=== PATIENT | male | born 1960 | race African-American/Black ===

== ENCOUNTER 2018-11-13 12:06 | Emergency (ER) | payer MEDICAID, OTHER ==
[~2018-11-13] VITALS: Ht 170.2 cm; Wt 74.8 kg
[~2018-11-13 12:06] MED LIST: ASPI1TAB19 PO; ATOR20TA PO; CARI-277; FUR40T PO; MET5XLT PO; METO100T87 PO; NITR0.4D10; PERCOT PO; POTA20TA53 PO
[2018-11-13] MEDS ORDERED: cloNIDine HCL 0.1 MG TAB PO ONE (16:30)
[2018-11-13 16:32] VITALS: BP 197/125
[2018-11-13] MEDS ORDERED: METOPROLOL TARTRATE 50 MG TAB PO ONE (16:45)
== END 2018-11-13 18:11 | disposition home or self-care (01) ==
LOC: ER 12:06
DX: I10 Essential (primary) hypertension (principal); Z76.0 Encounter for issue of repeat prescription; Z95.1 Presence of aortocoronary bypass graft

== ENCOUNTER 2021-08-01 00:06 | Emergency (ER) | payer SELFPAY ==
[~2021-08-01] VITALS: Ht 172.7 cm; Wt 77.1 kg
[~2021-08-01 00:06] MED LIST changes: -MET5XLT PO; +METO-6 PO; -NITR0.4D10; +NITR0.4D5; +POTA-220 PO; -POTA20TA53 PO
[2021-08-01] MEDS ORDERED: SODIUM CHLORIDE 0.9% 1,000 ML IV ONE ×2 (00:45→10:15)
[2021-08-01 02:10] LABS: Basophils # (auto) 0 10 ^3/uL (0-0.2); Basophils % (auto) 0.2 % (0.0-2.0); Eosinophils # (auto) 0 10 ^3/uL (0-0.8); Eosinophils % (auto) 0.1 % (0.0-7.0); Hematocrit 47.5 % (41.0-53.0); Hemoglobin 15.7 g/dL (13.5-17.5); Lymphocytes # (auto) 1.3 10 ^3/uL (0.4-5.4); Lymphocytes % (auto) 16.6 % (10.0-50.0); Mean Corpuscular Hgb Conc. 33.1 g/dL (32.0-36.0); Mean Corpuscular Volume 87.8 fL (80.0-100.0); Monocytes # (auto) 1.1 10 ^3/uL (0-1.3); Monocytes % (auto) 13.5 % (0.0-12.0); Neutrophils # (auto) 5.6 10 ^3/uL (1.6-8.6); Neutrophils % (auto) 69.6 % (37.0-80.0); Nucleated Red Blood Cells % 0.1 %; Red Cell Distribution Width 14.4 % (11.8-14.3)
[2021-08-01 03:15] LABS: Calcium 8.3 mg/dL (8.5-10.1); Potassium 3.6 mmol/L (3.5-5.1)
[2021-08-01 03:18] LABS: BUN/Creatinine Ratio 12.9
[2021-08-01 12:15] VITALS: BP 162/93
== END 2021-08-01 12:23 | disposition home or self-care (01) ==
LOC: EDBD 00:06 → ER 00:06
DX: R42 Dizziness and giddiness (principal); I10 Essential (primary) hypertension; I25.2 Old myocardial infarction; Z86.73 Personal history of transient ischemic attack (TIA), and cerebral infarction without residual deficits; Z95.1 Presence of aortocoronary bypass graft; Z79.899 Other long term (current) drug therapy
CPT/HCPCS: 36415; 71045; 80048; 83605; 84484; 85025; 93005; 96360; 96361; 99285; J7030

== ENCOUNTER 2021-08-05 15:29 | Emergency (ER) | payer SELFPAY ==
[~2021-08-05] VITALS: Ht 170.2 cm; Wt 79.4 kg
[2021-08-05] MEDS ORDERED: AZITHROMYCIN 500MG/ 250ML 250 ML IV ONE (18:15)
[2021-08-05] MEDS ORDERED: DexAMETHasone SOD PHOS 10MG/1ML VIAL INJ IV ONE (18:15)
[2021-08-05] MEDS ORDERED: cefTRIAXone 1GM/50ML D5W 50 ML IV ONE (18:15)
[2021-08-05 19:13] LABS: Basophils # (auto) 0 10 ^3/uL (0-0.2); Basophils % (auto) 0.1 % (0.0-2.0); Eosinophils # (auto) 0 10 ^3/uL (0-0.8); Hematocrit 45.2 % (41.0-53.0); Hemoglobin 15.1 g/dL (13.5-17.5); Lymphocytes # (auto) 1.1 10 ^3/uL (0.4-5.4); Lymphocytes % (auto) 17.4 % (10.0-50.0); Mean Corpuscular Hemoglobin 28.3 pg (28.0-32.0); Mean Corpuscular Hgb Conc. 33.3 g/dL (32.0-36.0); Mean Corpuscular Volume 84.8 fL (80.0-100.0); Monocytes # (auto) 0.4 10 ^3/uL (0-1.3); Monocytes % (auto) 6.7 % (0.0-12.0); Neutrophils # (auto) 4.8 10 ^3/uL (1.6-8.6); Neutrophils % (auto) 75.8 % (37.0-80.0); Nucleated Red Blood Cells % 0.1 %; Red Blood Cells 5.32 10^6/uL (4.5-5.90); Red Cell Distribution Width 14.1 % (11.8-14.3); White Blood Cell 6.3 10^3/uL (4.4-10.8)
[2021-08-05 19:22] LABS: Albumin 3.5 g/dL (3.4-5.0); Calcium 8.2 mg/dL (8.5-10.1); Potassium 3.3 mmol/L (3.5-5.1)
[2021-08-05 19:28] LABS: BUN/Creatinine Ratio 10.5; Bilirubin, Total 0.7 mg/dL (0.2-1.0)
[2021-08-05 21:40] VITALS: BP 150/68
== END 2021-08-05 21:42 | disposition home or self-care (01) ==
LOC: ER 15:29
DX: U07.1 COVID-19 (principal); J12.82 Pneumonia due to coronavirus disease 2019; I10 Essential (primary) hypertension; I25.2 Old myocardial infarction; Z86.73 Personal history of transient ischemic attack (TIA), and cerebral infarction without residual deficits; Z95.1 Presence of aortocoronary bypass graft
CPT/HCPCS: 36415; 70450; 71046; 80053; 82728; 84484; 85025; 86141; 87426

== ENCOUNTER 2024-01-14 16:13 | Inpatient (IN) | payer OTHER ==
[~2024-01-14] VITALS: Ht 172.7 cm; Wt 83.0 kg
[2024-01-14 16:48] LABS: Basophils # (auto) 0.1 10 ^3/uL (0-0.2); Eosinophils # (auto) 0.3 10 ^3/uL (0-0.8); Eosinophils % (auto) 2.4 % (0.0-7.0); Hematocrit 43.7 % (41.0-53.0); Hemoglobin 14.8 g/dL (13.5-17.5); Lymphocytes # (auto) 2.2 10 ^3/uL (0.4-5.4); Lymphocytes % (auto) 17.8 % (10.0-50.0); Mean Corpuscular Hemoglobin 28.3 pg (28.0-32.0); Mean Corpuscular Hgb Conc. 33.9 g/dL (32.0-36.0); Mean Corpuscular Volume 83.6 fL (80.0-100.0); Monocytes % (auto) 7.8 % (0.0-12.0); Neutrophils # (auto) 8.9 10 ^3/uL (1.6-8.6); Nucleated Red Blood Cells % 0.2 %; Red Blood Cells 5.23 10^6/uL (4.5-5.90); Red Cell Distribution Width 16.1 % (11.8-14.3); White Blood Cell 12.6 10^3/uL (4.4-10.8)
[2024-01-14 17:23] LABS: Alanine Aminotransferase 21 U/L (7-40); Alkaline Phosphatase 101 U/L (46-116); Anion Gap 10 (5-15); Aspartate Aminotransferase 63 U/L (13-40); BUN/Creatinine Ratio 7.1 (10.0-20.0); Blood Urea Nitrogen 9 mg/dL (9-23); Carbon Dioxide 23 mmol/L (20-30); Chloride 105 mmol/L (98-107); Glucose 127 mg/dL (74-106); Potassium 3.8 mmol/L (3.5-5.1); Sodium 138 mmol/L (136-145)
[2024-01-14 17:24] LABS: Albumin 3.9 g/dL (3.2-4.8); Bilirubin, Total 0.4 mg/dL (0.2-1.0); Total Protein 7.5 g/dL (5.7-8.2)
[2024-01-14] MEDS: HEPARIN SODIUM (PORCINE) 5000 UNITS/ML 1ML VIAL IV ONE ×2 (18:15→18:50)
[2024-01-14] MEDS ORDERED: NITROGLYCERIN 0.4 MG SL TAB SL PRN (18:15)
[2024-01-14] MEDS ORDERED: ACETAMINOPHEN 325 MG TAB PO PRN (18:15)
[2024-01-14 18:25] VITALS: PULSE 93; RESP 19; O2SAT 98
[2024-01-14] MEDS ORDERED: HEPARIN DRIP/D5W 100UNITS/ML 250 ML IV SCH (18:30)
[2024-01-14] MEDS: HEPARIN DRIP/D5W 100UNITS/ML 250 ML IV SCH (18:50)
[2024-01-14] MEDS: ASPirin 81 mg TAB PO ONE (18:52)
[2024-01-14] MEDS: ATORVASTATIN 20 MG TAB PO ONE (18:53)
[2024-01-14 19:06] LABS: Basophils # (auto) 0.1 10 ^3/uL (0-0.2); Basophils % (auto) 0.7 % (0.0-2.0); Eosinophils # (auto) 0.3 10 ^3/uL (0-0.8); Eosinophils % (auto) 2.4 % (0.0-7.0); Hematocrit 42.7 % (41.0-53.0); Hemoglobin 14.2 g/dL (13.5-17.5); Lymphocytes # (auto) 2.5 10 ^3/uL (0.4-5.4); Lymphocytes % (auto) 19.4 % (10.0-50.0); Mean Corpuscular Hemoglobin 27.3 pg (28.0-32.0); Mean Corpuscular Hgb Conc. 33.3 g/dL (32.0-36.0); Mean Corpuscular Volume 82.1 fL (80.0-100.0); Monocytes # (auto) 1.1 10 ^3/uL (0-1.3); Monocytes % (auto) 8.6 % (0.0-12.0); Neutrophils # (auto) 8.8 10 ^3/uL (1.6-8.6); Neutrophils % (auto) 68.9 % (37.0-80.0); Nucleated Red Blood Cells % 0.6 %; Red Cell Distribution Width 15.9 % (11.8-14.3); White Blood Cell 12.8 10^3/uL (4.4-10.8)
[2024-01-14 19:21] LABS: INR 1.01 (0.9-1.15); Partial Thromboplastin Time 25.7 SEC (24.5-34.5); Prothrombin Time 10.7 sec (9.3-11.8)
[2024-01-14 19:23] LABS: Magnesium 1.8 mg/dL (1.6-2.6); Triglycerides 465 mg/dL (< 150)
[2024-01-14 19:25] LABS: Cholesterol 210 mg/dL (< 200); HDL Cholesterol 32 mg/dL (40-59)
[2024-01-14 19:48] VITALS: PULSE 93
[2024-01-14] MEDS ORDERED: MORPHINE SULFATE INJ 2 MG/ml SYRG IV PRN (20:00)
[2024-01-14] MEDS ORDERED: hydrALAZINE HCL 20 MG/ML VL IV PRN (20:00)
[2024-01-14] MEDS ORDERED: ONDANSETRON HCL 4 MG/2 ML VIAL IV PRN (20:00)
[2024-01-14 21:39] LABS: Urine Bacteria None Seen /hpf (None Seen)
[2024-01-14 21:51] LABS: Urine Blood Negative /uL (Negative); Urine Clarity Clear (Clear); Urine Color Light-Yellow (Yellow); Urine Protein, UAD Negative (Negative); Urine Urobilinogen Normal (Negative); Urine WBC <1 /hpf (0 - 3)
[2024-01-14] MEDS: METOPROLOL TARTRATE 25 MG TAB PO SCH (22:43)
[2024-01-15] VITALS (9 sets, daily range): BP systolic 109–146; BP diastolic 67–115; PULSE 80–100; RESP 12–20; TEMP 98.3; O2SAT 90–99
[2024-01-15 00:37] LABS: INR 1.05 (0.9-1.15); Prothrombin Time 11.1 sec (9.3-11.8)
[2024-01-15 00:40] LABS: Partial Thromboplastin Time 78.3 SEC (24.5-34.5)
[2024-01-15] MEDS: MORPHINE SULFATE INJ 2 MG/ml SYRG IV PRN (03:46)
[2024-01-15 07:08] LABS: INR 1.07 (0.9-1.15); Partial Thromboplastin Time 48.2 SEC (24.5-34.5); Prothrombin Time 11.3 sec (9.3-11.8)
[2024-01-15 08:44] LABS: Basophils # (auto) 0.1 10 ^3/uL (0-0.2); Basophils % (auto) 0.5 % (0.0-2.0); Eosinophils # (auto) 0.3 10 ^3/uL (0-0.8); Eosinophils % (auto) 2.9 % (0.0-7.0); Hematocrit 43.3 % (41.0-53.0); Hemoglobin 14.4 g/dL (13.5-17.5); Lymphocytes # (auto) 2.5 10 ^3/uL (0.4-5.4); Lymphocytes % (auto) 20.4 % (10.0-50.0); Mean Corpuscular Hemoglobin 27.2 pg (28.0-32.0); Mean Corpuscular Hgb Conc. 33.3 g/dL (32.0-36.0); Mean Corpuscular Volume 81.7 fL (80.0-100.0); Monocytes # (auto) 1.1 10 ^3/uL (0-1.3); Monocytes % (auto) 8.8 % (0.0-12.0); Neutrophils # (auto) 8.1 10 ^3/uL (1.6-8.6); Neutrophils % (auto) 67.4 % (37.0-80.0); Nucleated Red Blood Cells % 0.1 %; Red Blood Cells 5.29 10^6/uL (4.5-5.90); Red Cell Distribution Width 15.9 % (11.8-14.3); White Blood Cell 12.1 10^3/uL (4.4-10.8)
[2024-01-15] MEDS ORDERED: ATOR-507 PO (10:10)
[2024-01-15] MEDS ORDERED: NAP500T PO (10:14)
[2024-01-15] MEDS ORDERED: MET25T PO (10:14)
[2024-01-15] MEDS ORDERED: LOSA100T33 PO (10:14)
[2024-01-15] MEDS: ASPirin 81 mg TAB PO SCH (11:01)
[2024-01-15 14:44] LABS: INR 1.08 (0.9-1.15); Partial Thromboplastin Time 57.3 SEC (24.5-34.5); Prothrombin Time 11.4 sec (9.3-11.8)
[2024-01-15] MEDS: IODIXANOL 320MG/ML 100ML BTL IV ONE ×2 (14:54→16:40)
[2024-01-15] MEDS: LIDOCAINE 2%HCL (LOCAL ANESTH.) INJ 20ML MDV ONE (14:54)
[2024-01-15] MEDS: ANGIOMAX 250 MG VIAL IV ONE (15:05)
[2024-01-15] MEDS: fentaNYL CITRATE 100 MCG/2 ML VL ONE (15:05)
[2024-01-15] MEDS: MIDAZOLAM HCL 2MG/2ML 2ml VIAL (1mg/ml) ONE (15:05)
[2024-01-15] MEDS: SODIUM CHL 0.9% 0 ML ONE (15:06)
[2024-01-15] MEDS: hydrALAZINE HCL 20 MG/ML VL ONE (16:41)
[2024-01-15] MEDS: ATORVASTATIN 20 MG TAB PO SCH (21:20)
[2024-01-15] MEDS: CLOPIDOGREL BISULFATE 75 MG TAB PO ONE (22:53)
[2024-01-16] MEDS ORDERED: ASPI-325 PO (00:25)
[2024-01-16] MEDS ORDERED: ATOR-47 PO (00:25)
[2024-01-16] MEDS ORDERED: CLOP75TA28 PO (00:26)
[2024-01-16] MEDS ORDERED: LOSA100T33 PO (00:27)
[2024-01-16] MEDS ORDERED: MET25T PO (00:27)
[2024-01-16 04:44] VITALS: BP 109/51; PULSE 91; RESP 18; TEMP 98.2; O2SAT 95
[2024-01-16 05:38] LABS: Basophils # (auto) 0 10 ^3/uL (0-0.2); Basophils % (auto) 0.4 % (0.0-2.0); Eosinophils # (auto) 0.2 10 ^3/uL (0-0.8); Eosinophils % (auto) 2.2 % (0.0-7.0); Hematocrit 41.2 % (41.0-53.0); Lymphocytes % (auto) 17.7 % (10.0-50.0); Mean Corpuscular Hemoglobin 27.9 pg (28.0-32.0); Mean Corpuscular Hgb Conc. 33.9 g/dL (32.0-36.0); Mean Corpuscular Volume 82.3 fL (80.0-100.0); Monocytes % (auto) 8.7 % (0.0-12.0); Neutrophils # (auto) 7.9 10 ^3/uL (1.6-8.6); Nucleated Red Blood Cells % 0.1 %; Red Cell Distribution Width 15.8 % (11.8-14.3); White Blood Cell 11.1 10^3/uL (4.4-10.8)
[2024-01-16 05:53] LABS: Alanine Aminotransferase 19 U/L (7-40); Albumin 3.8 g/dL (3.2-4.8); Alkaline Phosphatase 96 U/L (46-116); Anion Gap 7 (5-15); Aspartate Aminotransferase 36 U/L (13-40); Blood Urea Nitrogen 14 mg/dL (9-23); Calcium 9.8 mg/dL (8.7-10.4); Carbon Dioxide 26 mmol/L (20-30); Chloride 104 mmol/L (98-107); Glucose 125 mg/dL (74-106); Potassium 3.3 mmol/L (3.5-5.1); Sodium 137 mmol/L (136-145)
[2024-01-16 05:54] LABS: Bilirubin, Total 0.5 mg/dL (0.2-1.0); Total Protein 7.1 g/dL (5.7-8.2)
[2024-01-16 08:00] VITALS: PULSE 90
[2024-01-16 09:21] VITALS: BP 130/66; PULSE 83; RESP 16; TEMP 98.6; O2SAT 96
[2024-01-16] MEDS: POTASSIUM CHL 20 Meq TABLET PO ONE (09:41)
[2024-01-16] MEDS: CLOPIDOGREL BISULFATE 75 MG TAB PO SCH (09:42)
[2024-01-16 13:00] VITALS: BP 125/67; PULSE 98; RESP 16; TEMP 98.4; O2SAT 93
== END 2024-01-16 14:50 | disposition home or self-care (01) | DRG 282 ==
LOC: ER 16:13 → EDBD 16:13 → TELE 20:09 → TELE-WESTW 01-15 17:29
PROVIDERS: ADMIT Hospitalist; ATTEND Student in an Organized Health Care Education/Training Program
PROC: B211YZZ Fluoroscopy of Multiple Coronary Arteries using Other Contrast (ICD-10-PCS; principal; 2024-01-15)
PROC: B310YZZ Fluoroscopy of Thoracic Aorta using Other Contrast (ICD-10-PCS; 2024-01-15)
PROC: B44LZZZ Ultrasonography of Femoral Artery (ICD-10-PCS; 2024-01-15)
PROC: 4A023N7 Measurement of Cardiac Sampling and Pressure, Left Heart, Percutaneous Approach (ICD-10-PCS; 2024-01-15)
PROC: B213YZZ Fluoroscopy of Multiple Coronary Artery Bypass Grafts using Other Contrast (ICD-10-PCS; 2024-01-15)
DX: I21.4 Non-ST elevation (NSTEMI) myocardial infarction (principal); I25.10 Atherosclerotic heart disease of native coronary artery without angina pectoris; N18.9 Chronic kidney disease, unspecified; E78.5 Hyperlipidemia, unspecified; M54.50 Low back pain, unspecified; I12.9 Hypertensive chronic kidney disease with stage 1 through stage 4 chronic kidney disease, or unspecified chronic kidney disease; I25.2 Old myocardial infarction; Z95.1 Presence of aortocoronary bypass graft; Z79.82 Long term (current) use of aspirin; Z79.899 Other long term (current) drug therapy; Z82.62 Family history of osteoporosis
CPT/HCPCS: 36415; 71045; 76937; 80053; 80061; 81001; 83036; 83735; 83880; 84484; 85025; 85610; 85730; 93005; 93306; 93459; 96365; 96375; 99152; G0378; J2250; Q9967

== ENCOUNTER 2024-11-04 01:59 | Emergency (ER) | payer OTHER ==
[~2024-11-04] VITALS: Ht 172.7 cm; Wt 83.3 kg
[~2024-11-04 01:59] MED LIST changes: +ASPI-325 PO; -ASPI1TAB19 PO; +ATOR-47 PO; -ATOR20TA PO; -CARI-277; +CLOP75TA28 PO; -FUR40T PO; +LOSA100T33 PO; +MET25T PO; -METO-6 PO; -METO100T87 PO; -NITR0.4D5; -PERCOT PO; -POTA-220 PO
[2024-11-04] MEDS: cloNIDine HCL 0.1 MG TAB PO ONE (02:37)
[2024-11-04] MEDS ORDERED: IBUPROFEN 600 MG TAB PO ONE (03:00)
[2024-11-04] MEDS ORDERED: ACETAMINOPHEN 500 MG TAB or CAP PO ONE (03:00)
[2024-11-04 03:44] VITALS: BP 148/89; TEMP 98.9
[2024-11-04] MEDS ORDERED: LIDO5CRE18 EX (03:45)
[2024-11-04] MEDS ORDERED: DICL1GEL59 EX (03:45)
--- NOTE | 2024-11-04 03:45 | ED.PDOC ---
Musculoskeletal HPI Comments 63-year-old male presents with complaint of right arm and shoulder pain, today. Patient endorses on having, intermittently, for the past 3 weeks and previous shoulder injury, that worsened and awoke him from his sleep, this morning. He describes pain as a "fire burning" sensation in addition to having only relief with Naprosyn, Gabapentin, and Tylenol medication use prior to ED arrival. Patient states on being evaluated for pain in the past by his primary care provider and diagnosed with arthritis of the right shoulder. He then comments on suspecting pain being, possibly, related to a previous clavicle injury that required surgical intervention years ago but reports on being unsure on which clavicle was it then. He has an upcoming appointment with pain management. He denies any numbness, tingling, weakness, or other associated symptoms or modifying factors at this time. Per previous [facility] medical records, patient has a history of arthritis, CAD, HLD, HTN, NSTEMI, CAD, and PTCA x4. Chief Complaint: Upper Extremity Time Seen by MD: 02:37 Primary Care Provider: UNKNOWN Reviewed Notes: Nurses Notes, Medications, Allergies Allergies: Coded Allergies: NO KNOWN ALLERGIES (Unverified , 01/24/11) Home Meds Active Scripts Diclofenac Sodium (Topical) (Voltaren Arthritis Pain) 1 % Gel, 1 % EX BIDPRN PRN for 5 Days, #10 GEL Prov:JOANNA TURNER MD 11/04/24 Lidocaine (Anorectal) (Lidocaine) 5 % Cre, 5 % EX TIDPRN PRN for 5 Days, #15 CRE Prov:JOANNA TURNER MD 11/04/24 Losartan Potassium & Hydrochlo (Losartan Potassium/Hydroc) 1 Tab Tab, 1 TAB PO DAILY for 90 Days, #90 TAB 2 Refills [Losartan/hydrochlorothiazide 100/12.5 mg] Prov:CECE SANDOVAL DO 01/16/24 Metoprolol Tartrate (Lopressor) 25 Mg Tb, 1 TAB PO DAILY for 90 Days, #90 TAB 2 Refills Prov:CECE SANDOVAL DO 01/16/24 Clopidogrel Bisulfate (Plavix) 75 Mg Tab, 75 MG PO DAILY for 90 Days, #90 TAB 3 Refills Prov:CECE SANDOVAL DO 01/16/24 Atorvastatin Calcium (ATORVASTATIN CALCIUM) 80 Mg Tab, 80 MG PO DAILY for 90 Days, #90 TAB 2 Refills Prov:CECE SANDOVAL DO 01/16/24 Aspirin (Aspirin Low Dose) 81 Mg Tab, 81 MG PO DAILY for 90 Days, #90 TAB 2 Refills Prov:CECE SANDOVAL DO 01/16/24 Information Source: Patient Mode of Arrival: Ambulatory Review of Systems: REVIEW OF SYSTEMS: No fever, no chills, HEENT: No neck pain, no blurred vision Cardiac: No chest pain. No palpitations. Lungs: No shortness of breath, GI: No abdominal pain, no vomiting Musculoskeletal: Right shoulder and arm pain, no back pain Skin: No rash, no wound Neuro: No headache, no dizziness, no syncope Vital Signs Vital Signs Date Time Temp Pulse Resp B/P (MAP) Pulse Ox O2 Delivery O2 Flow Rate FiO2 11/04/24 03:54 89 19 97 Room Air* 0 21 11/04/24 03:44 98.9 148/89 (108) 98.9 Physical Exam General: Awake, alert and oriented. No acute distress. Skin: Skin in warm, dry and intact without rashes or lesions. HEENT: The head is normocephalic and atraumatic. Conjunctivae are clear without exudates or hemorrhage. Sclera is non-icteric. Neck: Normal range of motion. No JVD. Cardiac: Regular rate Respiratory: No signs of respiratory distress. No Stridor. Extremities: Right anterior shoulder tenderness, with decreased range of motion and no deformity or edema. Otherwise upper and lower extremities are atraumatic in appearance without tenderness or deformity. Neurological: The patient is awake, alert and oriented to person, place, and time with normal speech. Speech is clear. There is no facial asymmetry. Psychiatric: Appropriate mood and affect. Good judgement and insight. No visual or auditory hallucinations. No suicidal or homicidal ideation. Past Medical History PAST MEDICAL HISTORY: Arthritis, CAD, High Lipids, HTN, [place] (NSTEMI) Surgical History: CABG, PTCA (X4) Family History Family History: No family hx of HTN Social History Smoker: Non-Smoker Alcohol: Denies ETOH Use Drugs: Denies Drug Use Lives In: Home Was a procedure done? Was a procedure done?: No Differential Diagnosis EXT Differential Diagnosis: Sprain, DJD, Strain, Neurovascular injury, Arthritis X-Ray, Labs, Meds, VS Vital Signs Date Time Temp Pulse Resp B/P (MAP) Pulse Ox O2 Delivery O2 Flow Rate FiO2 11/04/24 03:54 89 19 97 Room Air* 0 21 11/04/24 03:44 98.9 67 19 148/89 (108) 100 98.9 11/04/24 03:43 148/89 11/04/24 02:46 97.9 71 14 191/108 (135) 99 11/04/24 02:37 191/108 Current Medications Medications (Trade) Dose Ordered Sig/Terry Route Start Time Stop Time Status Last Admin Clonidine HCl (Catapres Tablet) 0.1 mg ONCE ONCE PO 11/04/24 02:30 11/04/24 02:31 DC 11/04/24 02:37 Cyclobenzaprine HCl (Flexeril Tablet) 5 mg ONCE ONCE PO 11/04/24 03:30 11/04/24 03:31 DC 11/04/24 03:52 Time of 1ST Reevaluation: 03:07 Reevaluation 1ST: Unchanged Patient Education/Counseling: Treatment, Need For Follow Up Family Education/Counseling: No Family Present Departure 1 Departure Time of Disposition: 03:27 Impression: Primary Impression: Chronic shoulder pain Disposition: 01 HOME / SELF CARE / HOMELESS Condition: Stable Additional Instructions: ED DISCHARGE INSTRUCTIONS Instructions: Please read all instructions provided in this packet carefully. Although you have been discharged from the Emergency Department, this does not mean that you have a "clean bill of health". No definitive diagnosis for your symptoms has been made today. It is possible that you are in the process of developing a serious illness. This is why you must return to the ED without fail if any new or worsening symptoms (especially if your symptoms include chest eric n, trouble breathing, abdominal pain, fever, headache, confusion, trouble seeing, or trouble walking) It is also very important that you see a primary care doctor within the next 1-3 days to follow up. If you are unable to get an appointment, return to the ED for re-evaluation. Shoulder Pain: Care Instructions Overview You can hurt your shoulder by using it too much during an activity, such as fishing or baseball. It can also happen as part of the everyday wear and tear of getting older. Shoulder injuries can be slow to heal, but your shoulder should get better with time. Your doctor may recommend a sling to rest your shoulder. If you have injured your shoulder, you may need testing and treatment. Follow-up care is a lopez part of your treatment and safety. Be sure to make and go to all appointments, and call your doctor if you are having problems. It's also a good idea to know your test results and keep a list of the medicines you take. How can you care for yourself at home? Take pain medicines exactly as directed. If the doctor gave you a prescription medicine for pain, take it as prescribed. If you are not taking a prescription pain medicine, ask your doctor if you can take an [id number] medicine. Do not take two or more pain medicines at the same time unless the doctor told you to. Many pain medicines contain acetaminophen, which is Tylenol. Too much acetaminophen (Tylenol) can be harmful. If your doctor recommends that you wear a sling, use it as directed. Do not take it off before your doctor tells you to. Put ice or a cold pack on the sore area for 10 to 20 minutes at a time. Put a thin cloth between the ice and your skin. If there is no swelling, you can put moist heat, a heating pad, or a warm cloth on your shoulder. Some doctors suggest alternating between hot and cold. Rest your shoulder for a few days. If your doctor recommends it, you can then begin gentle exercise of the shoulder, but do not lift anything heavy. When should you call for help? Call 911 anytime you think you may need emergency care. For example, call if: You have chest pain or pressure. This may occur with: Sweating. Shortness of breath. Nausea or vomiting. Pain that spreads from the chest to the neck, jaw, or one or both shoulders or arms. Dizziness or lightheadedness. A fast or uneven pulse. After calling 911, chew 1 adult-strength aspirin. Wait for an ambulance. Do not try to drive yourself. Your arm or hand is cool or pale or changes color. Call your doctor now or seek immediate medical care if: You have signs of infection, such as: Increased pain, swelling, warmth, or redness in your shoulder. Red streaks leading from a place on your shoulder. Pus draining from an area of your shoulder. Swollen lymph nodes in your neck, armpits, or groin. A fever. Watch closely for changes in your health, and be sure to contact your doctor if: You cannot use your shoulder. Your shoulder does not get better as expected. Credits for Shoulder Pain: Care Instructions Current as of: March 26, 2024 Author: Colin HYGIEIA Staff Clinical Review Board All [employer] education is reviewed by a team that includes physicians, nurses, advanced practitioners, registered dieticians, and other healthcare professionals. e-Prescriptions Diclofenac Sodium (Topical) (Voltaren Arthritis Pain) 1 % Gel 1 % EX BIDPRN PRN for 5 Days, #10 GEL Prov: JOANNA TURNER MD 11/04/24 Lidocaine (Anorectal) (Lidocaine) 5 % Cre 5 % EX TIDPRN PRN for 5 Days, #15 CRE Prov: JOANNA TURNER MD 11/04/24 Comments 63-year-old male with chronic right shoulder pain exacerbation. He is advised have supportive treatment at home. Advised to follow up with his primary care provider for referral to Orthopedics/pain management. Advised to return to the emergency department with any new, worsening or concerning symptoms Extensive evaluation was performed in attempt to identify or rule out: (See differential diagnosis section) The following tests were ordered, and results were reviewed by me: (See diagnostic results section) The following test were independently interpreted by me: N/A I reviewed and agreed with the following test results read by other providers: N/A I reviewed the following notes from the pt's past medical encounters: December/2023 encounter for abnormal labs Additional information was gathered from interviewing the following independent historians: N/A Discussion of management or test interpretation with external physician/other qualified health human services care specialist: N/A Decision regarding hospitalization or escalation of hospital level of care: Risks and benefits of admission for further treatment of patient's condition was considered however due to patient's stable condition patient will be discharged to follow up closely or return to care for worsening of condition or inability to follow up. Critical Care Note Critical Care Time?: No Stability Stability form required: No Heart Score Heart Score: Heart Score Response (Comments) Value History N/A 0 EKG N/A 0 Age N/A 0 Risk Factors N/A 0 Troponin N/A 0 Total 0 I personally scribed for JOANNA TURNER MD ([email or web address]) on 11/04/24 at 04:12. Electronically submitted by Marco Aragon ([email or web address]). JOANNA TURNER MD Nov 04, 2024 03:45
[2024-11-04] MEDS: CYCLOBENZAPRINE HCL 10 MG TAB PO ONE (03:52)
[2024-11-04] MEDS: LIDOCAINE 5% TOPICAL PATCH TOP ONE (03:52)
[2024-11-04 03:54] VITALS: PULSE 89; RESP 19; O2SAT 97
== END 2024-11-04 04:00 | disposition home or self-care (01) ==
LOC: ER 01:59
DX: G89.29 Other chronic pain (principal); M25.511 Pain in right shoulder; E78.5 Hyperlipidemia, unspecified; I10 Essential (primary) hypertension; Z98.890 Other specified postprocedural states; Z79.899 Other long term (current) drug therapy; Z79.84 Long term (current) use of oral hypoglycemic drugs

== ENCOUNTER 2025-05-02 01:06 | Inpatient (IN) | payer MEDICAID, MEDICARE, OTHER ==
[~2025-05-02] VITALS: Ht 172.7 cm; Wt 83.0 kg
[2025-05-02] VITALS (11 sets, daily range): BP systolic 144–171; BP diastolic 87–109; PULSE 62–85; RESP 16–20; TEMP 97.6–97.8; O2SAT 97–100
[~2025-05-02 01:06] MED LIST changes: +DICL1GEL59 EX; +LIDO5CRE18 EX
--- NOTE | 2025-05-02 01:26 | ED.PDOC ---
HPI Comments 64-year-old male who came to ER via EMS for chest pains. Patient has an extensive cardiac history, hypertension, pleural effusion, CAD, GA, COPD, status post CABG cardiac stents. Has been complaining of midsternal chest pains for the past week, pressure, intermittent, worsens with movements. Denies any shortness a breath nausea or vomiting. States pain has significantly worsened in the past few hours prompting checkup. Patient was given aspirin and nitrogly cerin while EN route to the ER Chief Complaint: Chest Pain Time Seen by MD: 01:25 Primary Care Provider: UNKNOWN Reviewed Notes: Nurses Notes Allergies: Coded Allergies: NO KNOWN ALLERGIES (Unverified , 01/24/11) Home Meds Active Scripts Diclofenac Sodium (Topical) (Voltaren Arthritis Pain) 1 % Gel, 1 % EX BIDPRN PRN for 5 Days, #10 GEL Prov:JOANNA TURNER MD 11/04/24 Lidocaine (Anorectal) (Lidocaine) 5 % Cre, 5 % EX TIDPRN PRN for 5 Days, #15 CRE Prov:JOANNA TURNER MD 11/04/24 Losartan Potassium & Hydrochlo (Losartan Potassium/Hydroc) 1 Tab Tab, 1 TAB PO DAILY for 90 Days, #90 TAB 2 Refills [Losartan/hydrochlorothiazide 100/12.5 mg] Prov:CECE SANDOVAL DO 01/16/24 Metoprolol Tartrate (Lopressor) 25 Mg Tb, 1 TAB PO DAILY for 90 Days, #90 TAB 2 Refills Prov:CECE SANDOVAL DO 01/16/24 Clopidogrel Bisulfate (Plavix) 75 Mg Tab, 75 MG PO DAILY for 90 Days, #90 TAB 3 Refills Prov:CECE SANDOVAL DO 01/16/24 Atorvastatin Calcium (ATORVASTATIN CALCIUM) 80 Mg Tab, 80 MG PO DAILY for 90 Days, #90 TAB 2 Refills Prov:CECE SANDOVAL DO 01/16/24 Aspirin (Aspirin Low Dose) 81 Mg Tab, 81 MG PO DAILY for 90 Days, #90 TAB 2 Refills Prov:CECE SANDOVAL DO 01/16/24 Information Source: Patient, Emergency Med Personnel Mode of Arrival: EMS Severity: Moderate Timing: Days Duration: Intermittent Prehospital treatment: 12 Lead EKG, ASA, NTG Location: Substernal Radiation: No Radiation Quality: Pressure Onset: With Light Exertion Cardiac Risk Factors: Hyperlipidemia, HTN History of: Similar pain in past Associated Signs and Symptoms: None Past Medical History PAST MEDICAL HISTORY: Arthritis, CAD, COPD, High Lipids, HTN, GA Past Medical History (Other): Left pleural effusion Surgical History: CABG, PTCA Family History Family History: No family hx of HTN Social History Smoker: Non-Smoker Alcohol: Denies ETOH Use Drugs: Denies Drug Use Lives In: Home Constitutional: denies: chills, diaphoresis, fatigue, fever, malaise, sweats, weakness, others EENTM: denies: blurred vision, double vision, ear bleeding, ear discharge, ear drainage, ear pain, ear ringing, eye pain, eye redness, hearing loss, mouth pain, mouth swelling, nasal discharge, nose bleeding, nose congestion, nose pain, photophobia, tearing, throat pain, throat swelling, voice changes, others Respiratory: denies: cough, hemoptysis, orthopnea, SOB at rest, shortness of breath, SOB with excertion, stridor, wheezing, others Cardiovascular: reports: chest pain; denies: dizzy spells, diaphoresis, Dyspnea on exertion, edema, irregular heart beat, left arm pain, lightheadedness, palpitations, PND, syncope, others Gastrointestinal: denies: abdomen distended, abdominal pain, blood streaked bowels, constipated, diarrhea, dysphagia, difficulty swallowing, hematemesis, melena, nausea, poor appetite, poor fluid intake, rectal bleeding, rectal pain, vomiting, others Genitourinary: denies: burning, dysuria, flank pain, frequency, hematuria, inc ontinence, penile discharge, penile sore, pain, testicle pain, testicle swelling, urgency, others Neurological: denies: dizziness, fainting, headache, left sided numbness, left sided weakness, numbness, paresthesia, pre-existing deficit, right sided numbness, right sided weakness, seizure, speech problems, tingling, tremors, weakness, others Musculoskeletal: denies: back pain, gout, joint pain, joint swelling, muscle pain, muscle stiffness, neck pain, others Integumetry: denies: bruises, change in color, change in hair/nails, dryness, laceration, lesions, lumps, rash, wounds, others Allergic/Immunocompromised: denies: Difficulty Healing, Frequent Infections, Hives, Itching, others Hematologic/Lymphatic: denies: anemia, blood clots, easy bleeding, easy bruising, swollen glands, others Endocrine: denies: excessive hunger, excessive sweating, excessive thirst, excessive urination, flushing, intolerance to cold, intolerance to heat, unexplained weight gain, unexplained weight loss, others Psychiatric: denies: anxiety, bipolar disorder, depression, hopeless, panic disorder, schizophrenia, sleepless, suicidal, others Physical Exam General Appearance: No Apparent Distress, Normal HEENT: Normal ENT Inspection, Pharynx Normal, TMs Normal Neck: Full Range of Motion, Non-Tender, Normal, Normal Inspection Respiratory: Chest Non-Tender, Lungs Clear, No Accessory Muscle Use, No Respiratory Distress, Normal Breath Sounds Cardiovascular: No Edema, No JVD, No Murmur, No Gallop, Normal Peripheral Pulses, Regular Rate/Rhythm Breast Exam: Deferred Gastrointestinal: No Organomegaly, Non Tender, No Pulsatile Mass, Normal Bowel Sounds, Soft Genitalia: Deferred Pelvic: Deferred Rectal: Deferred Extremities: No calf tenderness, Normal capillary refill, Normal inspection, Normal range of motion, Non-tender, No pedal edema Musculoskeletal : Apperance: Normal Neurologic: Alert, marine technician II-XII nml as Tested, No Motor Deficits, Normal Affect, Normal Mood, No Sensory Deficits Cerebellar Function: Normal Reflexes: Normal Skin: Dry, Normal Color, Warm Lymphatic: No Adenopathy Was a procedure done? Was a procedure done?: No CP Differential Dx Differential Diagnosis: Angina, Anxiety / Panic Attack Differential Diagnosis: Angina, Chest Wall Pain, Costochondritis, Esophageal reflux/spasm, Gastritis, Myocardial Infarction X-Ray, Labs, Meds, VS Vital Signs Date Time Temp Pulse Resp B/P (MAP) Pulse Ox O2 Delivery O2 Flow Rate FiO2 05/02/25 02:04 71 05/02/25 01:17 73 05/02/25 01:06 98.4 77 20 181/98 99 98.4 Lab Test 05/02/25 02:20 05/02/25 01:28 Range/Units Troponin I High Sensitivity 19 18 </=54 ng/L White Blood Count 10.3 4.4-10.8 10^3/uL Red Blood Count 4.76 4.5-5.90 10^6/uL Hemoglobin 13.3 L 13.5-17.5 g/dL Hematocrit 38.9 L 41.0-53.0 % Mean Corpuscular Volume 81.6 80.0-100.0 fL Mean Corpuscular Hemoglobin 27.9 L 28.0-32.0 pg Mean Corpuscular Hemoglobin Concent 34.2 32.0-36.0 g/dL Red Cell Distribution Width 15.4 H 11.8-14.3 % Platelet Count 178 140-450 10^3/uL Mean Platelet Volume 8.5 6.9-10.8 fL Neutrophils (%) (Auto) 71.4 37.0-80.0 % Lymphocytes (%) (Auto) 16.6 10.0-50.0 % Monocytes (%) (Auto) 8.8 0.0-12.0 % Eosinophils (%) (Auto) 2.8 0.0-7.0 % Basophils (%) (Auto) 0.4 0.0-2.0 % Neutrophils # (Auto) 7.4 1.6-8.6 10 ^3/uL Lymphocytes # (Auto) 1.7 0.4-5.4 10 ^3/uL Monocytes # (Auto) 0.9 0-1.3 10 ^3/uL Eosinophils # (Auto) 0.3 0-0.8 10 ^3/uL Basophils # (Auto) 0 0-0.2 10 ^3/uL Nucleated Red Blood Cells 0.0 % Prothrombin Time 10.8 9.3-11.8 sec Prothrombin Time INR 1.02 0.9-1.15 Activated Partial Thromboplast Time 26.3 24.5-34.5 SEC Sodium Level 142 136-145 mmol/L Potassium Level 3.3 L 3.5-5.1 mmol/L Chloride Level 107 98-107 mmol/L Carbon Dioxide Level 25 20-31 mmol/L Anion Gap 10 5-15 Blood Urea Nitrogen 10 9-23 mg/dL Creatinine 1.13 0.700-1.30 mg/dL Glomerular Filtration Rate Calc 72 >90 mL/min BUN/Creatinine Ratio 8.8 L 10.0-20.0 Serum Glucose 136 H 74-106 mg/dL Calcium Level 8.9 8.7-10.4 mg/dL Magnesium Level 2.0 1.6-2.6 mg/dL Total Bilirubin 0.3 0.2-1.0 mg/dL Aspartate Amino Transferase (AST) 32 13-40 U/L Alanine Aminotransferase (ALT) 27 7-40 U/L Alkaline Phosphatase 93 46-116 U/L B-Type Natriuretic Peptide 154.90 0-100 pg/mL Total Protein 6.6 5.7-8.2 g/dL Albumin 3.7 3.2-4.8 g/dL CHEST RADIOGRAPH Indication: chest pain Technique: Single frontal view of the chest was obtained COMPARISON: XY CHEST PORTABLE on DOS: 01/14/24, CHEST TWO VIEWS ROUTINE on DOS: 08/05/21, CHEST PORTABLE on DOS: 08/01/21 FINDINGS: Lines and Tubes: None Lungs: Clear Pleura: No effusion. No pneumothorax. Cardiomediastinal contours: Unremarkable status post median sternotomy. Bones: Unremarkable IMPRESSION: 1. No radiographic evidence of acute cardiopulmonary abnormality. Time of 1ST Reevaluation: 01:21 Reevaluation 1ST: Unchanged Patient Education/Counseling: Diagnosis, Treatment Family Education/Counseling: No Family Present SEPSIS Sepsis Screen Date sepsis recognized/suspect: May 02, 2025 Time Sepsis recognized/suspect: 0106 Recent Procedure: No On Antibiotic Therapy: No Respiratory Rate >20: No Heart Rate >90: No Temp<36 C (96.8 F) or >38.3 C: No SBP <90 or MAP <65 mmHG: No New Acute Mental Status Change: No Is the patient on CPAP, BIPAP,: No Physician Orders Electrocardigram (05/02/25 01:16) Troponin-I Hs (05/02/25 04:16) Chest Xray 1 View (05/02/25 01:16) Vital Signs Date Time Temp Pulse Resp B/P (MAP) Pulse Ox O2 Delivery O2 Flow Rate FiO2 05/02/25 02:04 71 05/02/25 01:17 73 05/02/25 01:06 98.4 77 20 181/98 99 98.4 Laboratory Tests Test 05/02/25 01:28 White Blood Count 10.3 10^3/uL (4.4-10.8) Departure 1 Departure Time of Disposition: 03:30 Impression: Primary Impression: Acute coronary syndrome Disposition: ADMITTED INPATIENT Admit to: Tele Condition: Guarded Discharged With: Self Comments 64-year-old male with prior significant cardiac disease now with some chest pain. Lab results reviewed. I suspect cardiac origin . Patient will need admission for supportive care and further workup Critical Care Note Critical Care Time?: Yes (35 min-critical care time only) Critical care comment: Total critical care time: Approximately 36 minutes Due to a high probability of clinically significant, life threatening deteri oration, the patient required my highest level of preparedness to intervene emergently and I personally spent this critical care time directly and personally managing the patient. This critical care time included obtaining a history; examining the patient; pulse oximetry; ordering and review of studies; arranging urgent treatment with development of a management plan; evaluation of patient's response to treatment; frequent reassessment; and, discussions with other providers. This critical care time was performed to assess and manage the high probability of imminent, life-threatening deterioration that could result in multi-organ joseph lure. It was exclusive of separately billable procedures and treating other patients. Stability Stability form required: No Heart Score Heart Score: Heart Score Response (Comments) Value History Moderate Suspicious 1 EKG Repolarization Disturb 1 Age >65 2 Risk Factors >3 or Hx ASHD 2 Troponin Normal limit 0 Total 6 I personally scribed for AMY PATEL MD ([email or web address]) on 05/02/25 at 01:26. Electronically submitted by Marcell Hewitt ([email or web address]). I personally scribed for AMY PATEL MD ([email or web address]) on 05/02/25 at 02:22. Silva ctronically submitted by Marcell Hewitt ([email or web address]). AMY PATEL MD May 02, 2025 01:26
[2025-05-02 01:53] LABS: Hematocrit 38.9 % (41.0-53.0); Hemoglobin 13.3 g/dL (13.5-17.5); Mean Corpuscular Hemoglobin 27.9 pg (28.0-32.0); Mean Corpuscular Volume 81.6 fL (80.0-100.0); Nucleated Red Blood Cells % 0.0 %
[2025-05-02 02:03] LABS: Alanine Aminotransferase 27 U/L (7-40); Albumin 3.7 g/dL (3.2-4.8); Alkaline Phosphatase 93 U/L (46-116); Anion Gap 10 (5-15); BUN/Creatinine Ratio 8.8 (10.0-20.0); Blood Urea Nitrogen 10 mg/dL (9-23); Calcium 8.9 mg/dL (8.7-10.4); Carbon Dioxide 25 mmol/L (20-31); Magnesium 2.0 mg/dL (1.6-2.6); Sodium 142 mmol/L (136-145); Total Protein 6.6 g/dL (5.7-8.2)
[2025-05-02 02:04] LABS: Bilirubin, Total 0.3 mg/dL (0.2-1.0)
--- NOTE | 2025-05-02 02:04 | DVH ---
CHEST RADIOGRAPH Indication: chest pain Technique: Single frontal view of the chest was obtained COMPARISON: XY CHEST PORTABLE on DOS: 01/14/24, CHEST TWO VIEWS ROUTINE on DOS: 08/05/21, CHEST PORTAB LE on DOS: 08/01/21 FINDINGS: Lines and Tubes: None Lungs: Clear Pleura: No effusion. No pneumothorax. Cardiomediastinal contours: Unremarkable status post median sternotomy. Bones: Unremarkable IMPRESSION: 1. No radiographic evidence of acute cardiopulmonary abnormality.
[2025-05-02 02:09] LABS: INR 1.02 (0.9-1.15); Partial Thromboplastin Time 26.3 SEC (24.5-34.5); Prothrombin Time 10.8 sec (9.3-11.8)
[2025-05-02 02:10] LABS: Chloride 107 mmol/L (98-107); Glucose 136 mg/dL (74-106); Potassium 3.3 mmol/L (3.5-5.1)
[2025-05-02] MEDS: HYDROcodone-ACET 5/325MG TAB PO ONE (05:47)
[2025-05-02] MEDS: POTASSIUM CHL 20 Meq TABLET PO ONE (05:47)
[2025-05-02] MEDS ORDERED: NITROGLYCERIN 0.4 MG SL TAB SL PRN (08:00)
[2025-05-02] MEDS ORDERED: ACETAMINOPHEN 325 MG TAB PO PRN (08:00)
[2025-05-02] MEDS ORDERED: MORPHINE SULFATE INJ 2 MG/ml SYRG IV PRN (08:00)
--- NOTE | 2025-05-02 08:12 | DVHHP2 ---
History of Present Illness Reason for Visit: Chest pain History of Present Illness This is a 64-year-old male with history of hypertension, hyperlipidemia, CABG, PTCA x4,, CAD, COPD not on oxygen and arthritis who presents to ED via EMS for complaint of three day chest pain. Upon evaluating the patient, he is alert and oriented x4 denied chest pain during examination, but does report concerns of midsternal chest pain that has occurred in the last few days. He does complain of increased stress situations but denied any trauma or injury to his chest. He states that the pain has significantly worsened which prompted his visit here in the emergency room. The patient was given aspirin and nitro EN route to the ER. The patient is concerned about his symptoms and would like to be further evaluated and treated. The patient will be admitted under hospitalist care to the telemetry unit for continuous monitoring. The patient denies fever, chills, headache, dizziness, palpitation, shortness of breath, nausea, vomiting, abdominal pain, diarrhea, constipation and other associated symptoms. The plan has been discussed with the patient in which all questions concerns have been addressed. Cardiovascular: CAD, HTN, KS, hyperipidemia Pulmonary: COPD Musculoskeletal: Other (Arthritis) Past Surgical History: CABG Past Surgical History PTCA x4 Family History: None Smoke: No ALCOHOL: none Drugs: None Lives: with Family Domestic Violence: Neg Review of Systems Cardiovascular: Chest Pain Allergies: Coded Allergies: NO KNOWN ALLERGIES (Unverified , 01/24/11) Medications Current Medications Medications Dose Ordered Sig/Terry Route Start Time Stop Time Status Last Admin Dose Admin Aspirin 81 mg DAILY PO 05/02/25 10:00 UNV Clopidogrel Bisulfate 75 mg DAILY PO 05/02/25 10:00 UNV Metoprolol Tartrate 25 mg DAILY PO 05/02/25 10:00 UNV Patient Own Medication 80 mg DAILY PO 05/02/25 10:00 UNV Patient Own Medication 1 tab DAILY PO 05/02/25 10:00 UNV Hydralazine HCl 10 mg Q6HP PRN IV 05/02/25 08:00 UNV Exam Vital Signs Vital Signs Date Time Temp Pulse Resp B/P (MAP) Pulse Ox O2 Delivery O2 Flow Rate FiO2 05/02/25 07:30 171/102 05/02/25 07:15 97.6 72 20 99 97.6 05/02/25 07:15 Room Air 05/02/25 07:15 0 21 General Appearance: Alert, Oriented X3, Cooperative HEENT: Atraumatic, PERRLA, Mucous membr. moist/pink Respiratory: Clear to auscultation, Normal air movement Cardiovascular: Regular rate, Normal S1, Normal S2, No murmurs Abdominal: Normal bowel sounds, No tenderness, No hepatospenomegaly, No masses Extremities: No clubbing, No cyanosis, No edema, Normal pulses, No tenderness/swelling Skin: No rashes, No breakdown Neuro: Normal gait, Normal speech, Strength at 5/5 X4 ext, Normal tone, Sens ation intact, Cranial nerves 3-12 NL Psych/Mental Status: Mental status NL, Mood NL Labs/Xrays Labs Test 05/02/25 04:43 05/02/25 01:28 Range/Units Troponin I High Sensitivity 23 </=54 ng/L White Blood Count 10.3 4.4-10.8 10^3/uL Red Blood Count 4.76 4.5-5.90 10^6/uL Hemoglobin 13.3 L 13.5-17.5 g/dL Hematocrit 38.9 L 41.0-53.0 % Mean Corpuscular Volume 81.6 80.0-100.0 fL Mean Corpuscular Hemoglobin 27.9 L 28.0-32.0 pg Mean Corpuscular Hemoglobin Concent 34.2 32.0-36.0 g/dL Red Cell Distribution Width 15.4 H 11.8-14.3 % Platelet Count 178 140-450 10^3/uL Mean Platelet Volume 8.5 6.9-10.8 fL Neutrophils (%) (Auto) 71.4 37.0-80.0 % Lymphocytes (%) (Auto) 16.6 10.0-50.0 % Monocytes (%) (Auto) 8.8 0.0-12.0 % Eosinophils (%) (Auto) 2.8 0.0-7.0 % Basophils (%) (Auto) 0.4 0.0-2.0 % Neutrophils # (Auto) 7.4 1.6-8.6 10 ^3/uL Lymphocytes # (Auto) 1.7 0.4-5.4 10 ^3/uL Monocytes # (Auto) 0.9 0-1.3 10 ^3/uL Eosinophils # (Auto) 0.3 0-0.8 10 ^3/uL Basophils # (Auto) 0 0-0.2 10 ^3/uL Nucleated Red Blood Cells 0.0 % Prothrombin Time 10.8 9.3-11.8 sec Prothrombin Time INR 1.02 0.9-1.15 Activated Partial Thromboplast Time 26.3 24.5-34.5 SEC Sodium Level 142 136-145 mmol/L Potassium Level 3.3 L 3.5-5.1 mmol/L Chloride Level 107 98-107 mmol/L Carbon Dioxide Level 25 20-31 mmol/L Anion Gap 10 5-15 Blood Urea Nitrogen 10 9-23 mg/dL Creatinine 1.13 0.700-1.30 mg/dL Glomerular Filtration Rate Calc 72 >90 mL/min BUN/Creatinine Ratio 8.8 L 10.0-20.0 Serum Glucose 136 H 74-106 mg/dL Calcium Level 8.9 8.7-10.4 mg/dL Magnesium Level 2.0 1.6-2.6 mg/dL Total Bilirubin 0.3 0.2-1.0 mg/dL Aspartate Amino Transferase (AST) 32 13-40 U/L Alanine Aminotransferase (ALT) 27 7-40 U/L Alkaline Phosphatase 93 46-116 U/L B-Type Natriuretic Peptide 154.90 0-100 pg/mL Total Protein 6.6 5.7-8.2 g/dL Albumin 3.7 3.2-4.8 g/dL ORDERING PHYSICIAN: AMY PATEL MD PROCEDURE(s): CXR1 - CHEST XRAY 1 VIEW REASON: chest pain ORDER NUMBER(s): [id number], ACCESSION NUMBER(s): [id number] CHEST RADIOGRAPH Indication: chest pain Technique: Single frontal view of the chest was obtained COMPARISON: XY CHEST PORTABLE on DOS: 01/14/24, CHEST TWO VIEWS ROUTINE on DOS: 08/05/21, CHEST PORTABLE on DOS: 08/01/21 FINDINGS: Lines and Tubes: None Lungs: Clear Pleura: No effusion. No pneumothorax. Cardiomediastinal contours: Unremarkable status post median sternotomy. Bones: Unremarkable IMPRESSION: 1. No radiographic evidence of acute cardiopulmonary abnormality. ATED BY: DARRELL ENRIQUEZ MD DICTATED DATE/TIME: 05/02/25200 SIGNED BY: DARRELL ENRIQUEZ MD SIGNED DATE/TIME: 05/02/25200 SEPSIS Sepsis Screen Date sepsis recognized/suspect: May 02, 2025 Time Sepsis recognized/suspect: 717 Recent Procedure: No On Antibiotic Therapy: No Respiratory Rate >20: No Heart Rate >90: No Temp<36 C (96.8 F) or >38.3 C: No SBP <90 or MAP <65 mmHG: No New Acute Mental Status Change: No Is the patient on CPAP, BIPAP,: No Physician Orders Electrocardigram (05/02/25 01:16) Chest Xray 1 View (05/02/25 01:16) Aspirin Enteric Coated Tablet (Ecotrin E (05/02/25 10:00) Clopidogrel Bisulfate (Plavix) (05/02/25 10:00) Metoprolol Tartrate Tablet (Lopressor Ta (05/02/25 10:00) (Nf) Atorvastatin Calcium (05/02/25 10:00) (Nf) Losartan Potassium & Hydrochlo (Los (05/02/25 10:00) Hydralazine Injection (Apresoline Inject (05/02/25 08:00) Admit (05/02/25 07:59) 2 Gm Sodium Diet (05/02/25 Breakfast) Hydrocodone-Acet 5/325mg Tab ([place] 5/32 (05/02/25 08:00) Complete Blood Count (05/03/25 04:00) Comprehensive Metabolic Panel (05/03/25 04:00) Condition: Fair (05/02/25 07:59) Acetaminophen Tablet (Tylenol Tablet) (05/02/25 08:00) BRP (05/02/25 07:59) Nitroglycerin Sublingual (Ntrostat Subli (05/02/25 08:00) Morphine Sulfate Injection (05/02/25 08:00) Stat Ekg For Chest Pain (05/02/25 07:59) Notify Of Changes From Base (05/02/25 07:59) Countersinker For 24 Hours (05/02/25 07:59) Emergency Dysrhythmia Protocol (05/02/25 07:59) Rhythm Strips Once Every Shift (05/02/25 07:59) Oxygen By Nasal Cannula (05/02/25 07:59) Vital Signs Date Time Temp Pulse Resp B/P (MAP) Pulse Ox O2 Delivery O2 Flow Rate FiO2 05/02/25 07:30 171/102 05/02/25 07:15 97.6 72 20 171/102 (125) 99 97.6 05/02/25 07:15 72 20 99 Room Air 05/02/25 07:15 72 20 99 Room Air* 0 21 05/02/25 02:04 71 05/02/25 01:17 73 05/02/25 01:06 98.4 77 20 181/98 99 98.4 Laboratory Tests Test 05/02/25 01:28 White Blood Count 10.3 10^3/uL (4.4-10.8) Medications Medications Dose Ordered Sig/Terry Route Start Time Stop Time Status Last Admin Dose Admin Acetaminophen/ Hydrocodone Bitart 1 tab ONCE ONCE PO 05/02/25 04:45 05/02/25 04:46 DC 05/02/25 05:47 1 TAB Amlodipine Besylate 10 mg ONCE ONCE PO 05/02/25 07:30 05/02/25 07:31 DC 05/02/25 07:30 10 MG Aspirin 162 mg ONCE ONCE PO 05/02/25 04:45 05/02/25 04:46 DC 05/02/25 05:47 162 MG Potassium Chloride 20 meq ONCE ONCE PO 05/02/25 03:00 05/02/25 03:01 DC 05/02/25 05:47 20 MEQ Assessment/Plan Assessment/Plan Chest pain--patient admitted via EMS for complaint of three day chest pain Patient reports significant worsened in the past few days that prompted checkup Patient was given aspirin and nitro EN route to the ER History of CABG, cardiac stent x4, KS, COPD, CAD, hypertension and hyperlipidemia Patient is currently taking Plavix and antihypertensive agents Denies illicit drug use Admits to recent life stressors Admit to telemetry unit for continuous monitoring ACS protocol Reviewed CBC which is normal Reviewed BMP potassium 3.3 Reviewed BNP 154 Reviewed cardiac enzyme negative x3 Coags within normal limits Reviewed chest x-ray which is normal Echocardiogram pending We will consider bank analyst for evaluation and recommendation-not needed at this time Uncontrolled hypertension BP 181/98 Continue antihypertensive agent IV hydralazine 10 mg Q 6 hours for SBP greater than 150 mmHg Continue to monitor Hypokalemia potassium 3.3 Ordered replacement Add on magnesium level pending Continue to monitor and replace electrolytes as needed Hyperlipidemia Continue atorvastatin as prescribed COPD controlled Currently denies shortness of breath not on oxygen Continue to monitor Albuterol p.r.n. Reconcile home meds Labs in a.m. DVT prophylaxis not indicated patient is ambulatory PUD prophylaxis not indicated no history of GERD Discussed plan of care with the patient in which all questions concerns have been addressed Plan discussed with: Patient My Orders Orders - KHANH HEATH Procedure Category Date Status Time Aspirin Enteric PHA 05/02/25 Logged Coated Tablet 10:00 Clopidogrel Bisulfate PHA 05/02/25 Logged (Plavix) 10:00 Metoprolol Tartrate PHA 05/02/25 Logged Tablet (Lopressor Ta 10:00 (Nf) Atorvastatin PHA 05/02/25 Logged Calcium 10:00 (Nf) Losartan PHA 05/02/25 Logged Potassium & Hydrochlo 10:00 Hydralazine Injection [facility] 05/02/25 Logged (Apresoline Inject 08:00 Admit ADMIT 05/02/25 Verified 07:59 2 Gm Sodium Diet DIET 05/02/25 Verified Breakfast Hydrocodone-Acet [facility] 05/02/25 Verified 5/325mg Tab ([place] 08:00 Complete Blood Count LAB 05/03/25 Verified 04:00 Comprehensive LAB 05/03/25 Verified Metabolic Panel 04:00 Condition: Fair [facility] 05/02/25 Verified 07:59 Acetaminophen Tablet [facility] 05/02/25 Verified (Tylenol Tablet) 08:00 BRP [facility] 05/02/25 Verified 07:59 Nitroglycerin [facility] 05/02/25 Verified Sublingual (Ntrostat 08:00 Morphine Sulfate [facility] 05/02/25 Verified Injection 08:00 Stat Ekg For Chest [facility] 05/02/25 Verified Pain 07:59 Notify Md Of Changes [facility] 05/02/25 Verified From Base 07:59 Countersinker For [facility] 05/02/25 Verified 24 Hours 07:59 Emergency Dysrhythmia [facility] 05/02/25 Verified Protocol 07:59 Rhythm Strips Once [facility] 05/02/25 Verified Every Shift 07:59 Oxygen By Nasal RT 05/02/25 Verified Cannula 07:59 Date of Service: May 02, 2025 Billing Provider: KHANH HEATH Common Visit Codes: [id number] INP/OBS CARE (HIGH) KHANH HEATH UNLEAVENED DOUGH MIXER May 02, 2025 08:12
[2025-05-02] MEDS ORDERED: ALBUTEROL SULF 2.5 MG/0.5ML(0.5%) NEB SOLN NEB PRN (08:15)
[2025-05-02] MEDS: ASPirin-EC 81 mg tab PO SCH (10:27)
[2025-05-02] MEDS: hydroCHLOROthiazide 25 MG TAB PO SCH (10:28)
[2025-05-02] MEDS: LOSARTAN POTASSIUM 50 MG TAB PO SCH (10:28)
[2025-05-02] MEDS: CLOPIDOGREL BISULFATE 75 MG TAB PO SCH (10:29)
[2025-05-02] MEDS: METOPROLOL TARTRATE 25 MG TAB PO SCH (10:29)
[2025-05-02] MEDS: hydrALAZINE HCL 20 MG/ML VL IV PRN (17:22)
[2025-05-02] MEDS: HYDROcodone-ACET 5/325MG TAB PO PRN (17:26)
[2025-05-02] MEDS: ATORVASTATIN 20 MG TAB PO SCH (21:09)
[2025-05-03] VITALS (10 sets, daily range): BP systolic 116–152; BP diastolic 73–97; PULSE 67–97; RESP 14–18; TEMP 97.4–98.5; O2SAT 98–99
[2025-05-03 06:07] LABS: Hematocrit 43.9 % (41.0-53.0); Hemoglobin 14.8 g/dL (13.5-17.5); Mean Corpuscular Hemoglobin 27.4 pg (28.0-32.0); Mean Corpuscular Volume 81.5 fL (80.0-100.0); Nucleated Red Blood Cells % 0.1 %
[2025-05-03 06:27] LABS: Alanine Aminotransferase 23 U/L (7-40); Albumin 3.8 g/dL (3.2-4.8); Alkaline Phosphatase 94 U/L (46-116); Anion Gap 9 (5-15); BUN/Creatinine Ratio 10.3 (10.0-20.0); Blood Urea Nitrogen 11 mg/dL (9-23); Calcium 9.3 mg/dL (8.7-10.4); Carbon Dioxide 26 mmol/L (20-31); Chloride 104 mmol/L (98-107); Glucose 102 mg/dL (74-106); Potassium 3.6 mmol/L (3.5-5.1); Sodium 139 mmol/L (136-145); Total Protein 6.9 g/dL (5.7-8.2)
[2025-05-03 06:28] LABS: Bilirubin, Total 0.4 mg/dL (0.2-1.0)
--- NOTE | 2025-05-03 11:20 | DVHPN2 ---
Subjective The patient is seen and examined at bedside. Still have a little bit of chest discomfort but no pain. Reviewed: Care Plan, H&P, Labs, Medications, Previous Orders, Radiology Changes from previous H/P or p: No Changes Cardiovascular: Chest Pain Objective Vitals Vital Signs Date Time Temp Pulse Resp B/P (MAP) Pulse Ox O2 Delivery O2 Flow Rate FiO2 05/03/25 10:28 146/87 05/03/25 10:27 87 05/03/25 09:30 97.7 14 99 97.7 05/03/25 08:13 Room Air 05/03/25 08:13 0 21 Intake/Output Intake and Output 05/03/25 07:00 Intake Total 1270 ml Balance 1270 ml Intake Oral 1270 ml # Voids 7 # Bowel Movements 1 General Appearance: Alert, Oriented X3, Cooperative, No acute distress HEENT: Atraumatic, PERRLA, EOMI, Mucous membr. moist/pink Neck: Supple Lungs: Clear to auscultation, Normal air movement Cardiovascular: Regular rate, Normal S1, Normal S2, No murmurs, Gallops, Rubs Abdomen: Normal bowel sounds, Soft, No tenderness, No hepatospenomegaly Neuro: Cranial nerves 3-12 NL Psych/Mental Status: Mental status NL Medications Current Medications Medications Dose Ordered Sig/Terry Route Start Time Stop Time Status Last Admin Dose Admin Aspirin 81 mg DAILY PO 05/02/25 10:00 05/03/25 10:27 81 MG Clopidogrel Bisulfate 75 mg DAILY PO 05/02/25 10:00 05/03/25 10:28 75 MG Metoprolol Tartrate 25 mg DAILY PO 05/02/25 10:00 05/03/25 10:27 25 MG Atorvastatin Calcium 40 mg HS PO 05/02/25 22:00 05/02/25 21:09 40 MG Losartan Potassium 100 mg DAILY PO 05/02/25 10:00 05/03/25 10:28 100 MG Hydralazine HCl 10 mg Q6HP PRN IV 05/02/25 08:00 05/02/25 17:22 10 MG Acetaminophen/ Hydrocodone Bitart 1 tab Q4HP PRN PO 05/02/25 08:00 05/03/25 10:27 1 TAB Acetaminophen 650 mg Q6HP PRN PO 05/02/25 08:00 Nitroglycerin 0.4 mg Q5MINP PRN SL 05/02/25 08:00 Morphine Sulfate 2 mg Q30M PRN IV 05/02/25 08:00 Albuterol 2.5 mg Q2HPRN PRN NEB 05/02/25 08:15 Hydrochlorothiazide 12.5 mg DAILY PO 05/02/25 10:00 05/03/25 10:28 12.5 MG Laboratory Results Laboratory Tests 05/03/25 05:03 Chemistry Test 05/03/25 05:03 Albumin 3.8 g/dL (3.2-4.8) Calcium Level 9.3 mg/dL (8.7-10.4) Total Protein 6.9 g/dL (5.7-8.2) LFT Test 05/03/25 05:03 Alanine Aminotransferase (ALT) 23 U/L (7-40) Alkaline Phosphatase 94 U/L (46-116) Aspartate Amino Transferase (AST) 22 U/L (13-40) Total Bilirubin 0.4 mg/dL (0.2-1.0) Labs and/or images reviewed: Labs reviewed by me Assessment/Plan Assessment/Plan Chest pain--patient admitted via EMS for complaint of three day chest pain Patient reports significant worsened in the past few days that prompted checkup Patient was given aspirin and nitro EN route to the ER History of CABG, cardiac stent x4, [place], COPD, CAD, hypertension and hyperlipidemia Patient is currently taking Plavix and antihypertensive agents Denies illicit drug use Admits to recent life stressors Admit to telemetry unit for continuous monitoring ACS protocol Reviewed CBC which is normal Reviewed BMP potassium 3.3 Reviewed BNP 154 Reviewed cardiac enzyme negative x3 Coags within normal limits Reviewed chest x-ray which is normal Echocardiogram pending We will consider signal technician for evaluation and recommendation-not needed at this time Uncontrolled hypertension BP 181/98 Continue antihypertensive agent IV hydralazine 10 mg Q 6 hours for SBP greater than 150 mmHg Continue to monitor Hypokalemia potassium 3.3 Ordered replacement Add on magnesium level pending Continue to monitor and replace electrolytes as needed Hyperlipidemia Continue atorvastatin as prescribed COPD controlled Currently denies shortness of breath not on oxygen Continue to monitor Albuterol p.r.n. Reconcile home meds Labs in a.m. DVT prophylaxis not indicated patient is ambulatory PUD prophylaxis not indicated no history of GERD Continuing current management. Waiting for 2D echo. Plan discussed with: Patient Date of Service: May 03, 2025 Billing Provider: VIKAS SERNA MD Common Visit Codes: [id number] INP/OBS CARE(HIGH) VIKAS SERNA MD May 03, 2025 11:20
--- NOTE | 2025-05-03 14:40 | DVH ---
EXAM: US BILAT LOWER DVT Clinical History: R/O DVT Comparison: None Technique: Duplex Doppler evaluation of the deep venous systems of both lower extremities from the common femora l veins to the popliteal veins including color Doppler and spectral/pulsed waveform analysis was perf ormed. Findings: No visible intraluminal venous thrombus. No evidence of incompressibility or abnormal color or spectr al Doppler flow visualized in the deep bilateral lower extremity veins. Proximal greater saphenous ve ins are grossly unremarkable. Impression: 1. No sonographic evidence of deep venous thrombosis throughout the bilateral lower extremities from the popliteal veins to the common femoral veins.
[2025-05-03] MEDS: FUROSEMIDE 40 MG/4 ML VIAL IV ONE (14:44)
--- NOTE | 2025-05-03 17:49 | DVHSR ---
APPROVED REPORT EXAM: Two-dimensional and M-mode echocardiogram with Doppler and color Doppler. Blood Pressure: 171/102 mmHg INDICATION Chest Pain Surgery/Intervention CABG: RISK FACTORS Height: 5'5", Weight: 138 DIMENSIONS LVDd3.8 (3.8-5.7cm)LA (2D)3.2 (1.9-4.0cm)Aortic Root3.0 (2.0-3.7cm) LVDs3.2 (2.5-4.0cm)LA (MM) (1.9-4.0cm)Aortic Cusp Exc1.5 (1.5-2.0cm) EF (%) 38.0 (55-70%)Rt. Atrium4.3 (1.9-4.0cm)Asc. Aorta cm IVSd1.0 (0.7-1.1cm)RV (D) (1.8-2.4cm) PWd1.0 (0.7-1.1cm) Mitral Valve MitralMitral Stenosis E wave0.88m/sMV Mean GR.mmHg A wave0.51m/sMV Peak GR.mmHg E/A ratio1.72D MVAcm2 DECEL [id number] 1/2 Timems Aortic Valve Aortic ValveAortic Stenosis V10.56m/Alba Mean GR.2mmHg V20.86m/Alba Peak GR.3mmHg LVOT Diameter1.9 (1.8-2.4cm)Doppler AVA1.85cm2 Pulmonic Valve V20.54m/s Tricuspid Valve TR Velocity2.24m/s [id number] Other Information Technically limited study due to body habitus and CABG. Conclusion DILATED LV AND IS HYPOKINETIC LV SYSTOLIC DYSFUNCTION LV EF IS 38% AND IS MODERATELY REDUCED NORMAL VALVES NO EFFUSION
[2025-05-04] VITALS (7 sets, daily range): BP systolic 109–137; BP diastolic 71–95; PULSE 72–109; RESP 17–18; TEMP 97.1–98.3; O2SAT 96–99
--- NOTE | 2025-05-04 07:18 | ECG ---
[facility] Test Date: 2025-05-02 Test Time: 01:17:46 Pat Name: OLGA ESPARZA Department: Room: 0218T B Gender: M Fish Header: MARU : 1960 Requested By: AMY PATEL Order Number: [id number] Reading MD: Ezequiel Aburto Measurements Intervals Burket Rate: 73 P: 69 CT: 181 QRS: 42 QRSD: 73 T: 147 QT: 601 QTc: 663 Interpretive Statements Sinus rhythm Nonspecific T abnrm, anterolateral leads Prolonged QT interval Electronically Signed On 05-04-2025 13:35:28 PDT by Ezequiel Aburto Please click the below link to view image of tracing.
[2025-05-04] MEDS: FUROSEMIDE 40 MG/4 ML VIAL IV SCH (10:14)
[2025-05-04] MEDS ORDERED: FURO1TAB31 PO (12:55)
--- NOTE | 2025-05-04 12:56 | DVHDS2 ---
Discharge Summary Date of Admission May 02, 2025 at 07:59 Date of Discharge: May 04, 2025 Admitting Diagnosis Chest pain Hypokalemia Hyperlipidemia COPD controlled Hypertension uncontrolled Congestive heart failure Labs/Diagnostic Data: Laboratory Results Test 05/03/25 05:03 05/02/25 04:43 05/02/25 01:28 White Blood Count 8.9 10^3/uL (4.4-10.8) Red Blood Count 5.39 10^6/uL (4.5-5.90) Hemoglobin 14.8 g/dL (13.5-17.5) Hematocrit 43.9 % (41.0-53.0) Mean Corpuscular Volume 81.5 fL (80.0-100.0) Mean Corpuscular Hemoglobin 27.4 pg (28.0-32.0) Mean Corpuscular Hemoglobin Concent 33.7 g/dL (32.0-36.0) Red Cell Distribution Width 15.4 % (11.8-14.3) Platelet Count 196 10^3/uL (140-450) Mean Platelet Volume 8.6 fL (6.9-10.8) Neutrophils (%) (Auto) 65.1 % (37.0-80.0) Lymphocytes (%) (Auto) 22.5 % (10.0-50.0) Monocytes (%) (Auto) 8.5 % (0.0-12.0) Eosinophils (%) (Auto) 3.5 % (0.0-7.0) Basophils (%) (Auto) 0.4 % (0.0-2.0) Neutrophils # (Auto) 5.8 10 ^3/uL (1.6-8.6) Lymphocytes # (Auto) 2.0 10 ^3/uL (0.4-5.4) Monocytes # (Auto) 0.8 10 ^3/uL (0-1.3) Eosinophils # (Auto) 0.3 10 ^3/uL (0-0.8) Basophils # (Auto) 0 10 ^3/uL (0-0.2) Nucleated Red Blood Cells 0.1 % Sodium Level 139 mmol/L (136-145) Potassium Level 3.6 mmol/L (3.5-5.1) Chloride Level 104 mmol/L (98-107) Carbon Dioxide Level 26 mmol/L (20-31) Anion Gap 9 (5-15) Blood Urea Nitrogen 11 mg/dL (9-23) Creatinine 1.07 mg/dL (0.700-1.30) Glomerular Filtration Rate Calc 77 mL/min (>90) BUN/Creatinine Ratio 10.3 (10.0-20.0) Serum Glucose 102 mg/dL (74-106) Calcium Level 9.3 mg/dL (8.7-10.4) Total Bilirubin 0.4 mg/dL (0.2-1.0) Aspartate Amino Transferase (AST) 22 U/L (13-40) Alanine Aminotransferase (ALT) 23 U/L (7-40) Alkaline Phosphatase 94 U/L (46-116) Total Protein 6.9 g/dL (5.7-8.2) Albumin 3.8 g/dL (3.2-4.8) Magnesium Level 2.1 mg/dL (1.6-2.6) Troponin I High Sensitivity 23 ng/L (</=54) Prothrombin Time 10.8 sec (9.3-11.8) Prothrombin Time INR 1.02 (0.9-1.15) Activated Partial Thromboplast Time 26.3 SEC (24.5-34.5) B-Type Natriuretic Peptide 154.90 pg/mL (0-100) Other Laboratory Tests 05/03/25 05:03 Brief Hx & Hospital Course: This is a 64 years old male with past medical history of hypertension, hyperlipidemia, coronary artery disease status post CABG , PTCA x4, COPD not on home oxygen, osteoarthritis come to emergency department because three day chest pain. The patient's troponin level was negative. Chest x-ray showed no acute change. The patient was found to have congestive heart failure exacerbation. The patient was given Lasix 40 mg IV b.i.d.. Echo showed: Dilated LV and hypokinetic LV systolic dysfunction, LVEF 38% moderate reduced, normal valves. No effusion. The patient was given hydralazine IV p.r.n. for systolic greater than 160. The patient also restarted on his home medication. Today the patient feels better. Less shortness for breath. No chest pain. I am discharge the patient home. Advised the patient to follow up with primary care physician 1-2 weeks. Follow up with qa internship per schedule. Advised the patient to eat low-salt diet and no soda. Activity as tolerated. Diet per home diet. Physical exam: HEENT: Normocephalic atraumatic pupils equal react to light and accommodation. Extraocular muscles intact, conjunctiva pink, oropharynx moist, no thrush, no exudate. Lymphatic: No lymphadenopathy Cardiovascular exam: S1, S2 was heard. No murmurs, rubs, gallops Lung: Clear on auscultation bilaterally, no wheeze, rale, rhonchi. GI: Abdominal soft, nondistended, nontenderness, positive bowel sounds. Extremity: No crepitus, cyanosis, edema. Pedal pulses present bilateral. Full range of motion. Skin: Normal turgor, no rash. Psych: Alert, oriented x3. Neurology: No focal deficits, cranial nerve II to XII grossly intact. This medical document was created using an electronic medical record system with [employer] dictation system. Although this document has been carefully reviewed, there may still be some phonetic and typographical errors. These areas are purely typographical due to imperfections of the software programs, and do not reflect any compromise in the patient's medical care. Condition at Discharge: Stable Final Diagnosis/Problems List chf exacerbation Chest pain Hypokalemia Hyperlipidemia COPD controlled Hypertension uncontrolled Discharge Disposition: Home Discharge Instruct/Medications Diet: Cardiac 2g Na,low cholest Activity: No Restrictions, As Tolerated Follow Up/Referral: pcp 1-2 weeks Medications: see med list Scheduled Aspirin (Aspirin Low Dose), 81 MG PO DAILY Atorvastatin Calcium (Atorvastatin Calcium), 80 MG PO DAILY Clopidogrel Bisulfate (Plavix), 75 MG PO DAILY Furosemide (Lasix), 40 MG PO DAILY Losartan Potassium & Hydrochlo (Losartan Potassium/Hydroc), 1 TAB PO DAILY Metoprolol Tartrate (Lopressor), 1 TAB PO DAILY Discharge Statement: "Patient was advised to return to the ER or call 911 if any headaches, dizziness, shortness of breath, chest pain, abdominal pain, bleeding, fevers, or worsening of medical condition. Patient was counseled about treatment plan, medications, possible side effects, patientverbalized understanding. All questions were answered to the best of my ability. This discharge took greater then 30 minutes in planning, reviewing documentation, counseling the patient, and discussing with other team members." ASSESSMENT ASSESSMENT Assessment chf exacerbation Date of Service: May 04, 2025 Billing Provider: VIKAS SERNA MD Common Visit Codes: [id number] DISCH DAY >30min VIKAS SERNA MD May 04, 2025 12:56
--- NOTE | 2025-05-04 14:11 | DVHCONRES ---
Date Seen: May 04, 2025 Resident Creating Document: JEROME CUMMINS RESIDENT Referring Physician Vikas Serna MD Reason for Consultation chest pain Family History: Cardiovascular disease G8 MOTHER Family history: Arthritis G8 FATHER, Onset:50's - 60 Family history: Osteoporosis G8 MOTHER, Onset:50's - 60 Hypertension G8 MOTHER Allergies: Coded Allergies: NO KNOWN ALLERGIES (Unverified , 01/24/11) Home Meds Active Scripts Furosemide (Lasix) 40 Mg Tab, 40 MG PO DAILY for 20 Days, #20 TAB Prov:VIKAS SERNA MD 05/04/25 Losartan Potassium & Hydrochlo (Losartan Potassium/Hydroc) 1 Tab Tab, 1 TAB PO DAILY for 90 Days, #90 TAB 2 Refills [Losartan/hydrochlorothiazide 100/12.5 mg] Prov:LORICECE S DO 01/16/24 Metoprolol Tartrate (Lopressor) 25 Mg Tb, 1 TAB PO DAILY for 90 Days, #90 TAB 2 Refills Prov:CROWMOLLY RODRIGUEZI S DO 01/16/24 Clopidogrel Bisulfate (Plavix) 75 Mg Tab, 75 MG PO DAILY for 90 Days, #90 TAB 3 Refills Prov:CECE SANDOVAL S DO 01/16/24 Atorvastatin Calcium (ATORVASTATIN CALCIUM) 80 Mg Tab, 80 MG PO DAILY for 90 Days, #90 TAB 2 Refills Prov:CECE SANDOVAL S DO 01/16/24 Aspirin (Aspirin Low Dose) 81 Mg Tab, 81 MG PO DAILY for 90 Days, #90 TAB 2 Refills Prov:CECE SANDOVAL DO 01/16/24 Current Medications Current Medications Medications (Trade) Dose Ordered Sig/Terry Route PRN Reason Start Time Stop Time Status Last Admin Furosemide (Lasix Injection) 40 mg DAILY IV 05/04/25 10:00 05/04/25 10:14 Vital Signs Vital Signs Date Time Temp Pulse Resp B/P (MAP) Pulse Ox O2 Delivery O2 Flow Rate FiO2 05/04/25 12:53 98.3 82 18 131/94 (106) 97 98.3 05/04/25 08:00 Room Air* 0 21 Labs/Diagnostic Data Labs Test 05/03/25 05:03 05/02/25 04:43 05/02/25 01:28 Range/Units White Blood Count 8.9 4.4-10.8 10^3/uL Red Blood Count 5.39 4.5-5.90 10^6/uL Hemoglobin 14.8 13.5-17.5 g/dL Hematocrit 43.9 # 41.0-53.0 % Mean Corpuscular Volume 81.5 80.0-100.0 fL Mean Corpuscular Hemoglobin 27.4 L 28.0-32.0 pg Mean Corpuscular Hemoglobin Concent 33.7 32.0-36.0 g/dL Red Cell Distribution Width 15.4 H 11.8-14.3 % Platelet Count 196 140-450 10^3/uL Mean Platelet Volume 8.6 6.9-10.8 fL Neutrophils (%) (Auto) 65.1 37.0-80.0 % Lymphocytes (%) (Auto) 22.5 10.0-50.0 % Monocytes (%) (Auto) 8.5 0.0-12.0 % Eosinophils (%) (Auto) 3.5 0.0-7.0 % Basophils (%) (Auto) 0.4 0.0-2.0 % Neutrophils # (Auto) 5.8 1.6-8.6 10 ^3/uL Lymphocytes # (Auto) 2.0 0.4-5.4 10 ^3/uL Monocytes # (Auto) 0.8 0-1.3 10 ^3/uL Eosinophils # (Auto) 0.3 0-0.8 10 ^3/uL Basophils # (Auto) 0 0-0.2 10 ^3/uL Nucleated Red Blood Cells 0.1 % Sodium Level 139 136-145 mmol/L Potassium Level 3.6 3.5-5.1 mmol/L Chloride Level 104 98-107 mmol/L Carbon Dioxide Level 26 20-31 mmol/L Anion Gap 9 5-15 Blood Urea Nitrogen 11 9-23 mg/dL Creatinine 1.07 0.700-1.30 mg/dL Glomerular Filtration Rate Calc 77 >90 mL/min BUN/Creatinine Ratio 10.3 10.0-20.0 Serum Glucose 102 74-106 mg/dL Calcium Level 9.3 8.7-10.4 mg/dL Total Bilirubin 0.4 0.2-1.0 mg/dL Aspartate Amino Transferase (AST) 22 13-40 U/L Alanine Aminotransferase (ALT) 23 7-40 U/L Alkaline Phosphatase 94 46-116 U/L Total Protein 6.9 5.7-8.2 g/dL Albumin 3.8 3.2-4.8 g/dL Magnesium Level 2.1 1.6-2.6 mg/dL Troponin I High Sensitivity 23 </=54 ng/L Prothrombin Time 10.8 9.3-11.8 sec Prothrombin Time INR 1.02 0.9-1.15 Activated Partial Thromboplast Time 26.3 24.5-34.5 SEC B-Type Natriuretic Peptide 154.90 0-100 pg/mL Visit Coding Cardiology RES Date of Service: May 04, 2025 Billing Provider: EFRAÍN MUNGUIA MD Cardiology Common Codes: [id number] INP/OBS CARE (High) JEROME CUMMINS RESIDENT May 04, 2025 14:11
--- NOTE | 2025-05-07 13:19 | ECG ---
[facility] Test Date: 2025-05-02 Test Time: 02:04:19 Pat Name: OLGA ESPARZA Department: Room: 0218T B Gender: M Supervisor Graphite: MARU : 1960 Requested By: AMY PATEL Order Number: [id number] Reading MD: Measurements Intervals Rhodelia Rate: 71 P: 62 NE: 171 QRS: 37 QRSD: 77 T: 125 QT: 402 QTc: 437 Interpretive Statements Sinus rhythm Nonspecific T abnrm, anterolateral leads Please click the below link to view image of tracing.
== END 2025-05-04 14:50 | disposition home or self-care (01) | DRG 199 ==
LOC: EDBD 01:06 → ER 01:06 → OVERFLOW 07:59 → TELE-CENTR 09:24
PROVIDERS: ADMIT Internal Medicine; ATTEND Internal Medicine
DX: I16.0 Hypertensive urgency (principal); I50.23 Acute on chronic systolic (congestive) heart failure; I24.9 Acute ischemic heart disease, unspecified; I11.0 Hypertensive heart disease with heart failure; Z95.1 Presence of aortocoronary bypass graft; E78.5 Hyperlipidemia, unspecified; J44.9 Chronic obstructive pulmonary disease, unspecified; E87.6 Hypokalemia; I25.10 Atherosclerotic heart disease of native coronary artery without angina pectoris; Z79.82 Long term (current) use of aspirin; Z79.899 Other long term (current) drug therapy; Z95.5 Presence of coronary angioplasty implant and graft
CPT/HCPCS: 36415; 71045; 80053; 83735; 83880; 84484; 85025; 85610; 85730; 93005; 93306; 93970; 99291; G0378

== ENCOUNTER 2025-06-22 10:21 | Inpatient (IN) | payer MEDICARE, MEDICAID ==
[~2025-06-22] VITALS: Ht 172.7 cm; Wt 84.2 kg
[~2025-06-22 10:21] MED LIST changes: +ATOR40TA52 PO; -DICL1GEL59 EX; +FURO1TAB31 PO; -LIDO5CRE18 EX
--- NOTE | 2025-06-22 11:17 | ED.PDOC ---
History of Present Illness HPI Comments 64 year old male with PMHx arthritis, CAD, COPD, HLD, HTN, IL presents to the ED with a chief complaint of bilateral arm pain onset 4 days. Patient states he is currently experiencing bilateral arm pain began 4 days ago, chest discomfort and shortness of breath began this morning. Patient states he was in [place] 1 week ago, had an [place], had 5th stent placed. He is currently in the process of moving to [place], has no PCP. Denies fever, chills, dizziness, nausea, vomiting, diarrhea, head injury, fall. No other symptoms or modifying factors present at this time. Chief Complaint: Upper Extremity Time Seen by MD: 11:05 Primary Care Provider: UNKNOWN Reviewed Notes: Medications, Allergies Allergies: Coded Allergies: NO KNOWN ALLERGIES (Unverified , 01/24/11) Home Meds Active Scripts Furosemide (Lasix) 40 Mg Tab, 40 MG PO DAILY for 20 Days, #20 TAB Prov:VIKAS SERNA MD 05/04/25 Losartan Potassium & Hydrochlo (Losartan Potassium/Hydroc) 1 Tab Tab, 1 TAB PO DAILY for 90 Days, #90 TAB 2 Refills [Losartan/hydrochlorothiazide 100/12.5 mg] Prov:CECE SANDOVAL DO 01/16/24 Metoprolol Tartrate (Lopressor) 25 Mg Tb, 1 TAB PO DAILY for 90 Days, #90 TAB 2 Refills Prov:CECE SANDOVAL DO 01/16/24 Clopidogrel Bisulfate (Plavix) 75 Mg Tab, 75 MG PO DAILY for 90 Days, #90 TAB 3 Refills Prov:CECE SANDOVAL DO 01/16/24 Atorvastatin Calcium (ATORVASTATIN CALCIUM) 80 Mg Tab, 80 MG PO DAILY for 90 Days, #90 TAB 2 Refills Prov:CECE SANDOVAL DO 01/16/24 Aspirin (Aspirin Low Dose) 81 Mg Tab, 81 MG PO DAILY for 90 Days, #90 TAB 2 Refills Prov:CECE SANDOVAL DO 01/16/24 Information Source: Patient Mode of Arrival: Ambulatory Severity: Moderate Timing: Days Duration: Since onset Prehospital treatment: None Past Medical History PAST MEDICAL HISTORY: Arthritis, CAD, COPD, High Lipids, HTN, [place] Surgical History: CABG, PTCA Family History Family History: No family hx of HTN Social History Smoker: Non-Smoker Alcohol: Denies ETOH Use Drugs: Denies Drug Use Lives In: Home Constitutional: denies: chills, diaphoresis, fatigue, fever, malaise, sweats, weakness, others EENTM: denies: blurred vision, double vision, ear bleeding, ear discharge, ear drainage, ear pain, ear ringing, eye pain, eye redness, hearing loss, mouth pain, mouth swelling, nasal discharge, nose bleeding, nose congestion, nose pain, photophobia, tearing, throat pain, throat swelling, voice changes, others Respiratory: reports: shortness of breath; denies: cough, hemoptysis, orthopnea, SOB at rest, SOB with excertion, stridor, wheezing, others Cardiovascular: reports: chest pain; denies: dizzy spells, diaphoresis, Dyspnea on exertion, edema, irregular heart beat, left arm pain, lightheadedness, palpitations, PND, syncope, others Gastrointestinal: denies: abdomen distended, abdominal pain, blood streaked bowels, constipated, diarrhea, dysphagia, difficulty swallowing, hematemesis, melena, nausea, poor appetite, poor fluid intake, rectal bleeding, rectal pain, vomiting, others Genitourinary: denies: burning, dysuria, flank pain, frequency, hematuria, incontinence, penile discharge, penile sore, pain, testicle pain, testicle swelling, urgency, others Neurological: denies: dizziness, fainting, headache, left sided numbness, left sided weakness, numbness, paresthesia, pre-existing deficit, right sided numbness, right sided weakness, seizure, speech problems, tingling, tremors, weakness, others Musculoskeletal: reports: others (bilateral arm pain); denies: back pain, gout, joint pain, joint swelling, muscle pain, muscle stiffness, neck pain Integumetry: denies: bruises, change in color, change in hair/nails, dryness, laceration, lesions, lumps, rash, wounds, others Allergic/Immunocompromised: denies: Difficulty Healing, Frequent Infections, Hives, Itching, others Hematologic/Lymphatic: denies: anemia, blood clots, easy bleeding, easy bruising, swollen glands, others Endocrine: denies: excessive hunger, excessive sweating, excessive thirst, excessive urination, flushing, intolerance to cold, intolerance to heat, unexplained weight gain, unexplained weight loss, others Psychiatric: denies: anxiety, bipolar disorder, depression, hopeless, panic disorder, schizophrenia, sleepless, suicidal, others All Other Systems: Reviewed and Negative Physical Exam General Appearance: Moderate Distress, Normal HEENT: Normal ENT Inspection, Pharynx Normal, TMs Normal Neck: Full Range of Motion, Non-Tender, Normal, Normal Inspection Respiratory: Chest Non-Tender, Lungs Clear, No Accessory Muscle Use, No Respiratory Distress, Normal Breath Sounds Cardiovascular: No Edema, No JVD, No Murmur, No Gallop, Normal Peripheral Pulses, Regular Rate/Rhythm Breast Exam: Deferred Gastrointestinal: No Organomegaly, Non Tender, No Pulsatile Mass, Normal Bowel Sounds, Soft Genitalia: Deferred Pelvic: Deferred Rectal: Deferred Extremities: No calf tenderness, Normal capillary refill, Normal inspection, Normal range of motion, Non-tender, No pedal edema Musculoskeletal : Apperance: Normal Neurologic: Alert, trading specialist II-XII nml as Tested, No Motor Deficits, Normal Affect, Normal Mood, No Sensory Deficits Cerebellar Function: Normal Reflexes: Normal Skin: Dry, Normal Color, Warm Peripheral Pulses: 3+ Radial (R), 3+ Radial (L) Lymphatic: No Adenopathy Was a procedure done? Was a procedure done?: No Differential Dx Considerations may include: Anemia Electrolyte imbalance X-Ray, Labs, Meds, VS Vital Signs Date Time Temp Pulse Resp B/P (MAP) Pulse Ox O2 Delivery O2 Flow Rate FiO2 06/22/25 10:26 97.5 86 16 126/94 95 97.5 Lab Test 06/22/25 12:15 06/22/25 11:11 Range/Units Lactic Acid Level 1.6 0.4-2.0 mmol/L Troponin I High Sensitivity 93 *H 99 *H </=54 ng/L White Blood Count 16.6 H 4.4-10.8 10^3/uL Red Blood Count 4.36 L 4.5-5.90 10^6/uL Hemoglobin 11.7 L 13.5-17.5 g/dL Hematocrit 35.1 L 41.0-53.0 % Mean Corpuscular Volume 80.4 80.0-100.0 fL Mean Corpuscular Hemoglobin 26.8 L 28.0-32.0 pg Mean Corpuscular Hemoglobin Concent 33.3 32.0-36.0 g/dL Red Cell Distribution Width 16.0 H 11.8-14.3 % Platelet Count 529 H 140-450 10^3/uL Mean Platelet Volume 7.0 6.9-10.8 fL Neutrophils (%) (Auto) 81.5 H 37.0-80.0 % Lymphocytes (%) (Auto) 11.0 10.0-50.0 % Monocytes (%) (Auto) 5.8 0.0-12.0 % Eosinophils (%) (Auto) 1.4 0.0-7.0 % Basophils (%) (Auto) 0.3 0.0-2.0 % Neutrophils # (Auto) 13.6 H 1.6-8.6 10 ^3/uL Lymphocytes # (Auto) 1.8 0.4-5.4 10 ^3/uL Monocytes # (Auto) 1.0 0-1.3 10 ^3/uL Eosinophils # (Auto) 0.2 0-0.8 10 ^3/uL Basophils # (Auto) 0.1 0-0.2 10 ^3/uL Nucleated Red Blood Cells 0.0 % Sodium Level 141 136-145 mmol/L Potassium Level 3.2 L 3.5-5.1 mmol/L Chloride Level 101 98-107 mmol/L Carbon Dioxide Level 30 20-31 mmol/L Anion Gap 10 5-15 Blood Urea Nitrogen 10 9-23 mg/dL Creatinine 1.22 0.700-1.30 mg/dL Glomerular Filtration Rate Calc 65 >90 mL/min BUN/Creatinine Ratio 8.2 L 10.0-20.0 Serum Glucose 131 H 74-106 mg/dL Calcium Level 9.2 8.7-10.4 mg/dL Current Medications Medications (Trade) Dose Ordered Sig/Terry Route Start Time Stop Time Status Last Admin Enoxaparin Sodium (Lovenox) 80 mg ONCE ONCE SC 06/22/25 12:00 06/22/25 12:01 DC 06/22/25 12:28 Piperacillin Sod/ Tazobactam Sod 100 ml @ 100 mls/hr ONCE ONCE IV 06/22/25 12:00 06/22/25 12:59 DC 06/22/25 12:53 Patient alert. Complaining of chest pain. Vitals stable. Answering questions. Cardiac marker elevated. Was given Lovenox. WBC elevated. Was given Zosyn. Blood sugar elevated. EKG reviewed does not show any acute changes. Explained to the patient. Continue monitoring. Time of 1ST Reevaluation: 11:35 Reevaluation 1ST: Unchanged Patient Education/Counseling: Diagnosis, Treatment, Prognosis Family Education/Counseling: No Family Present SEPSIS Sepsis Screen Date sepsis recognized/suspect: Jun 22, 2025 Time Sepsis recognized/suspect: 1030 Recent Procedure: No On Antibiotic Therapy: No Respiratory Rate >20: No Heart Rate >90: No Temp<36 C (96.8 F) or >38.3 C: No SBP <90 or MAP <65 mmHG: No New Acute Mental Status Change: No Is the patient on CPAP, BIPAP,: No Physician Orders Troponin-I Hs (06/22/25 13:59) Blood Culture (06/22/25 11:49) Vital Signs Date Time Temp Pulse Resp B/P (MAP) Pulse Ox O2 Delivery O2 Flow Rate FiO2 06/22/25 10:26 97.5 86 16 126/94 95 97.5 Laboratory Tests Test 06/22/25 11:11 06/22/25 12:15 White Blood Count 16.6 10^3/uL (4.4-10.8) H Lactic Acid Level 1.6 mmol/L (0.4-2.0) Medications Medications Dose Ordered Sig/Terry Route Start Time Stop Time Status Last Admin Dose Admin Enoxaparin Sodium 80 mg ONCE ONCE SC 06/22/25 12:00 06/22/25 12:01 DC 06/22/25 12:28 Piperacillin Sod/ Tazobactam Sod 100 ml @ 100 mls/hr ONCE ONCE IV 06/22/25 12:00 06/22/25 12:59 DC 06/22/25 12:53 Departure 1 Departure Time of Disposition: 14:14 Impression: Primary Impression: NSTEMI (non-ST elevated myocardial infarction) Additional Impressions: Hyperglycemia Leukocytosis Qualified Codes: D72.829 - Elevated white blood cell count, unspecified Disposition: ADMITTED INPATIENT Admit to: Med Surg Condition: Guarded Critical Care Note Critical Care Time?: Yes (90 min-critical care time only) Stability Stability form required: No Heart Score Heart Score: Heart Score Response (Comments) Value History Slightly Suspicious 0 EKG Normal 0 Age >65 2 Risk Factors >3 or Hx ASHD 2 Troponin >3 x's Normal limit 2 Total 6 I personally scribed for MAKEDA CURTIS MD ([email or web address]) on 06/22/25 at 11:17. Electronically submitted by Jesusita Echavarria ([email or web address]). MAKEDA CURTIS MD Jun 22, 2025 11:17
[2025-06-22 11:28] LABS: Hematocrit 35.1 % (41.0-53.0); Hemoglobin 11.7 g/dL (13.5-17.5); Mean Corpuscular Hemoglobin 26.8 pg (28.0-32.0); Mean Corpuscular Volume 80.4 fL (80.0-100.0); Nucleated Red Blood Cells % 0.0 %
[2025-06-22 11:32] LABS: Chloride 101 mmol/L (98-107); Sodium 141 mmol/L (136-145)
[2025-06-22 11:33] LABS: Anion Gap 10 (5-15); Calcium 9.2 mg/dL (8.7-10.4); Carbon Dioxide 30 mmol/L (20-31)
[2025-06-22 11:36] LABS: Potassium 3.2 mmol/L (3.5-5.1)
[2025-06-22 11:38] LABS: BUN/Creatinine Ratio 8.2 (10.0-20.0); Blood Urea Nitrogen 10 mg/dL (9-23)
[2025-06-22 11:44] LABS: Glucose 131 mg/dL (74-106)
[2025-06-22] MEDS: ENOXAPARIN SOD 80 MG/0.8ML SYRINGE SC ONE (12:28)
[2025-06-22] MEDS: PIPERACILLIN-TAZOB 3.375GM 100 ML IV ONE (12:53)
[2025-06-22 16:59] VITALS: PULSE 104; RESP 17; O2SAT 98
[2025-06-22 20:01] VITALS: PULSE 99; RESP 12; O2SAT 97
[2025-06-22] MEDS ORDERED: ACETAMINOPHEN 325 MG TAB PO PRN (20:45)
[2025-06-22] MEDS ORDERED: ONDANSETRON HCL 4 MG/2 ML VIAL IV PRN (20:45)
[2025-06-22] MEDS ORDERED: SODIUM CHLORIDE 0.9% 1,000 ML IV ONE (20:45)
--- NOTE | 2025-06-22 21:17 | DVHHPRES ---
History of Present Illness Resident Creating Document: MATT PERDOMO RESIDENT History of Present Illness This is a 64-year-old male with a past medical history of osteoarthritis, CAD S/P CABG and SD with 5 stents(last placed 1 week ago in [place]), hyperlipidemia, hypertension who has come to the emergency room today with chief complaints of bilateral arm pain for 4 days. Patient reports that few days after the stenting was done, he started having acute onset of aching pain in bilateral shoulders, 10/10 in intensity, radiating down to both his hands, aggravated on movement, with no relieving factors. Patient denies any chest pain, nausea, vomiting, fever, chills, cough, change in bowel or bladder habits, palpitations, recent falls, lightheadedness. On inquiry he admits that he has slight shortness of breath sometimes. On admission patient has a pulse of 104 and WBC of 16.6. Rest of the vitals are normal. We are admitting the patient for further workup and management. Past medical history: As stated above Past surgical history: Denies Family history: mother, aunt, grandmother all due to SD Social history: Patient denies any alcohol or drug abuse, he does not smoke anymore but used to 28 years ago, can not remember how many cigarettes he smoked Allergies: None PCP: Does not have one as he is in the process of moving to [facility] Code status: Full code Review of Systems Constitutional: No: Fever, Chills, Sweats, Weakness, Malaise, Other Eyes: No: Pain, Vision change, Conjunctivae inflammation, Eyelid inflammation, Other, Redness ENT: No: Ear pain, Ear discharge, Nose pain, Nose discharge, Nose congestion, Mouth pain, Mouth swelling, Throat pain, Throat swelling, Other Respiratory: No: Cough, Dry, Shortness of breath, SOB with excertion, Wheezing, Hemoptysis, Pleuritic Pain, Sputum, Wheezing, Other Cardiovascular: No: Chest Pain, Palpitations, Orthopnea, Paroxysmal Noc. Dyspnea, Edema, Lt Headedness, Other Gastrointestinal: No: Nausea, Vomiting, Abdominal Pain, Diarrhea, Constipation, Melena, Hematochezia, Other Genitourinary: No Dysuria, No Frequency, No Incontinence, No Hematuria, No Retention, No Other Musculoskeletal: other, arm pain; No: neck pain, shoulder pain, back pain, hand pain, leg pain, foot pain Skin: No: Rash, Lesions, Jaundice, Bruising, Other Neurological: No: Weakness, Numbness, Incoordination, Change in speech, Confusi on, Seizures, Other Allergies: Coded Allergies: NO KNOWN ALLERGIES (Unverified , 01/24/11) Medications Current Medications Medications Dose Ordered Sig/Terry Route Start Time Stop Time Status Last Admin Dose Admin Acetaminophen/ Hydrocodone Bitart 1 tab Q4HP PRN PO 06/22/25 20:45 UNV Ondansetron HCl 4 mg Q4HP PRN IV 06/22/25 20:45 UNV Acetaminophen 650 mg Q6HP PRN PO 06/22/25 20:45 UNV Aspirin 81 mg DAILY PO 06/23/25 10:00 UNV Clopidogrel Bisulfate 75 mg DAILY PO 06/23/25 10:00 UNV Metoprolol Tartrate 25 mg DAILY PO 06/23/25 10:00 UNV Patient Own Medication 1 tab DAILY PO 06/23/25 10:00 UNV Enoxaparin Sodium 40 mg DAILY SC 06/23/25 10:00 UNV Ceftriaxone Sodium 50 ml @ 100 mls/hr DAILY@09 IV 06/23/25 09:00 UNV Exam Vital Signs Vital Signs Date Time Temp Pulse Resp B/P (MAP) Pulse Ox O2 Delivery O2 Flow Rate FiO2 06/22/25 20:01 99 12 97 Room Air* 0 21 06/22/25 19:30 97.9 135/80 (98) 97.9 Exam Pt is lying on bed General Appearance: Alert, Oriented X3, Cooperative, Not in acute distress HEENT: Atraumatic, Mucous membranes moist/pink Respiratory: Clear to auscultation, Normal air movement, No added sounds Cardiovascular: Regular rate, Normal S1, Normal S2, No murmurs Abdominal: Active bowel sounds, Soft, no distention, no tenderness Extremities: No edema, Normal pulses, No tenderness/swelling Skin: No Significant rash, except past surgical scars Neuro: Normal speech, sensorimotor deficits none Psych/Mental Status: Mental status NL, Mood NL Nurse was there as pediatric social worker during examination Labs/Xrays Labs Test 06/22/25 14:28 06/22/25 12:15 06/22/25 11:11 Range/Units Troponin I High Sensitivity 73 *H </=54 ng/L Lactic Acid Level 1.6 0.4-2.0 mmol/L White Blood Count 16.6 H 4.4-10.8 10^3/uL Red Blood Count 4.36 L 4.5-5.90 10^6/uL Hemoglobin 11.7 L 13.5-17.5 g/dL Hematocrit 35.1 L 41.0-53.0 % Mean Corpuscular Volume 80.4 80.0-100.0 fL Mean Corpuscular Hemoglobin 26.8 L 28.0-32.0 pg Mean Corpuscular Hemoglobin Concent 33.3 32.0-36.0 g/dL Red Cell Distribution Width 16.0 H 11.8-14.3 % Platelet Count 529 H 140-450 10^3/uL Mean Platelet Volume 7.0 6.9-10.8 fL Neutrophils (%) (Auto) 81.5 H 37.0-80.0 % Lymphocytes (%) (Auto) 11.0 10.0-50.0 % Monocytes (%) (Auto) 5.8 0.0-12.0 % Eosinophils (%) (Auto) 1.4 0.0-7.0 % Basophils (%) (Auto) 0.3 0.0-2.0 % Neutrophils # (Auto) 13.6 H 1.6-8.6 10 ^3/uL Lymphocytes # (Auto) 1.8 0.4-5.4 10 ^3/uL Monocytes # (Auto) 1.0 0-1.3 10 ^3/uL Eosinophils # (Auto) 0.2 0-0.8 10 ^3/uL Basophils # (Auto) 0.1 0-0.2 10 ^3/uL Nucleated Red Blood Cells 0.0 % Sodium Level 141 136-145 mmol/L Potassium Level 3.2 L 3.5-5.1 mmol/L Chloride Level 101 98-107 mmol/L Carbon Dioxide Level 30 20-31 mmol/L Anion Gap 10 5-15 Blood Urea Nitrogen 10 9-23 mg/dL Creatinine 1.22 0.700-1.30 mg/dL Glomerular Filtration Rate Calc 65 >90 mL/min BUN/Creatinine Ratio 8.2 L 10.0-20.0 Serum Glucose 131 H 74-106 mg/dL Calcium Level 9.2 8.7-10.4 mg/dL SEPSIS Sepsis Screen Date sepsis recognized/suspect: Jun 22, 2025 Time Sepsis recognized/suspect: 1929 Recent Procedure: No On Antibiotic Therapy: No Respiratory Rate >20: No Heart Rate >90: Yes Temp<36 C (96.8 F) or >38.3 C: No SBP <90 or MAP <65 mmHG: No New Acute Mental Status Change: No Is the patient on CPAP, BIPAP,: No Physician Orders Admit (06/22/25 20:33) Code Status (06/22/25 20:33) Hydrocodone-Acet 5/325mg Tab ([place] 5/32 (06/22/25 20:45) Ondansetron Hcl (Zofran) (06/22/25 20:45) Complete Blood Count (06/23/25 04:00) Comprehensive Metabolic Panel (06/23/25 04:00) Cardiac Diet-2gna,Lofat,Lochol (06/23/25 Breakfast) Condition: Unstable (06/22/25 20:33) Acetaminophen Tablet (Tylenol Tablet) (06/22/25 20:45) Stat Ekg For Chest Pain (06/22/25 20:33) Solar Installation Supervisor For 24 Hours (06/22/25 20:33) Notify Md Of Changes From Base (06/22/25 20:33) Chest Xray 1 View (06/22/25 20:33) B-Type Natriuretic Peptide (06/22/25 20:33) Urinalysis (06/22/25 20:33) Drug Screen (06/22/25 20:33) Magnesium (06/22/25 20:33) Hepatic Panel (06/22/25 20:33) Potassium Er Tablet (Klor-Con Tablet) (06/22/25 20:45) Aspirin Enteric Coated Tablet (Ecotrin E (06/23/25 10:00) Clopidogrel Bisulfate (Plavix) (06/23/25 10:00) Metoprolol Tartrate Tablet (Lopressor Ta (06/23/25 10:00) (Nf) Losartan Potassium & Hydrochlo (Los (06/23/25 10:00) Creatine Kinase (06/22/25 20:33) Electrocardigram (06/22/25 20:33) Enoxaparin Sodium (Lovenox) (06/23/25 10:00) D-Dimer (06/22/25 20:33) Ceftriaxone 1gm/50ml (Rocephin) (06/23/25 09:00) Ceftriaxone 1gm/50ml (Rocephin) (06/22/25 20:45) Sodium Chloride 0.9% (06/22/25 20:45) Sodium Chloride 0.9% (06/22/25 20:45) C-Reactive Protein (06/22/25 20:33) Erythrocyte Sedimentation Rate (06/22/25 20:33) Lactic Acid W/ Reflex Order (06/23/25 04:00) Vital Signs Date Time Temp Pulse Resp B/P (MAP) Pulse Ox O2 Delivery O2 Flow Rate FiO2 06/22/25 20:01 99 12 97 Room Air* 0 21 06/22/25 19:30 97.9 99 12 135/80 (98) 99 97.9 06/22/25 18:00 83 19 165/72 (103) 94 06/22/25 16:59 104 17 98 Room Air* 0 21 06/22/25 16:58 97.6 104 17 118/79 (92) 98 97.6 Laboratory Tests Test 06/22/25 11:11 06/22/25 12:15 White Blood Count 16.6 10^3/uL (4.4-10.8) H Lactic Acid Level 1.6 mmol/L (0.4-2.0) Medications Medications Dose Ordered Sig/Terry Route Start Time Stop Time Status Last Admin Dose Admin Enoxaparin Sodium 80 mg ONCE ONCE SC 06/22/25 12:00 06/22/25 12:01 DC 06/22/25 12:28 80 MG Piperacillin Sod/ Tazobactam Sod 100 ml @ 100 mls/hr ONCE ONCE IV 06/22/25 12:00 06/22/25 12:59 DC 06/22/25 12:53 100 MLS/HR Assessment/Plan Assessment/Plan #SIRS, unknown etiology -HR 103, WBC 16.6 -UDS -Chest x-ray shows no acute cardiopulmonary disease -blood culture -UA normal -ceftriaxone 1 g IV daily -NS 500 mL bolus once and NS 100 mL/hour once -pain management with acetaminophen 650 mg p.o. q.6 PRN, [place] 5/325 mg p.o. q.4 PRN -Zofran 4 mg IV q.4 PRN -ESR 91, CRP 6.27 -lactic acid 1.3 -D-dimer 1.48 -Doppler of bilateral extremity reveals no right or left femoral-popliteal venous thrombosis -CT angio with contrast of the chest ordered -CK 161 #CHF, systolic dysfunction, HFrEF 38%, not under acute exacerbation #CAD status post CABG and #SD s/p 5 stents #NSTEMI type 2 #hypertension #hyperlipidemia -last echo done on 05/02/2025 -troponins down trending 99> 93> 73 -BNP 121.16 -EKG sinus rhythm, borderline T abnormalities diffuse leads -Telemetry -metoprolol tartrate 25 mg p.o. daily -Atorvastatin 80 mg p.o. daily -losartan /hydrochlorothiazide 100/12.5 mg daily -aspirin 81 mg p.o. daily -Clopidogrel 75 mg p.o. daily #hypokalemia -Repleted -magnesium 2.3 # questionable history of COPD, not on exacerbation -monitor patient -consider med nebulizations if required DVT prophylaxis: Lovenox 40 mg subcutaneous daily scheduled Diet: cardiac diet Goals of care discussed with the patient for more than 27 minutes: Full code status Case discussed with Dr. Hong, patient Plan discussed with: Patient My Orders Orders - MATT PERDOMO RESIDENT Procedure Category Date Status Time Admit ADMIT 06/22/25 Transmitted 20:33 Code Status CODE 06/22/25 Transmitted 20:33 Hydrocodone-Acet PHA 06/22/25 Logged 5/325mg Tab ([place] 20:45 Ondansetron Hcl PHA 06/22/25 Logged (Zofran) 20:45 Complete Blood Count LAB 06/23/25 Verified 04:00 Comprehensive LAB 06/23/25 Verified Metabolic Panel 04:00 Cardiac DIET 06/23/25 Transmitted Diet-2gna,Lofat,Lochol Breakfast Condition: Unstable EVA 06/22/25 In Process 20:33 Acetaminophen Tablet PHA 06/22/25 Logged (Tylenol Tablet) 20:45 Stat Ekg For Chest EVA 06/22/25 In Process Pain 20:33 Solar Installation Supervisor For EVA 06/22/25 In Process 24 Hours 20:33 Notify Of Changes EVA 06/22/25 In Process From Base 20:33 Chest Xray 1 View XY 06/22/25 Taken 20:33 B-Type Natriuretic LAB 06/22/25 Logged Peptide 20:33 Urinalysis LAB 06/22/25 Logged 20:33 Drug Screen LAB 06/22/25 Logged 20:33 Magnesium LAB 06/22/25 Logged 20:33 Hepatic Panel LAB 06/22/25 Logged 20:33 Potassium Er Tablet PHA 06/22/25 Logged (Klor-Con Tablet) 20:45 Aspirin Enteric PHA 06/23/25 Logged Coated Tablet 10:00 Clopidogrel Bisulfate PHA 06/23/25 Logged (Plavix) 10:00 Metoprolol Tartrate PHA 06/23/25 Logged Tablet (Lopressor Ta 10:00 (Nf) Losartan PHA 06/23/25 Logged Potassium & Hydrochlo 10:00 Creatine Kinase LAB 06/22/25 Logged 20:33 Electrocardigram EKG 06/22/25 Logged 20:33 Enoxaparin Sodium PHA 06/23/25 Logged (Lovenox) 10:00 D-Dimer LAB 06/22/25 Logged 20:33 Ceftriaxone 1gm/50ml PHA 06/23/25 Logged (Rocephin) 09:00 Ceftriaxone 1gm/50ml PHA 06/22/25 Logged (Rocephin) 20:45 Sodium Chloride 0.9% PHA 06/22/25 Logged 20:45 Sodium Chloride 0.9% PHA 06/22/25 Logged 20:45 C-Reactive Protein LAB 06/22/25 Logged 20:33 Erythrocyte LAB 06/22/25 Logged Sedimentation Rate 20:33 Lactic Acid W/ Reflex LAB 06/23/25 Verified Order 04:00 Date of Service: Jun 22, 2025 Billing Provider: DIAMANTE HONG MD Common Visit Codes: 35381-KYN/OBS SAME DATE (HIGH) Secondary Visit Codes: 44919-LJOOJEUR CARE PLAN 30 MINUTES MATT PERDOMO RESIDENT Jun 22, 2025 21:17 MIKAYLA ALCANTARA RESIDENT Jun 23, 2025 00:24 DOMONIQUE NELSON RESIDENT Jun 23, 2025 17:45
--- NOTE | 2025-06-22 21:31 | DVH ---
CHEST RADIOGRAPH Indication: sob Technique: Single frontal view of the chest was obtained Comparison: XY CHEST XRAY 1 VIEW on DOS: 05/02/25, XY CHEST PORTABLE on DOS: 01/14/24, CHEST PORTABLE on DOS: 08/01/21 FINDINGS: Lines and Tubes: None Lungs: No focal consolidation. Pleura: No effusion. No pneumothorax. Cardiomediastinal contours: Unremarkable Bones: No acute osseous abnormality. IMPRESSION: 1. No acute cardiopulmonary disease. 2. No significant change from 05/02 2025.
[2025-06-22 21:55] VITALS: PULSE 100; RESP 14; O2SAT 98
[2025-06-22] MEDS: POTASSIUM CHL 20 Meq TABLET PO ONE (22:10)
[2025-06-22 22:12] LABS: Alanine Aminotransferase 27.0 U/L (7-40); Albumin 4.0 g/dL (3.2-4.8); Bilirubin, Direct 0.2 mg/dL (<0.3); Bilirubin, Total 0.4 mg/dL (0.2-1.0); Creatine Kinase IFCC 161.0 U/L (46-171); Magnesium 2.3 mg/dL (1.6-2.6); Total Protein 8.1 g/dL (5.7-8.2)
[2025-06-22] MEDS: SODIUM CHLORIDE 0.9% 500 ML IV ONE (22:15)
[2025-06-22] MEDS: HYDROcodone-ACET 5/325MG TAB PO PRN (22:16)
[2025-06-22 22:29] LABS: Alkaline Phosphatase 133.0 U/L (46-116)
[2025-06-22 22:41] VITALS: BP 128/85; PULSE 103; PULSE 98; RESP 18; TEMP 98; O2SAT 0; O2SAT 98
--- NOTE | 2025-06-22 23:51 | DVH ---
Bilateral lower extremity venous duplex Clinical History: eval for dvt Comparison: US BILAT LOWER DVT on DOS: 05/03/25 Technique: Duplex Doppler evaluation of the deep venous systems of both lower extremities from the common femora l veins to the popliteal veins including color Doppler and spectral/pulsed waveform analysis was perf ormed. Findings: RIGHT SIDE: The common femoral vein demonstrates appropriate compressibility and waveform variability. There is compressibility/patency of the great saphenous vein at the proximal thigh. The femoral vein demonstrates appropriate compressibility and waveform variability. The deep femoral vein demonstrates appropriate compressibility and waveform variability. The popliteal vein demonstrates appropriate compressibility and waveform variability. There is normal compressibility at the tibioperoneal trunk. LEFT SIDE: The common femoral vein demonstrates appropriate compressibility and waveform variability. There is compressibility/patency of the great saphenous vein at the proximal thigh. The femoral vein demonstrates appropriate compressibility and waveform variability. The deep femoral vein demonstrates appropriate compressibility and waveform variability. The popliteal vein demonstrates appropriate compressibility and waveform variability. There is normal compressibility at the tibioperoneal trunk. Impression: 1. No right or left femoropopliteal venous thrombosis.
[2025-06-23] VITALS (7 sets, daily range): BP systolic 121–151; BP diastolic 81–96; PULSE 84–109; RESP 16–18; TEMP 97.1–98.4; O2SAT 96–99
[2025-06-23] MEDS: IOHEXOL 350 MG/ML 100ML IJ ONE (00:24)
--- NOTE | 2025-06-23 01:21 | DVH ---
CTA Chest with intravenous contrast INDICATION: chest pain, recent stent placed COMPARISON: Previous study chest radiograph TECHNIQUE: Multidetector spiral CTA of the chest was performed of the chest with intravenous contrast . PULMONARY ANGIOGRAPHY PROTOCOL was utilized using a bolus-tracking technique centered on the main p ulmonary artery. Axial, coronal and sagittal multiplanar and MIP reformats were performed. Radiation Dose : 1. Chest: CTDI volume is 24.47 mGy. Dose-length product is 934.93 mGy*cm The dose indicators for CT are the volume Computed Tomography (CT) Dose Index (CTDIvol) and the Dose Length Product (DLP), and are measured in units of mGy and mGy-cm, respectively. These indicators are not patient dose, but values generated from the CT scanner acquisition factors. The report includes radiation exposure data for exposures received during this examination. Findings: Pulmonary arteries: Technical factors adequate for assessment of the level of the proximal subsegment al arteries. No visualized filling defect. Central arteries are normal in caliber. Lower neck: Unremarkable. Lungs: No focal consolidation. Pleura: Normal. Heart/Vascular Structures: Normal heart size with post CABG change. No pericardial effusion. Mild ao rtic and branch vessel atherosclerosis. Lymph Nodes: No adenopathy Musculoskeletal: No acute abnormality. Degenerative change of the thoracic spine. Uncomplicated frost otomy hardware. Partially imaged lumbar spine postsurgical change. Soft tissues: Unremarkable. Upper abdomen: No acute abnormality. IMPRESSION: 1. No pulmonary embolism to the level of the proximal subsegmental arteries. 2. No acute thoracic finding.
--- NOTE | 2025-06-23 03:40 | ECG ---
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
[2025-06-23] MEDS: HYDROmorphone HCL 2 MG/ML VL/or syr IV PRN (03:48)
[2025-06-23 04:37] LABS: Opiate Scree,Urine Neg (NEGATIVE)
[2025-06-23 04:39] LABS: Amphetamine Screen, Urine Neg (NEGATIVE); Barbiturate Scree,Urine Neg (NEGATIVE); Benzodiazephine Screen, Urine Neg (NEGATIVE); Cannabinoid Screen, Urine Neg (NEGATIVE); Cocaine Screen, Urine Neg (NEGATIVE); Phencyclidine Screen, Urine Neg (NEGATIVE)
[2025-06-23 04:59] LABS: Urine Protein, UAD TRACE (Negative)
[2025-06-23 07:30] LABS: Hematocrit 30.2 % (41.0-53.0); Hemoglobin 10.5 g/dL (13.5-17.5); Mean Corpuscular Hemoglobin 28.0 pg (28.0-32.0); Mean Corpuscular Volume 80.5 fL (80.0-100.0); Nucleated Red Blood Cells % 0.0 %
[2025-06-23 07:45] LABS: Alanine Aminotransferase 25 U/L (7-40); Albumin 3.7 g/dL (3.2-4.8); Anion Gap 10 (5-15); BUN/Creatinine Ratio 7.3 (10.0-20.0); Bilirubin, Total 0.4 mg/dL (0.2-1.0); Calcium 9.0 mg/dL (8.7-10.4); Carbon Dioxide 26 mmol/L (20-31); Chloride 103 mmol/L (98-107); Glucose 106 mg/dL (74-106); Potassium 3.6 mmol/L (3.5-5.1); Sodium 139 mmol/L (136-145); Total Protein 7.5 g/dL (5.7-8.2)
[2025-06-23 07:51] LABS: Alkaline Phosphatase 116 U/L (46-116); Blood Urea Nitrogen 8 mg/dL (9-23)
--- NOTE | 2025-06-23 08:57 | DVH ---
CLINICAL INDICATION: pain TECHNIQUE: 1 radiographic views of the right shoulder were obtained. Comparison: XY L SHOULDER 1V XRAY on DOS: 06/23/25 FINDINGS/IMPRESSION: There is no evidence of acute fracture or dislocation. The visualized joint space is well maintained. The alignment is anatomical. There is no radiopaque foreign body.
--- NOTE | 2025-06-23 08:57 | DVH ---
CLINICAL INDICATION: pain TECHNIQUE: 1 radiographic views of the left shoulder were obtained. Comparison: XY R SHOULDER 1V XRAY on DOS: 06/23/25 FINDINGS/IMPRESSION: There is no evidence of acute fracture or dislocation. The visualized joint space is well maintained. The alignment is anatomical. There is no radiopaque foreign body.
[2025-06-23] MEDS: LOSARTAN POTASSIUM 50 MG TAB PO SCH (09:08)
[2025-06-23] MEDS: hydroCHLOROthiazide 25 MG TAB PO SCH (09:09)
[2025-06-23] MEDS: METOPROLOL SUCCINATE XL 50 MG TAB PO SCH (09:10)
[2025-06-23] MEDS: ASPirin-EC 81 mg tab PO SCH (09:11)
[2025-06-23] MEDS: CLOPIDOGREL BISULFATE 75 MG TAB PO SCH (09:11)
[2025-06-23] MEDS: ENOXAPARIN SOD 40 MG/0.4 ML SYRINGE SC SCH (09:12)
[2025-06-23] MEDS ORDERED: PATIENTS OWN MEDICATION (Atorvastatin Calcium 80 MG) PO SCH (10:00)
[2025-06-23] MEDS ORDERED: PATIENTS OWN MEDICATION (Losartan Potassium & Hydrochlo (Losartan Potassium/Hydroc) 1 TAB) PO SCH (10:00)
--- NOTE | 2025-06-23 10:01 | DVH ---
Bilateral Upper Extremity Venous Duplex Date: 06/23/2025 08:20 AM Clinical History: pain Comparison: US BILAT LOWER DVT on DOS: 06/22/25, US BILAT LOWER DVT on DOS: 05/03/25 Findings: Duplex Doppler evaluation of the venous systems of the right and left lower neck and upper extremitie s including color Doppler and spectral/pulsed waveform analysis was performed. RIGHT SIDE: The internal jugular vein demonstrates appropriate compressibility and waveform variability. The subclavian vein is patent on color Doppler evaluation without intraluminal thrombus and demonstra derian waveform variability. The visualized portion of the brachiocephalic vein is patent on color Doppler evaluation without intr aluminal thrombus and demonstrates waveform variability. The axillary vein demonstrates appropriate compressibility and waveform variability. The brachial veins demonstrate appropriate compressibility and patency on Doppler evaluation. The basilic vein demonstrates appropriate compressibility and patency on Doppler evaluation. The cephalic vein demonstrates thrombus. LEFT SIDE: The internal jugular vein demonstrates appropriate compressibility and waveform variability. The subclavian vein is patent on color Doppler evaluation without intraluminal thrombus and demonstra derian waveform variability. The visualized portion of the brachiocephalic vein is patent on color Doppler evaluation without intr aluminal thrombus and demonstrates waveform variability. The axillary vein demonstrates appropriate compressibility and waveform variability. The brachial veins demonstrate appropriate compressibility and patency on Doppler evaluation. The basilic vein demonstrates appropriate compressibility and patency on Doppler evaluation. The cephalic vein demonstrates thrombus. IMPRESSION: No venous thrombus identified in the right or left upper extremity vessels evaluated above. If clinical concern/symptoms persist or worsen, short-interval follow-up study is suggested. END IMPRESSION:
--- NOTE | 2025-06-23 16:52 | DVHCONRES ---
Date Seen: Jun 23, 2025 Resident Creating Document: FRAKN PERRY RESIDENT Referring Physician Dr An Reason for Consultation NSTEMI History of Present Illness 64-year-old male with PMHx significant for CAD s/p CABG (4x grafts, 2014), hypertension, and hyperlipidemia. The patient presents with right shoulder discomfort. He is a poor historian but reports bilateral arm pain for four days, now localized to bilateral shoulders. He denies active chest pain, dyspnea, orthopnea, palpitations, or functional decline. He underwent coronary angiography about a year ago that showed three patent grafts: LIMALAD (not fully interrogated but presumed patent), SVGOM, and SVGR PDA; [place] coronaries had CTOs. No intervention was performed then. The patient reports stent placement in [place] one week ago (records unavailable). On admission, troponins trended 99 - 93 - 73 ng/L. ESR and WBC were elevated. EKG shows no new ischemic changes. Echocardiogram (Apr 2025) demonstrated EF 38% with moderate LV systolic dysfunction and apical hypokinesis. He is currently hemodynamically stable and chest-pain free. PMHx: CAD s/p CABG (4 grafts, 2014), HTN, HLD, COPD PSHx: CABG 4 (2014); PCI (1 wk ago, [place] records pending). Social: Lives in a hotel temporarily; planning to move to [place]. Denies tobacco or drug use. Occasional alcohol. Family: Non-contributory. Family History: Cardiovascular disease G8 MOTHER Family history: Arthritis G8 FATHER, Onset:50's - 60 Family history: Osteoporosis G8 MOTHER, Onset:50's - 60 Hypertension G8 MOTHER Allergies: Coded Allergies: NO KNOWN ALLERGIES (Unverified , 01/24/11) Home Meds Active Scripts Furosemide (Lasix) 40 Mg Tab, 40 MG PO DAILY for 20 Days, #20 TAB Prov:VIKAS SERNA MD 05/04/25 Losartan Potassium & Hydrochlo (Losartan Potassium/Hydroc) 1 Tab Tab, 1 TAB PO DAILY for 90 Days, #90 TAB 2 Refills [Losartan/hydrochlorothiazide 100/12.5 mg] Prov:CECE SANDOVAL DO 01/16/24 Metoprolol Tartrate (Lopressor) 25 Mg Tb, 1 TAB PO DAILY for 90 Days, #90 TAB 2 Refills Prov:CECE SANDOVAL DO 01/16/24 Clopidogrel Bisulfate (Plavix) 75 Mg Tab, 75 MG PO DAILY for 90 Days, #90 TAB 3 Refills Prov:CECE SANDOVAL DO 01/16/24 Atorvastatin Calcium (ATORVASTATIN CALCIUM) 80 Mg Tab, 80 MG PO DAILY for 90 Days, #90 TAB 2 Refills Prov:CECE SANDOVAL DO 01/16/24 Aspirin (Aspirin Low Dose) 81 Mg Tab, 81 MG PO DAILY for 90 Days, #90 TAB 2 Refills Prov:CECE SANDOVAL DO 01/16/24 Current Medications Current Medications Medications (Trade) Dose Ordered Sig/Terry Route PRN Reason Start Time Stop Time Status Last Admin Acetaminophen/ Hydrocodone Bitart ([place] 5/325MG Tab) 1 tab Q4HP PRN PO MODERATE PAIN (4-6 PAIN SCALE) 06/22/25 20:45 06/23/25 09:47 Ondansetron HCl (Zofran) 4 mg Q4HP PRN IV NAUSEA / VOMITING 06/22/25 20:45 Acetaminophen (Tylenol Tablet) 650 mg Q6HP PRN PO PAIN SCALE 1-3 OR TEMP>100.4 06/22/25 20:45 Aspirin (Ecotrin Enteric Coated Tablet) 81 mg DAILY PO 06/23/25 10:00 06/23/25 09:11 Clopidogrel Bisulfate (Plavix) 75 mg DAILY PO 06/23/25 10:00 06/23/25 09:11 Metoprolol Succinate (Toprol Xl) 25 mg DAILY PO 06/23/25 10:00 06/23/25 09:10 Patient Own Medication 80 mg DAILY PO 06/23/25 10:00 06/22/25 21:09 DC Patient Own Medication 1 tab DAILY PO 06/23/25 10:00 06/22/25 22:04 DC Enoxaparin Sodium (Lovenox) 40 mg DAILY SC 06/23/25 10:00 Ceftriaxone Sodium 50 ml @ 100 mls/hr DAILY@09 IV 06/23/25 09:00 06/23/25 09:07 Losartan Potassium (Cozaar Tablet) 100 mg DAILY PO 06/23/25 10:00 06/23/25 09:08 Hydrochlorothiazide (hydroCHLOROthiazide TABLET) 12.5 mg DAILY PO 06/23/25 10:00 06/23/25 09:09 Hydromorphone HCl (Dilaudid Injection) 0.25 mg Q4HPRN PRN IV SEVERE PAIN (7-10 PAIN SCALE) 06/23/25 03:15 06/23/25 03:48 Review of Systems ROS: Negative for chest pain, dyspnea, palpitations, syncope, orthopnea, PND. Positive for bilateral shoulder pain. Vital Signs Vital Signs Date Time Temp Pulse Resp B/P (MAP) Pulse Ox O2 Delivery O2 Flow Rate FiO2 06/23/25 13:00 98.0 84 18 121/81 (94) 99 98.0 06/23/25 08:00 Room Air* 0 21 Physical Exam Gen Alert, no acute distress. CV Regular rate and rhythm, no murmurs/rubs/gallops, no JVD. Lungs Clear bilaterally. Abd Soft, NT, ND. Ext No edema, pulses 2+ bilaterally. Neuro Grossly intact. Labs/Diagnostic Data Labs Test 06/23/25 14:07 06/23/25 06:10 06/23/25 03:54 06/22/25 21:40 Range/Units White Blood Count 13.8 H 4.4-10.8 10^3/uL Red Blood Count 3.75 L 4.5-5.90 10^6/uL Hemoglobin 10.5 L 13.5-17.5 g/dL Hematocrit 30.2 #L 41.0-53.0 % Mean Corpuscular Volume 80.5 80.0-100.0 fL Mean Corpuscular Hemoglobin 28.0 28.0-32.0 pg Mean Corpuscular Hemoglobin Concent 34.7 32.0-36.0 g/dL Red Cell Distribution Width 15.9 H 11.8-14.3 % Platelet Count 470 H 140-450 10^3/uL Mean Platelet Volume 7.1 6.9-10.8 fL Neutrophils (%) (Auto) 73.4 37.0-80.0 % Lymphocytes (%) (Auto) 17.2 10.0-50.0 % Monocytes (%) (Auto) 7.3 0.0-12.0 % Eosinophils (%) (Auto) 1.9 0.0-7.0 % Basophils (%) (Auto) 0.2 0.0-2.0 % Neutrophils # (Auto) 10.1 H 1.6-8.6 10 ^3/uL Lymphocytes # (Auto) 2.4 0.4-5.4 10 ^3/uL Monocytes # (Auto) 1.0 0-1.3 10 ^3/uL Eosinophils # (Auto) 0.3 0-0.8 10 ^3/uL Basophils # (Auto) 0 0-0.2 10 ^3/uL Nucleated Red Blood Cells 0.0 % Sodium Level 139 136-145 mmol/L Potassium Level 3.6 3.5-5.1 mmol/L Chloride Level 103 98-107 mmol/L Carbon Dioxide Level 26 20-31 mmol/L Anion Gap 10 5-15 Blood Urea Nitrogen 8 L 9-23 mg/dL Creatinine 1.09 0.700-1.30 mg/dL Glomerular Filtration Rate Calc 75 >90 mL/min BUN/Creatinine Ratio 7.3 L 10.0-20.0 Serum Glucose 106 74-106 mg/dL Lactic Acid Level 0.9 0.4-2.0 mmol/L Calcium Level 9.0 8.7-10.4 mg/dL Total Bilirubin 0.4 0.2-1.0 mg/dL Aspartate Amino Transferase (AST) 35 13-40 U/L Alanine Aminotransferase (ALT) 25 7-40 U/L Alkaline Phosphatase 116 46-116 U/L Total Protein 7.5 5.7-8.2 g/dL Albumin 3.7 3.2-4.8 g/dL Urine Color Light-yellow Yellow Urine Clarity Clear Clear Urine pH 6.5 5.0-9.0 Urine Specific [place] > 1.050 H 1.001-1.035 Urine Protein Trace H Negative Urine Ketones Negative Negative Urine Blood Negative Negative /uL Urine Nitrite Negative Negative Urine Bilirubin Negative Negative Urine Urobilinogen Normal Negative mg/dL Urine Leukocyte Esterase Negative Negative /uL Urine RBC None seen 0 - 3 /hpf Urine Microscopic WBC 1 0-3 /HPF Urine Squamous Epithelial Cells Few <5 /hpf Urine Bacteria None seen None Seen /hpf Urine Glucose Normal Normal mg/dL Urine Opiates Screen Neg NEGATIVE Urine Fentanyl Screen Neg NEGATIVE Urine Barbiturates Screen Neg NEGATIVE Urine Phencyclidine Screen Neg NEGATIVE Urine Amphetamines Screen Neg NEGATIVE Urine Benzodiazepines Screen Neg NEGATIVE Urine Cocaine Screen Neg NEGATIVE Urine Cannabinoids Screen Neg NEGATIVE D-Dimer, Quantitative 1.46 H 0.0-0.49 mg/L FEU Magnesium Level 2.3 1.6-2.6 mg/dL Direct Bilirubin 0.2 <0.3 mg/dL Creatine Kinase 161 46-171 U/L C-Reactive Protein High Sensitivity 6.27 H <1.0 mg/dL Test 06/22/25 14:28 06/22/25 11:11 Range/Units Troponin I High Sensitivity 73 *H </=54 ng/L Erythrocyte Sedimentation Rate 91 H 0-20 mm/hr B-Type Natriuretic Peptide 121.16 0-100 pg/mL Microbiology Date/Time Source Procedure Growth Status 06/23/25 00:52 Nose MRSA Screen - Final Complete 06/22/25 12:15 Blood Blood Culture - Preliminary NO GROWTH AFTER 24 HOURS OF INCUBATION. Resulted Assessment NSTEMI type 2 Ischemic cardiomyopathy (EF 38%) s/p CABG and recent PCI: No ongoing chest pain or EKG changes. Troponins downtrending. Obtain outside PCI report for graft and stent details. Continue GDMT Optimize volume status and continue telemetry monitoring. Stress testing deferred given recent PCI (1 week ago) and down-trending biomarkers. Recommend outpatient ischemia evaluation, 46 weeks post-PCI or earlier if new symptoms develop. Repeat echocardiogram if any new heart failure symptoms occur. SIRS unknown etiology Continue inpatient work up per Primary team Bilateral shoulder pain: Likely musculoskeletal; not typical of angina. Symptomatic treatment; re-evaluate if cardiac symptoms recur. HTN, HLD: Continue medical therapy; optimize blood-pressure control and lipid management . Disposition: Continue telemetry monitoring during hospitalization. Arrange outpatient cardiology follow-up post-discharge for ischemia evaluation and review of outside PCI records. Case discussed with Dr Cox Time spent on critical care 71 min Plan discussed with: Patient, Other (Dr An ) Visit Coding Cardiology RES Date of Service: Jun 23, 2025 Billing Provider: OJ BARR Sr., MD Cardiology Common Codes: [id number] CARE 30-74 MIN FRANK PERRY RESIDENT Jun 23, 2025 16:52
--- NOTE | 2025-06-23 17:10 | DVHPNRES ---
Progress Note Date Seen: Jun 23, 2025 Resident Creating Document: DOMONIQUE NELSON RESIDENT Medical Necessity Reason Pt with a Central, PICC or Fol: No Subjective Review of Systems Sarmad Diop is a 64-year old male with a past medical history of CAD s/p CABG and TN with 5 stents placed (the last being placed 1 week back in [place]), hyperlipidemia, hypertension and osteoarthritis to the ER with chief complaint of bilateral arm pain for 4 days. Patient describes the pain as aching, 10/10 on intensity, multifocal shoulders and radiating down his arms. He denies any chest pain, nausea, vomiting, fever, chills and palpitations. He has slight shortness of breath on and off. On admission, troponins trended 99 - 93 - 73 ng/L. ESR and WBC were elevated. EKG showed no new ischemic changes. Echocardiogram (Apr 2025) demonstrated EF 38% with moderate LV systolic dysfunction and apical hypokinesis. Cardiology evaluated the patient and recommended outpatient ischemia evaluation, go to 6 weeks post PCI earlier if new symptoms develop. Past medical history:CAD s/p CABG and TN with 5 stents placed (the last being placed 1 week back in [place]), hyperlipidemia, hypertension, osteoarthritis Past surgical history: CABG 4 (2014); PCI (1 wk ago, [place] records pending) Family history: Mother, grandmother,aunt all due to TN Social & Personal history: Currently lives in a hotel temporarily, planning to move to [place] Smoking: Denies Alcohol: Occasional use Drugs: Denies Allergies: no known allergies Patient seen and examined at bedside. Patient is alert and oriented to time, place person and responding to all questions. Patient complains of bilateral shoulder pain, left>right. Eyes: No Pain, No Vision change, No Conjunctivae inflammation, No Eyelid inflammation, No Redness ENT: No Ear pain, No Ear discharge, No Nose pain, No Nose discharge, No Nose congestion, No Mouth pain, No Mouth swelling, No Throat pain, No Throat swelling Cardiovascular: No Chest Pain, No Palpitations, No Orthopnea, No Paroxysmal No Dyspnea, No Edema, No Lt Headedness Respiratory: No Cough, No Dry, No Shortness of breath, No SOB with exertion, No Wheezing, No Hemoptysis, No Pleuritic Pain, No Sputum Gastrointestinal: No Nausea, No Vomiting, No Abdominal Pain, No Diarrhea, No Constipation, No Melena, No Hematochezia Genitourinary: No Dysuria, No Frequency, No Incontinence, No Hematuria, No Retention Objective vital signs Vital Sign Date Time Temp Pulse Resp B/P (MAP) Pulse Ox O2 Delivery O2 Flow Rate FiO2 06/23/25 16:50 97.1 88 18 151/84 (106) 99 97.1 06/23/25 08:00 Room Air* 0 21 Total Intake and Output 06/22/25 06/22/25 06/23/25 15:00 23:00 07:00 Intake Total 200 ml Output Total 100 ml Balance 100 ml medications Current Medications Medications Dose Ordered Sig/Terry Route Start Time Stop Time Status Last Admin Dose Admin Acetaminophen/ Hydrocodone Bitart 1 tab Q4HP PRN PO 06/22/25 20:45 06/23/25 09:47 1 TAB Ondansetron HCl 4 mg Q4HP PRN IV 06/22/25 20:45 Acetaminophen 650 mg Q6HP PRN PO 06/22/25 20:45 Aspirin 81 mg DAILY PO 06/23/25 10:00 06/23/25 09:11 81 MG Clopidogrel Bisulfate 75 mg DAILY PO 06/23/25 10:00 06/23/25 09:11 75 MG Metoprolol Succinate 25 mg DAILY PO 06/23/25 10:00 06/23/25 09:10 25 MG Enoxaparin Sodium 40 mg DAILY SC 06/23/25 10:00 Ceftriaxone Sodium 50 ml @ 100 mls/hr DAILY@09 IV 06/23/25 09:00 06/23/25 09:07 100 MLS/HR Losartan Potassium 100 mg DAILY PO 06/23/25 10:00 06/23/25 09:08 100 MG Hydrochlorothiazide 12.5 mg DAILY PO 06/23/25 10:00 06/23/25 09:09 12.5 MG Hydromorphone HCl 0.25 mg Q4HPRN PRN IV 06/23/25 03:15 06/23/25 03:48 0.25 MG Examination General Appearance: Cooperative. Well developed. Well nourished. NAD Head Exam: Normal inspection Neck Exam: Normal inspection. Non-tender. Normal alignment Pulmonary/Respiratory: Chest non-tender. Clear bilateral breath sounds, no crackles, no wheezing. Cardiovascular/Chest: Regular rate and rhythm. No murmurs. No JVD. Peripheral Pulses: 2+ Radial (R). 2+ Radial (L). 2+ Pedal (R). 2+ Pedal (L) Abdominal Exam: Normal bowel sounds. Soft. normal abdomen, no visible veins, Nontender. No hepatospenomegaly. No masses Ankle Exam: Negative ankle edema Lower extremities: Negative lower extremity edema Upper extremities: no tenderness, normal strength, normal ROM Neuro/Mental Status: A&O x4. Coherent. Thoughts/Psych: Normal thought pattern. Appropriate mood and affect. Good judgement and insight Skin Exam: Normal inspection. Normal color. Warm. Dry laboratory and microbiology Laboratory Tests 06/23/25 06:10 Test 06/23/25 06:10 Range/Units Serum Glucose 106 74-106 mg/dL Microbiology Date/Time Source Procedure Growth Status 06/23/25 00:52 Nose MRSA Screen - Final Complete 06/22/25 12:15 Blood Blood Culture - Preliminary NO GROWTH AFTER 24 HOURS OF INCUBATION. Resulted Labs and/or images reviewed: Labs reviewed by me, Image(s) reviewed by me Problem List/Assessment/Plan Problem List/Assessment/Plan #SIRS, unknown etiology -HR 103, WBC 13.8 -Chest x-ray shows no acute cardiopulmonary disease -blood culture-no growth after 24 hrs -UA normal -ceftriaxone 1 g IV daily -pain management with acetaminophen 650 mg p.o. q.6 PRN, [place] 5/325 mg p.o. q.4 PRN -Zofran 4 mg IV q.4 PRN -ESR 91, CRP 6.27 -D-dimer 1.48 -Doppler of bilateral extremity reveals no right or left femoral-popliteal venous thrombosis -ordered GERMAN,pending #NSTEMI type 2 #Ischemic cardiomyopathy (EF 38%) s/p CABG and 5 stents and recent PCI: #CHF, systolic dysfunction, HFrEF 38%, not under acute exacerbation #hypertension #hyperlipidemia -last echo done on 05/02/2025 -troponins down trending 99> 93> 73 -BNP 121.16 -EKG sinus rhythm, borderline T abnormalities diffuse leads -Telemetry -metoprolol tartrate 25 mg p.o. daily -Atorvastatin 80 mg p.o. daily -losartan /hydrochlorothiazide 100/12.5 mg daily -aspirin 81 mg p.o. daily -Clopidogrel 75 mg p.o. daily -CT angio with contrast of the chest- no PE Stress testing deferred given recent PCI (1 week ago) and down-trending biomarkers. Recommend outpatient ischemia evaluation, 46 weeks post-PCI or earlier if new symptoms develop. Repeat echocardiogram if any new heart failure symptoms occur. #Bilateral shoulder pain, likely musculoskeletal -pain management with acetaminophen 650 mg p.o. q.6 PRN, [place] 5/325 mg p.o. q.4 PRN -bilateral shoulder xrays normal #hypokalemia -Repleted # questionable history of COPD, not on exacerbation -monitor patient -consider med nebulizations if required DVT prophylaxis: Lovenox 40 mg subcutaneous daily scheduled Diet: cardiac diet Goals of care discussed with the patient for more than 27 minutes: Full code status Plan discussed with Dr Serna Plan discussed with: Patient My Orders My Orders Orders - DOMONIQUE NELSON Procedure Category Date Status Time * Cardiology Consult CONS 06/23/25 Transmitted 12:26 Date of Service: Jun 23, 2025 Billing Provider: VIKAS SERNA MD Common Visit Codes: [id number] INP/OBS CARE(HIGH) DOMONIQUE NELSON RESIDENT Jun 23, 2025 17:10 VIKAS SERNA MD Jun 24, 2025 22:42
--- NOTE | 2025-06-23 23:56 | DVHINCON2 ---
Date Seen: Jun 23, [address] An Reason for Consultation NSTEMI History of Present Illness This is a 64-year-old male with a PMH of CAD s/p CABG (4x grafts, 2014), hypertension, and hyperlipidemia. The patient presents with right shoulder discomfort. He is a poor historian but reports bilateral arm pain for four days, now localized to bilateral shoulders. He denies active chest pain, dyspnea, orthopnea, palpitations, or functional decline. He underwent coronary angiography about a year ago that showed three patent grafts: LIMALAD (not fully interrogated but presumed patent), SVGOM, and SVGR PDA; [place] coronaries had CTOs. No intervention was performed then. The patient reports stent placement in [place] one week ago (records unavailable). On admission, troponins trended 99 - 93 - 73 ng/L. ESR and WBC were elevated. EKG shows no new ischemic changes. Echocardiogram (Apr 2025) demonstrated EF 38% with moderate LV systolic dysfunction and apical hypokinesis. He is currently hemodynamically stable and chest-pain free. Chest x-ray showed NAD. Patient was admitted to the hospital. I am asked to consult on this patient. Family History: Cardiovascular disease G8 MOTHER Family history: Arthritis G8 FATHER, Onset:50s - 60 Family history: Osteoporosis G8 MOTHER, Onset:50s - 60 Hypertension G8 MOTHER Allergies: Coded Allergies: NO KNOWN ALLERGIES (Unverified , 01/24/11) Home Meds Active Scripts Furosemide (Lasix) 40 Mg Tab, 40 MG PO DAILY for 20 Days, #20 TAB Prov:VIKAS SERNA MD 05/04/25 Losartan Potassium & Hydrochlo (Losartan Potassium/Hydroc) 1 Tab Tab, 1 TAB PO DAILY for 90 Days, #90 TAB 2 Refills [Losartan/hydrochlorothiazide 100/12.5 mg] Prov:CECE SANDOVAL DO 01/16/24 Metoprolol Tartrate (Lopressor) 25 Mg Tb, 1 TAB PO DAILY for 90 Days, #90 TAB 2 Refills Prov:CECE SANDOVAL DO 01/16/24 Clopidogrel Bisulfate (Plavix) 75 Mg Tab, 75 MG PO DAILY for 90 Days, #90 TAB 3 Refills Prov:CECE SANDOVAL DO 01/16/24 Atorvastatin Calcium (ATORVASTATIN CALCIUM) 80 Mg Tab, 80 MG PO DAILY for 90 Days, #90 TAB 2 Refills Prov:CECE SANDOVAL DO 01/16/24 Aspirin (Aspirin Low Dose) 81 Mg Tab, 81 MG PO DAILY for 90 Days, #90 TAB 2 Refills Prov:CECE SANDOVAL DO 01/16/24 Current Medications Current Medications Medications (Trade) Dose Ordered Sig/Terry Route PRN Reason Start Time Stop Time Status Last Admin Acetaminophen/ Hydrocodone Bitart ([place] 5/325MG Tab) 1 tab Q4HP PRN PO MODERATE PAIN (4-6 PAIN SCALE) 06/22/25 20:45 06/23/25 09:47 Ondansetron HCl (Zofran) 4 mg Q4HP PRN IV NAUSEA / VOMITING 06/22/25 20:45 Acetaminophen (Tylenol Tablet) 650 mg Q6HP PRN PO PAIN SCALE 1-3 OR TEMP>100.4 06/22/25 20:45 Aspirin (Ecotrin Enteric Coated Tablet) 81 mg DAILY PO 06/23/25 10:00 06/23/25 09:11 Clopidogrel Bisulfate (Plavix) 75 mg DAILY PO 06/23/25 10:00 06/23/25 09:11 Metoprolol Succinate (Toprol Xl) 25 mg DAILY PO 06/23/25 10:00 06/23/25 09:10 Patient Own Medication 80 mg DAILY PO 06/23/25 10:00 06/22/25 21:09 DC Patient Own Medication 1 tab DAILY PO 06/23/25 10:00 06/22/25 22:04 DC Enoxaparin Sodium (Lovenox) 40 mg DAILY SC 06/23/25 10:00 Ceftriaxone Sodium 50 ml @ 100 mls/hr DAILY@09 IV 06/23/25 09:00 06/23/25 09:07 Losartan Potassium (Cozaar Tablet) 100 mg DAILY PO 06/23/25 10:00 06/23/25 09:08 Hydrochlorothiazide (hydroCHLOROthiazide TABLET) 12.5 mg DAILY PO 06/23/25 10:00 06/23/25 09:09 Hydromorphone HCl (Dilaudid Injection) 0.25 mg Q4HPRN PRN IV SEVERE PAIN (7-10 PAIN SCALE) 06/23/25 03:15 06/23/25 03:48 Review of Systems ROS: Negative for chest pain, dyspnea, palpitations, syncope, orthopnea, PND. Positive for bilateral shoulder pain. Vital Signs Vital Signs Date Time Temp Pulse Resp B/P (MAP) Pulse Ox O2 Delivery O2 Flow Rate FiO2 06/23/25 16:50 97.1 88 18 151/84 (106) 99 97.1 06/23/25 08:00 Room Air* 0 21 Physical Exam GENERAL: Alert and oriented x 3. No acute distress. EYES: PERRL, EOMI. Anicteric. HENT: Moist mucous membranes. LUNGS: Clear to auscultation bilaterally. CARDIOVASCULAR: Regular rate and rhythm. ABDOMEN: Soft, nontender and nondistended. EXTREMITIES: No edema. NEUROLOGIC: No focal neurological deficits. SKIN: Warm, dry. Labs/Diagnostic Data Labs Test 06/23/25 14:07 06/23/25 06:10 06/23/25 03:54 06/22/25 21:40 Range/Units White Blood Count 13.8 H 4.4-10.8 10^3/uL Red Blood Count 3.75 L 4.5-5.90 10^6/uL Hemoglobin 10.5 L 13.5-17.5 g/dL Hematocrit 30.2 #L 41.0-53.0 % Mean Corpuscular Volume 80.5 80.0-100.0 fL Mean Corpuscular Hemoglobin 28.0 28.0-32.0 pg Mean Corpuscular Hemoglobin Concent 34.7 32.0-36.0 g/dL Red Cell Distribution Width 15.9 H 11.8-14.3 % Platelet Count 470 H 140-450 10^3/uL Mean Platelet Volume 7.1 6.9-10.8 fL Neutrophils (%) (Auto) 73.4 37.0-80.0 % Lymphocytes (%) (Auto) 17.2 10.0-50.0 % Monocytes (%) (Auto) 7.3 0.0-12.0 % Eosinophils (%) (Auto) 1.9 0.0-7.0 % Basophils (%) (Auto) 0.2 0.0-2.0 % Neutrophils # (Auto) 10.1 H 1.6-8.6 10 ^3/uL Lymphocytes # (Auto) 2.4 0.4-5.4 10 ^3/uL Monocytes # (Auto) 1.0 0-1.3 10 ^3/uL Eosinophils # (Auto) 0.3 0-0.8 10 ^3/uL Basophils # (Auto) 0 0-0.2 10 ^3/uL Nucleated Red Blood Cells 0.0 % Sodium Level 139 136-145 mmol/L Potassium Level 3.6 3.5-5.1 mmol/L Chloride Level 103 98-107 mmol/L Carbon Dioxide Level 26 20-31 mmol/L Anion Gap 10 5-15 Blood Urea Nitrogen 8 L 9-23 mg/dL Creatinine 1.09 0.700-1.30 mg/dL Glomerular Filtration Rate Calc 75 >90 mL/min BUN/Creatinine Ratio 7.3 L 10.0-20.0 Serum Glucose 106 74-106 mg/dL Lactic Acid Level 0.9 0.4-2.0 mmol/L Calcium Level 9.0 8.7-10.4 mg/dL Total Bilirubin 0.4 0.2-1.0 mg/dL Aspartate Amino Transferase (AST) 35 13-40 U/L Alanine Aminotransferase (ALT) 25 7-40 U/L Alkaline Phosphatase 116 46-116 U/L Total Protein 7.5 5.7-8.2 g/dL Albumin 3.7 3.2-4.8 g/dL Urine Color Light-yellow Yellow Urine Clarity Clear Clear Urine pH 6.5 5.0-9.0 Urine Specific [place] > 1.050 H 1.001-1.035 Urine Protein Trace H Negative Urine Ketones Negative Negative Urine Blood Negative Negative /uL Urine Nitrite Negative Negative Urine Bilirubin Negative Negative Urine Urobilinogen Normal Negative mg/dL Urine Leukocyte Esterase Negative Negative /uL Urine RBC None seen 0 - 3 /hpf Urine Microscopic WBC 1 0-3 /HPF Urine Squamous Epithelial Cells Few <5 /hpf Urine Bacteria None seen None Seen /hpf Urine Glucose Normal Normal mg/dL Urine Opiates Screen Neg NEGATIVE Urine Fentanyl Screen Neg NEGATIVE Urine Barbiturates Screen Neg NEGATIVE Urine Phencyclidine Screen Neg NEGATIVE Urine Amphetamines Screen Neg NEGATIVE Urine Benzodiazepines Screen Neg NEGATIVE Urine Cocaine Screen Neg NEGATIVE Urine Cannabinoids Screen Neg NEGATIVE D-Dimer, Quantitative 1.46 H 0.0-0.49 mg/L FEU Magnesium Level 2.3 1.6-2.6 mg/dL Direct Bilirubin 0.2 <0.3 mg/dL Creatine Kinase 161 46-171 U/L C-Reactive Protein High Sensitivity 6.27 H <1.0 mg/dL Test 06/22/25 14:28 06/22/25 11:11 Range/Units Troponin I High Sensitivity 73 *H </=54 ng/L Erythrocyte Sedimentation Rate 91 H 0-20 mm/hr B-Type Natriuretic Peptide 121.16 0-100 pg/mL Microbiology Date/Time Source Procedure Growth Status 06/23/25 00:52 Nose MRSA Screen - Final Complete 06/22/25 12:15 Blood Blood Culture - Preliminary NO GROWTH AFTER 24 HOURS OF INCUBATION. Resulted Assessment NSTEMI type 2 . Ischemic cardiomyopathy (EF 38%) s/p CABG and recent PCI. SIRS unknown etiology. Bilateral shoulder pain. HTN. HLD. Plan/Recommendation I agree with your ongoing assessment and care of plan. Patient has been seen by Gladys Arana Resident on my behalf, we have discussed the plan with the patient No ongoing chest pain or EKG changes. Troponins downtrending. Obtain outside PCI report for graft and stent details. Continue GDMT. Optimize volume status and continue telemetry monitoring. Stress testing deferred given recent PCI (1 week ago) and down-trending biomarkers. Recommend outpatient ischemia evaluation, 46 weeks post-PCI or earlier if new symptoms develop. Repeat echocardiogram if any new heart failure symptoms occur. Continue inpatient work up per Primary team. Likely musculoskeletal; not typical of angina. Symptomatic treatment; re-evaluate if cardiac symptoms recur. Continue medical therapy; optimize blood-pressure control and lipid management. Continue telemetry monitoring during hospitalization. Arrange outpatient cardiology follow-up post-discharge for ischemia evaluation and review of outside PCI records. Additional plan as per the hospital course. Plan discussed with: Patient NYHA Physical activity limitations: NA Date of Service: Jun 23, 2025 Billing Provider: PA HILTON MD Cardiology Common Codes: [id number] INP/OBS CARE (High), [id number] CARE 30-74 MIN, [id number] CARE-EACH +30MIN PA HILTON MD Jun 23, 2025 18:12
[2025-06-24 01:00] VITALS: PULSE 0; TEMP 98.4
[2025-06-24 05:00] VITALS: BP 130/80; PULSE 99; RESP 18; TEMP 98.6; O2SAT 96
[2025-06-24 06:34] LABS: Hematocrit 31.4 % (41.0-53.0); Hemoglobin 10.8 g/dL (13.5-17.5); Mean Corpuscular Hemoglobin 27.7 pg (28.0-32.0); Mean Corpuscular Volume 80.8 fL (80.0-100.0); Nucleated Red Blood Cells % 0.0 %
[2025-06-24 06:42] LABS: Anion Gap 10 (5-15); Calcium 9.4 mg/dL (8.7-10.4); Carbon Dioxide 25 mmol/L (20-31); Chloride 103 mmol/L (98-107); Potassium 3.9 mmol/L (3.5-5.1); Sodium 138 mmol/L (136-145)
[2025-06-24 06:49] LABS: BUN/Creatinine Ratio 7.5 (10.0-20.0)
[2025-06-24 06:52] LABS: Blood Urea Nitrogen 8 mg/dL (9-23); Glucose 116 mg/dL (74-106)
[2025-06-24 08:00] VITALS: PULSE 102
[2025-06-24 09:00] VITALS: BP 130/93; PULSE 91; RESP 18; TEMP 97.7; O2SAT 97
--- NOTE | 2025-06-24 10:43 | DVHPNRES ---
Progress Note Date Seen: Jun 24, 2025 Resident Creating Document: FRANK PERRY RESIDENT Medical Necessity Reason Pt with a Central, PICC or Fol: No Subjective Review of Systems 64-year-old male with PMHx significant for CAD s/p CABG (4x grafts, 2014), hypertension, and hyperlipidemia. The patient presents with right shoulder discomfort. He is a poor historian but reports bilateral arm pain for four days, now localized to bilateral shoulders. He denies active chest pain, dyspnea, orthopnea, palpitations, or functional decline. He underwent coronary angiography about a year ago that showed three patent grafts: LIMALAD (not fully interrogated but presumed patent), SVGOM, and SVGR PDA; [place] coronaries had CTOs. No intervention was performed then. The patient reports stent placement in [place] one week ago (records unavailable). On admission, troponins trended 99 - 93 - 73 ng/L. ESR and WBC were elevated. EKG shows no new ischemic changes. Echocardiogram (Apr 2025) demonstrated EF 38% with moderate LV systolic dysfunction and apical hypokinesis. He is currently hemodynamically stable and chest-pain free. PMHx: CAD s/p CABG (4 grafts, 2014), HTN, HLD, COPD PSHx: CABG 4 (2014); PCI (1 wk ago, [place] records pending). Social: Lives in a hotel temporarily; planning to move to [place]. Denies tobacco or drug use. Occasional alcohol. Family: Non-contributory. 06/24/25: chest pain stable, no acute complaints Objective vital signs Vital Sign Date Time Temp Pulse Resp B/P (MAP) Pulse Ox O2 Delivery O2 Flow Rate FiO2 06/24/25 09:00 97.7 91 18 130/93 (105) 97 97.7 06/24/25 08:00 Room Air* 0 21 Total Intake and Output 06/23/25 06/23/25 06/24/25 15:00 23:00 07:00 Intake Total 1540 ml 600 ml Output Total 400 ml 400 ml Balance 1140 ml 200 ml medications Current Medications Medications Dose Ordered Sig/Terry Route Start Time Stop Time Status Last Admin Dose Admin Acetaminophen/ Hydrocodone Bitart 1 tab Q4HP PRN PO 06/22/25 20:45 06/24/25 08:12 1 TAB Ondansetron HCl 4 mg Q4HP PRN IV 06/22/25 20:45 Acetaminophen 650 mg Q6HP PRN PO 06/22/25 20:45 Aspirin 81 mg DAILY PO 06/23/25 10:00 06/23/25 09:11 81 MG Clopidogrel Bisulfate 75 mg DAILY PO 06/23/25 10:00 06/23/25 09:11 75 MG Metoprolol Succinate 25 mg DAILY PO 06/23/25 10:00 06/23/25 09:10 25 MG Enoxaparin Sodium 40 mg DAILY SC 06/23/25 10:00 Ceftriaxone Sodium 50 ml @ 100 mls/hr DAILY@09 IV 06/23/25 09:00 06/23/25 09:07 100 MLS/HR Losartan Potassium 100 mg DAILY PO 06/23/25 10:00 06/23/25 09:08 100 MG Hydrochlorothiazide 12.5 mg DAILY PO 06/23/25 10:00 06/23/25 09:09 12.5 MG Hydromorphone HCl 0.25 mg Q4HPRN PRN IV 06/23/25 03:15 06/24/25 01:01 0.25 MG Examination Gen Alert, no acute distress. CV Regular rate and rhythm, no murmurs/rubs/gallops, no JVD. Lungs Clear bilaterally. Abd Soft, NT, ND. Ext No edema, pulses 2+ bilaterally. Neuro Grossly intact. laboratory and microbiology Laboratory Tests 06/24/25 04:56 Test 06/24/25 04:56 Range/Units Serum Glucose 116 H 74-106 mg/dL Microbiology Date/Time Source Procedure Growth Status 06/23/25 00:52 Nose MRSA Screen - Final Complete 06/22/25 12:15 Blood Blood Culture - Preliminary NO GROWTH AFTER 24 HOURS OF INCUBATION. Resulted Problem List/Assessment/Plan Problem List/Assessment/Plan NSTEMI type 2 Ischemic cardiomyopathy (EF 38%) s/p CABG and recent PCI: No ongoing chest pain or EKG changes. Troponins downtrending. Obtain outside PCI report for graft and stent details: patient brought some paper, he was dc on [place] but we couldnt get the official report of the PCI, he is advised to continue as outpatient with DAPT Continue GDMT: jardiance and spironolactone is added Stress testing deferred given recent PCI (1 week ago) and down-trending biomarkers. Recommend outpatient ischemia evaluation, 46 weeks post-PCI or earlier if new symptoms develop. Repeat echocardiogram if any new heart failure symptoms occur. SIRS unknown etiology Continue inpatient work up per Primary team Bilateral shoulder pain: Likely musculoskeletal; not typical of angina. Symptomatic treatment; re-evaluate if cardiac symptoms recur. HTN, HLD: Continue medical therapy; optimize blood-pressure control and lipid management. Disposition: Continue telemetry monitoring during hospitalization. Arrange outpatient cardiology follow-up post-discharge for ischemia evaluation and review of outside PCI records. Case discussed with Dr Hilton Time spent on critical care 71 min Plan discussed with: Patient, Other (rn) Visit Coding Cardiology RES Date of Service: Jun 24, 2025 Billing Provider: PA HILTON MD Cardiology Common Codes: [id number] CARE 30-74 MIN FRANK PERRY RESIDENT Jun 24, 2025 10:43 PA HILTON MD Jun 24, 2025 14:58
[2025-06-24] MEDS: SPIRONOLACTONE 25 MG TAB PO SCH (10:45)
[2025-06-24] MEDS: EMPAGLIFLOZIN 10 MG TAB PO SCH (10:45)
[2025-06-24] MEDS ORDERED: HYDR-4902 PO (12:48)
[2025-06-24 12:58] VITALS: BP 130/93; PULSE 91; TEMP 36.5
[2025-06-24 14:32] VITALS: BP 132/85; PULSE 85; RESP 18; TEMP 98; O2SAT 98
--- NOTE | 2025-06-24 16:05 | DVHDSRES ---
Discharge Summary Date of Admission Resident Creating Document: DOMONIQUE NELSON RESIDENT Jun 22, 2025 at 20:33 Date of Discharge: Jun 24, 2025 Admitting Diagnosis Sepsis Labs/Diagnostic Data: Laboratory Results Test 06/24/25 04:56 06/23/25 14:07 06/23/25 06:10 06/23/25 03:54 White Blood Count 11.8 10^3/uL (4.4-10.8) Red Blood Count 3.89 10^6/uL (4.5-5.90) Hemoglobin 10.8 g/dL (13.5-17.5) Hematocrit 31.4 % (41.0-53.0) Mean Corpuscular Volume 80.8 fL (80.0-100.0) Mean Corpuscular Hemoglobin 27.7 pg (28.0-32.0) Mean Corpuscular Hemoglobin Concent 34.3 g/dL (32.0-36.0) Red Cell Distribution Width 16.4 % (11.8-14.3) Platelet Count 472 10^3/uL (140-450) Mean Platelet Volume 7.1 fL (6.9-10.8) Neutrophils (%) (Auto) 72.6 % (37.0-80.0) Lymphocytes (%) (Auto) 18.7 % (10.0-50.0) Monocytes (%) (Auto) 6.4 % (0.0-12.0) Eosinophils (%) (Auto) 1.9 % (0.0-7.0) Basophils (%) (Auto) 0.4 % (0.0-2.0) Neutrophils # (Auto) 8.6 10 ^3/uL (1.6-8.6) Lymphocytes # (Auto) 2.2 10 ^3/uL (0.4-5.4) Monocytes # (Auto) 0.7 10 ^3/uL (0-1.3) Eosinophils # (Auto) 0.2 10 ^3/uL (0-0.8) Basophils # (Auto) 0 10 ^3/uL (0-0.2) Nucleated Red Blood Cells 0.0 % Sodium Level 138 mmol/L (136-145) Potassium Level 3.9 mmol/L (3.5-5.1) Chloride Level 103 mmol/L (98-107) Carbon Dioxide Level 25 mmol/L (20-31) Anion Gap 10 (5-15) Blood Urea Nitrogen 8 mg/dL (9-23) Creatinine 1.06 mg/dL (0.700-1.30) Glomerular Filtration Rate Calc 77 mL/min (>90) BUN/Creatinine Ratio 7.5 (10.0-20.0) Serum Glucose 116 mg/dL (74-106) Calcium Level 9.4 mg/dL (8.7-10.4) Anti-Nuclear Antibody Screen Negative (Negative) Lactic Acid Level 0.9 mmol/L (0.4-2.0) Total Bilirubin 0.4 mg/dL (0.2-1.0) Aspartate Amino Transferase (AST) 35 U/L (13-40) Alanine Aminotransferase (ALT) 25 U/L (7-40) Alkaline Phosphatase 116 U/L (46-116) Total Protein 7.5 g/dL (5.7-8.2) Albumin 3.7 g/dL (3.2-4.8) Urine Color Light-yellow (Yellow) Urine Clarity Clear (Clear) Urine pH 6.5 (5.0-9.0) Urine Specific [place] > 1.050 (1.001-1.035) Urine Protein Trace (Negative) Urine Ketones Negative (Negative) Urine Blood Negative /uL (Negative) Urine Nitrite Negative (Negative) Urine Bilirubin Negative (Negative) Urine Urobilinogen Normal mg/dL (Negative) Urine Leukocyte Esterase Negative /uL (Negative) Urine RBC None seen /hpf (0 - 3) Urine Microscopic WBC 1 /HPF (0-3) Urine Squamous Epithelial Cells Few /hpf (<5) Urine Bacteria None seen /hpf (None Seen) Urine Glucose Normal mg/dL (Normal) Urine Opiates Screen Neg (NEGATIVE) Urine Fentanyl Screen Neg (NEGATIVE) Urine Barbiturates Screen Neg (NEGATIVE) Urine Phencyclidine Screen Neg (NEGATIVE) Urine Amphetamines Screen Neg (NEGATIVE) Urine Benzodiazepines Screen Neg (NEGATIVE) Urine Cocaine Screen Neg (NEGATIVE) Urine Cannabinoids Screen Neg (NEGATIVE) Test 06/22/25 21:40 06/22/25 14:28 06/22/25 11:11 D-Dimer, Quantitative 1.46 mg/L FEU (0.0-0.49) Magnesium Level 2.3 mg/dL (1.6-2.6) Direct Bilirubin 0.2 mg/dL (<0.3) Creatine Kinase 161 U/L (46-171) C-Reactive Protein High Sensitivity 6.27 mg/dL (<1.0) Troponin I High Sensitivity 73 ng/L (</=54) Erythrocyte Sedimentation Rate 91 mm/hr (0-20) B-Type Natriuretic Peptide 121.16 pg/mL (0-100) Other Laboratory Tests 06/24/25 04:56 Brief Hx & Hospital Course: Sarmad Diop is a 64-year old male with a past medical history of CAD s/p CABG and SC with 5 stents placed (the last being placed 1 week back in [place]), hyperlipidemia, hypertension and osteoarthritis to the ER with chief complaint of bilateral arm pain for 4 days. Patient described the pain as aching, 10/10 on intensity, bilateral shoulders and radiating down his arms. He denied any chest pain, nausea, vomiting, fever, chills and palpitations. He had slight shortness of breath on and off. On admission, troponins trended 99 - 93 - 73 ng/L. ESR and WBC were elevated. EKG showed no new ischemic changes. Echocardiogram (Apr 2025) demonstrated EF 38% with moderate LV systolic dysfunction and apical hypokinesis. Cardiology evaluated the patient and recommended outpatient ischemia evaluation, 4 to 6 weeks post PCI earlier if new symptoms develop. Bilateral shoulder x-ray, chest x-ray, CT angiography, bilateral venous study of upper extremities were normal. GERMAN level was negative. Patient was discharged home in a stable condition on Zanoni 5. All medications and recommendations were thoroughly explained to the patient and he demonstrated understanding of the same. Patient was asked to follow up with Cardiology in 4- 6 weeks with his past medical records. Past medical history:CAD s/p CABG and SC with 5 stents placed (the last being placed 1 week back in [place]), hyperlipidemia, hypertension, osteoarthritis Past surgical history: CABG 4 (2014); PCI (1 wk ago, [place] records pending) Family history: Mother, grandmother,aunt all due to SC Social & Personal history: Currently lives in a hotel temporarily, planning to move to [place] Smoking: Denies Alcohol: Occasional use Drugs: Denies Allergies: no known allergies General Appearance: Cooperative. Well developed. Well nourished. NAD Head Exam: Normal inspection Neck Exam: Normal inspection. Non-tender. Normal alignment Pulmonary/Respiratory: Chest non-tender. Clear bilateral breath sounds, no crackles, no wheezing. Cardiovascular/Chest: Regular rate and rhythm. No murmurs. No JVD. Peripheral Pulses: 2+ Radial (R). 2+ Radial (L). 2+ Pedal (R). 2+ Pedal (L) Abdominal Exam: Normal bowel sounds. Soft. normal abdomen, no visible veins, Nontender. No hepatospenomegaly. No masses Ankle Exam: Negative ankle edema Lower extremities: Negative lower extremity edema Upper extremities: no tenderness, normal strength, normal ROM Neuro/Mental Status: A&O x4. Coherent. Thoughts/Psych: Normal thought pattern. Appropriate mood and affect. Good judgement and insight Skin Exam: Normal inspection. Normal color. Warm. Operations or Procedures 1.PROCEDURE(s): CXR1 - CHEST XRAY 1 VIEW REASON: sob ORDER NUMBER(s): [id number], ACCESSION NUMBER(s): [id number] CHEST RADIOGRAPH Indication: sob Technique: Single frontal view of the chest was obtained Comparison: XY CHEST XRAY 1 VIEW on DOS: 05/02/25, XY CHEST PORTABLE on DOS: 01/14/24, CHEST PORTABLE on DOS: 08/01/21 FINDINGS: Lines and Tubes: None Lungs: No focal consolidation. Pleura: No effusion. No pneumothorax. Cardiomediastinal contours: Unremarkable Bones: No acute osseous abnormality. IMPRESSION: 1. No acute cardiopulmonary disease. 2. No significant change from 05/02 2025. 2.PROCEDURE(s): CTACH - CT ANGIO CHEST CONTRAST REASON: chest pain, recent stent placed ORDER NUMBER(s): [id number], ACCESSION NUMBER(s): [id number] CTA Chest with intravenous contrast INDICATION: chest pain, recent stent placed COMPARISON: Previous study chest radiograph TECHNIQUE: Multidetector spiral CTA of the chest was performed of the chest with intravenous contrast. PULMONARY ANGIOGRAPHY PROTOCOL was utilized using a bolus- tracking technique centered on the main pulmonary artery. Axial, coronal and sagittal multiplanar and MIP reformats were performed. Radiation Dose : 1. Chest: CTDI volume is 24.47 mGy. Dose-length product is 934.93 mGy*cm The dose indicators for CT are the volume Computed Tomography (CT) Dose Index (CTDIvol) and the Dose Length Product (DLP), and are measured in units of mGy and mGy-cm, respectively. These indicators are not patient dose, but values generated from the CT scanner acquisition factors. The report includes radiation exposure data for exposures received during this examination. Findings: Pulmonary arteries: Technical factors adequate for assessment of the level of the proximal subsegmental arteries. No visualized filling defect. Central arteries are normal in caliber. Lower neck: Unremarkable. Lungs: No focal consolidation. Pleura: Normal. Heart/Vascular Structures: Normal heart size with post CABG change. No pericardial effusion. Mild aortic and branch vessel atherosclerosis. Lymph Nodes: No adenopathy Musculoskeletal: No acute abnormality. Degenerative change of the thoracic spine. Uncomplicated sternotomy hardware. Partially imaged lumbar spine postsurgical change. Soft tissues: Unremarkable. Upper abdomen: No acute abnormality. IMPRESSION: 1. No pulmonary embolism to the level of the proximal subsegmental arteries. 2. No acute thoracic finding. 3.PROCEDURE(s): BLDVT - BiLat Lower DVT REASON: eval for dvt ORDER NUMBER(s): [id number], ACCESSION NUMBER(s): [id number] Bilateral lower extremity venous duplex Clinical History: eval for dvt Comparison: US BILAT LOWER DVT on DOS: 05/03/25 Technique: Duplex Doppler evaluation of the deep venous systems of both lower extremities from the common femoral veins to the popliteal veins including color Doppler and spectral/pulsed waveform analysis was performed. Findings: RIGHT SIDE: The common femoral vein demonstrates appropriate compressibility and waveform variability. There is compressibility/patency of the great saphenous vein at the proximal thigh. The femoral vein demonstrates appropriate compressibility and waveform variability. The deep femoral vein demonstrates appropriate compressibility and waveform variability. The popliteal vein demonstrates appropriate compressibility and waveform variability. There is normal compressibility at the tibioperoneal trunk. LEFT SIDE: The common femoral vein demonstrates appropriate compressibility and waveform variability. There is compressibility/patency of the great saphenous vein at the proximal thigh. The femoral vein demonstrates appropriate compressibility and waveform variability. The deep femoral vein demonstrates appropriate compressibility and waveform variability. The popliteal vein demonstrates appropriate compressibility and waveform variability. There is normal compressibility at the tibioperoneal trunk. Impression: 1. No right or left femoropopliteal venous thrombosis. 4.PROCEDURE(s): BUDVT - Bi Lat Upper DVT REASON: pain ORDER NUMBER(s): [id number], ACCESSION NUMBER(s): [id number] Bilateral Upper Extremity Venous Duplex Date: 06/23/2025 08:20 AM Clinical History: pain Comparison: US BILAT LOWER DVT on DOS: 06/22/25, US BILAT LOWER DVT on DOS: 05/03/25 Findings: Duplex Doppler evaluation of the venous systems of the right and left lower neck and upper extremities including color Doppler and spectral/pulsed waveform analysis was performed. RIGHT SIDE: The internal jugular vein demonstrates appropriate compressibility and waveform variability. The subclavian vein is patent on color Doppler evaluation without intraluminal thrombus and demonstrates waveform variability. The visualized portion of the brachiocephalic vein is patent on color Doppler evaluation without intraluminal thrombus and demonstrates waveform variability. The axillary vein demonstrates appropriate compressibility and waveform variability. The brachial veins demonstrate appropriate compressibility and patency on Doppler evaluation. The basilic vein demonstrates appropriate compressibility and patency on Doppler evaluation. The cephalic vein demonstrates thrombus. LEFT SIDE: The internal jugular vein demonstrates appropriate compressibility and waveform variability. The subclavian vein is patent on color Doppler evaluation without intraluminal thrombus and demonstrates waveform variability. The visualized portion of the brachiocephalic vein is patent on color Doppler evaluation without intraluminal thrombus and demonstrates waveform variability. The axillary vein demonstrates appropriate compressibility and waveform variability. The brachial veins demonstrate appropriate compressibility and patency on Doppler evaluation. The basilic vein demonstrates appropriate compressibility and patency on Doppler evaluation. The cephalic vein demonstrates thrombus. IMPRESSION: No venous thrombus identified in the right or left upper extremity vessels evaluated above. If clinical concern/symptoms persist or worsen, short-interval follow-up study is suggested. 5.PROCEDURE(s): RSHD - R SHOULDER 1V XRAY REASON: pain ORDER NUMBER(s): [id number], ACCESSION NUMBER(s): [id number] CLINICAL INDICATION: pain TECHNIQUE: 1 radiographic views of the right shoulder were obtained. Comparison: XY L SHOULDER 1V XRAY on DOS: 06/23/25 FINDINGS/IMPRESSION: There is no evidence of acute fracture or dislocation. The visualized joint space is well maintained. The alignment is anatomical. There is no radiopaque foreign body. 6.PROCEDURE(s): LSHD - L SHOULDER 1V XRAY REASON: pain ORDER NUMBER(s): [id number], ACCESSION NUMBER(s): [id number] CLINICAL INDICATION: pain TECHNIQUE: 1 radiographic views of the left shoulder were obtained. Comparison: XY R SHOULDER 1V XRAY on DOS: 06/23/25 FINDINGS/IMPRESSION: There is no evidence of acute fracture or dislocation. The visualized joint space is well maintained. The alignment is anatomical. There is no radiopaque foreign body. Condition at Discharge: Fair Final Diagnosis/Problems List SIRS, unknown etiology NSTEMI type 2 Ischemic cardiomyopathy (EF 38%) s/p CABG and 5 stents and recent PCI Hypertensive heart disease with systolic dysfunction HFrEF 38%, not under acute exacerbation Hyperlipidemia Bilateral shoulder pain, likely musculoskeletal Hypokalemia,repleted Discharge Disposition: Home Discharge Instruct/Medications Diet: Cardiac 2g Na,low cholest Activity: No Restrictions, As Tolerated Follow Up/Referral: follow up with cardiology in 1-2 weeks Scheduled Aspirin (Aspirin Low Dose), 81 MG PO DAILY Atorvastatin Calcium (Atorvastatin Calcium), 80 MG PO DAILY Clopidogrel Bisulfate (Plavix), 75 MG PO DAILY Furosemide (Lasix), 40 MG PO DAILY Losartan Potassium & Hydrochlo (Losartan Potassium/Hydroc), 1 TAB PO DAILY Metoprolol Tartrate (Lopressor), 1 TAB PO DAILY Scheduled PRN Hydrocodone-Acetaminophen (Hydrocodone Bitartrate/AC 5-325 mg), 1 TAB PO Q4HP PRN Discharge Statement: "Patient was advised to return to the ER or call 911 if any headaches, dizziness, shortness of breath, chest pain, abdominal pain, bleeding, fevers, or worsening of medical condition. Patient was counseled about treatment plan, medications, possible side effects, patientverbalized understanding. All questions were answered to the best of my ability. This discharge took greater then 30 minutes in planning, reviewing documentation, counseling the patient, and discussing with other team members." ASSESSMENT ASSESSMENT Assessment SIRS, unknown etiology NSTEMI type 2 Ischemic cardiomyopathy (EF 38%) s/p CABG and 5 stents and recent PCI: CHF, systolic dysfunction, HFrEF 38%, not under acute exacerbation Hypertension,controlled Hyperlipidemia,controlled Bilateral shoulder pain, likely musculoskeletal Hypokalemia,repleted Date of Service: Jun 24, 2025 Billing Provider: VIKAS SERNA MD Common Visit Codes: 67819-HNA/OBS DISCH DAY >30min DOMONIQUE NELSON RESIDENT Jun 24, 2025 16:05 VIKAS SERNA MD Jun 24, 2025 22:46
--- NOTE | 2025-06-24 23:41 | DVHPN2 ---
Consult Progress Note Date Seen: Jun 24, 2025 Subjective Other Systems: Patient was seen and evaluated in follow up. Patient has no new complaints at this time. Stress testing deferred given recent PCI (1 week ago) and down-trending biomarkers. Recommend outpatient ischemia evaluation, 46 weeks post-PCI or earlier if new symptoms develop. Patient is cardiac stable for discharge. Telemetry reviewed. Objective vital signs Vital Sign Date Time Temp Pulse Resp B/P (MAP) Pulse Ox O2 Delivery O2 Flow Rate FiO2 06/24/25 14:32 98.0 85 18 132/85 (101) 98 98.0 06/24/25 08:00 Room Air* 0 21 Total Intake and Output 06/23/25 06/23/25 06/24/25 15:00 23:00 07:00 Intake Total 1540 ml 600 ml Output Total 400 ml 400 ml Balance 1140 ml 200 ml Examination: GENERAL:Normal, HEENT:Normal, NECK:Normal, LUNGS:Normal, CVS:Normal, ABDOMEN:Normal, MSK:Normal, SKIN:Normal, NEURO:Normal laboratory and microbiology Laboratory Tests 06/24/25 04:56 Test 06/24/25 04:56 Range/Units Serum Glucose 116 H 74-106 mg/dL Problem List/Assessment/Plan Problem List/Assessment/Plan Problem List NSTEMI type 2. Ischemic cardiomyopathy (EF 38%) s/p CABG and recent PCI. SIRS unknown etiology. Bilateral shoulder pain. HTN. HLD. Plan/Recommendation Continued all current supportive medical care. Patient has been seen by Gladys Arana Resident on my behalf, we have discussed the plan with the patient No ongoing chest pain or EKG changes. Troponins downtrending. Obtain outside PCI report for graft and stent details: patient brought some paper, he was dc on Brilinta but we couldnt get the official report of the PCI, he is advised to continue as outpatient with DAPT. Continue GDMT: jardiance and spironolactone is added. Stress testing deferred given recent PCI (1 week ago) and down-trending biomarkers. Recommend outpatient ischemia evaluation, 46 weeks post-PCI or earlier if new symptoms develop. Repeat echocardiogram if any new heart failure symptoms occur. Continue inpatient work up per Primary team. Symptomatic treatment; re-evaluate if cardiac symptoms recur. Continue medical therapy; optimize blood-pressure control and lipid management. Continue telemetry monitoring during hospitalization. Arrange outpatient cardiology follow-up post-discharge for ischemia evaluation and review of outside PCI records. Additional plan as per the hospital course. Plan discussed with: Patient Date of Service: Jun 24, 2025 Billing Provider: PA HILTON MD Cardiology Common Codes: [id number] [facility] PA HILTON MD Jun 24, 2025 15:20
== END 2025-06-24 14:30 | disposition home or self-care (01) | DRG 555 ==
LOC: ER 10:21 → OVERFLOW 20:33 → TELE-WESTW 23:45
PROVIDERS: ADMIT Internal Medicine; ATTEND Internal Medicine
DX: M25.512 Pain in left shoulder (principal); I21.A1 Myocardial infarction type 2; I50.22 Chronic systolic (congestive) heart failure; R65.10 Systemic inflammatory response syndrome (SIRS) of non-infectious origin without acute organ dysfunction; I11.0 Hypertensive heart disease with heart failure; J44.9 Chronic obstructive pulmonary disease, unspecified; I25.10 Atherosclerotic heart disease of native coronary artery without angina pectoris; R73.9 Hyperglycemia, unspecified; M25.511 Pain in right shoulder; E78.5 Hyperlipidemia, unspecified; E87.6 Hypokalemia; I25.5 Ischemic cardiomyopathy; D72.829 Elevated white blood cell count, unspecified; Z95.1 Presence of aortocoronary bypass graft; Z79.899 Other long term (current) drug therapy; Z98.61 Coronary angioplasty status; Z82.62 Family history of osteoporosis; Z82.49 Family history of ischemic heart disease and other diseases of the circulatory system; I25.2 Old myocardial infarction
CPT/HCPCS: 36415; 71045; 71275; 73020; 80048; 80053; 80076; 80307; 81001; 82550; 83605; 83735; 83880; 84484; 85025; 85379; 85652; 86038; 86141; 87040; 87081; 93005; 93970; 96365; 96366; 96372; 99291; 99292; G0378; J2543

== ENCOUNTER 2025-06-27 07:38 | Inpatient (IN) | payer SELFPAY ==
[~2025-06-27] VITALS: Ht 172.7 cm; Wt 80.2 kg
[~2025-06-27 07:38] MED LIST changes: +HYDR-4902 PO
[2025-06-27 08:30] LABS: Mean Corpuscular Volume 81.3 fL (80.0-100.0); Nucleated Red Blood Cells % 0.0 %
[2025-06-27 08:32] LABS: Hematocrit 37.8 % (41.0-53.0); Hemoglobin 12.7 g/dL (13.5-17.5); Mean Corpuscular Hemoglobin 27.3 pg (28.0-32.0)
--- NOTE | 2025-06-27 08:33 | ED.PDOC ---
HPI Comments 64-year old male with a past medical history of CAD s/p CABG and FL with 5 stents placed (the last being placed 2 weeks back in [place]), hyperlipidemia, hypertension and osteoarthritis presents to the ED via EMS for chief complaint of left-sided anterior chest pain that is radiating to his left arm. Patient reports he was seen at this hospital three days ago for the same complaint, states he was admitted for a couple days and then discharged. Patient reports the pain is intermediate, mostly present in the lying position and slightly improves at a sitting position. Patient took 3 x 81 mg aspirin prior to EMS arrival. Patient is currently living in a hotel as he is traveling from [place] to [place]. Patient mentions that he had an FL two weeks ago in [place] and had a stent placed. During his admission three days ago at this facility, patient was seen by prosthodontist/owner who evaluated him and per his discharge notes advice patient to arrange outpatient cardiology follow-up post-discharge for ischemia evaluation. Patient denies any nausea, vomiting, shortness a breath, fever, chills, leg swelling. He denies any substance, tobacco, or alcohol use Chief Complaint: Chest Pain Time Seen by MD: 07:43 Primary Care Provider: UNKNOWN Reviewed Notes: Nurses Notes, Insole Rasper Notes, Medications, Allergies Allergies: Coded Allergies: NO KNOWN ALLERGIES (Unverified , 01/24/11) Home Meds Active Scripts Hydrocodone-Acetaminophen (Hydrocodone Bitartrate/AC 5-325 mg) 1 Tab Tab, 1 TAB PO Q4HP PRN, #30 TAB Prov:VIKAS SERNA MD 06/24/25 Furosemide (Lasix) 40 Mg Tab, 40 MG PO DAILY for 20 Days, #20 TAB Prov:VIKAS SERNA MD 05/04/25 Losartan Potassium & Hydrochlo (Losartan Potassium/Hydroc) 1 Tab Tab, 1 TAB PO DAILY for 90 Days, #90 TAB 2 Refills [Losartan/hydrochlorothiazide 100/12.5 mg] Prov:CECE SANDOVAL DO 01/16/24 Metoprolol Tartrate (Lopressor) 25 Mg Tb, 1 TAB PO DAILY for 90 Days, #90 TAB 2 Refills Prov:CECE SANDOVAL DO 01/16/24 Clopidogrel Bisulfate (Plavix) 75 Mg Tab, 75 MG PO DAILY for 90 Days, #90 TAB 3 Refills Prov:CEEC SANDOVAL DO 01/16/24 Atorvastatin Calcium (ATORVASTATIN CALCIUM) 80 Mg Tab, 80 MG PO DAILY for 90 Days, #90 TAB 2 Refills Prov:CECE SANDOVAL DO 01/16/24 Aspirin (Aspirin Low Dose) 81 Mg Tab, 81 MG PO DAILY for 90 Days, #90 TAB 2 Refills Prov:CECE SANDOVAL DO 01/16/24 Information Source: Patient, Emergency Med Personnel Mode of Arrival: EMS Severity: Moderate Timing: Days Duration: Intermittent Prehospital treatment: 12 Lead EKG, Scrum Coach Location: Chest (L) Radiation: Arm (L) Quality: Sharp Onset: At Rest Cardiac Risk Factors: Hyperlipidemia, HTN PE Risk Factors: None History of: FL Past Medical History PAST MEDICAL HISTORY: Arthritis, CAD, COPD, High Lipids, HTN, FL Surgical History: CABG, PTCA Family History Family History: No family hx of HTN Social History Smoker: Non-Smoker Alcohol: Denies ETOH Use Drugs: Denies Drug Use Lives In: Home Constitutional: denies: chills, diaphoresis, fatigue, fever, malaise, sweats, weakness, others EENTM: denies: blurred vision, double vision, ear bleeding, ear discharge, ear drainage, ear pain, ear ringing, eye pain, eye redness, hearing loss, mouth pain, mouth swelling, nasal discharge, nose bleeding, nose congestion, nose pain, photophobia, tearing, throat pain, throat swelling, voice changes, others Respiratory: denies: cough, hemoptysis, orthopnea, SOB at rest, shortness of breath, SOB with excertion, stridor, wheezing, others Cardiovascular: reports: chest pain, left arm pain; denies: dizzy spells, diaphoresis, Dyspnea on exertion, edema, irregular heart beat, lightheadedness, palpitations, PND, syncope, others Gastrointestinal: denies: abdomen distended, abdominal pain, blood streaked bowels, constipated, diarrhea, dysphagia, difficulty swallowing, hematemesis, melena, nausea, poor appetite, poor fluid intake, rectal bleeding, rectal pain, vomiting, others Genitourinary: denies: burning, dysuria, flank pain, frequency, hematuria, incontinence, penile discharge, penile sore, pain, testicle pain, testicle swelling, urgency, others Neurological: denies: dizziness, fainting, headache, left sided numbness, left sided weakness, numbness, paresthesia, pre-existing deficit, right sided numbness, right sided weakness, seizure, speech problems, tingling, tremors, weakness, others Musculoskeletal: denies: back pain, gout, joint pain, joint swelling, muscle pain, muscle stiffness, neck pain, others Integumetry: denies: bruises, change in color, change in hair/nails, dryness, laceration, lesions, lumps, rash, wounds, others Allergic/Immunocompromised: denies: Difficulty Healing, Frequent Infections, Hives, Itching, others Hematologic/Lymphatic: denies: anemia, blood clots, easy bleeding, easy bruising, swollen glands, others Endocrine: denies: excessive hunger, excessive sweating, excessive thirst, excessive urination, flushing, intolerance to cold, intolerance to heat, unexplained weight gain, unexplained weight loss, others Psychiatric: denies: anxiety, bipolar disorder, depression, hopeless, panic disorder, schizophrenia, sleepless, suicidal, others All Other Systems: Reviewed and Negative Physical Exam General Appearance: Moderate Distress HEENT: Normal ENT Inspection, Pharynx Normal, TMs Normal Neck: Full Range of Motion, Non-Tender, Normal, Normal Inspection Respiratory: Chest Non-Tender, Lungs Clear, No Accessory Muscle Use, No Respiratory Distress, Normal Breath Sounds Cardiovascular: No Edema, No JVD, No Murmur, No Gallop, Normal Peripheral Pu lses, Regular Rate/Rhythm Breast Exam: Deferred Gastrointestinal: No Organomegaly, Non Tender, No Pulsatile Mass, Normal Bowel Sounds, Soft Genitalia: Deferred Pelvic: Deferred Rectal: Deferred Extremities: No calf tenderness, Normal capillary refill, Normal inspection, Normal range of motion, Non-tender, No pedal edema Musculoskeletal : Apperance: Normal Neurologic: Alert, office coordinator receptionist II-XII nml as Tested, No Motor Deficits, Normal Affect, Normal Mood, No Sensory Deficits Cerebellar Function: NOT DONE Reflexes: NOT DONE Skin: Dry, Normal Color, Warm Peripheral Pulses: 3+ Radial (R), 3+ Radial (L) Lymphatic: No Adenopathy EKG EKG : Pulse Rate (adult): 66 Cardiac Rhythm: NSR Was a procedure done? Was a procedure done?: No CP Differential Dx Differential Diagnosis: A-fib, A-Flutter, Angina, Anxiety / Panic Attack, Atrial Dysrhythmia, Electrolyte Disorder, N/A Differential Diagnosis: Angina, Chest Wall Pain, Cholelithiasis, Costochondritis, Myocardial Infarction, Pericarditis X-Ray, Labs, Meds, VS Vital Signs Date Time Temp Pulse Resp B/P (MAP) Pulse Ox O2 Delivery O2 Flow Rate FiO2 06/27/25 08:42 66 06/27/25 07:44 97.6 115 22 113/73 100 97.6 06/27/25 07:43 114 Lab Test 06/27/25 08:48 06/27/25 07:59 Range/Units Troponin I High Sensitivity 8 8 </=54 ng/L White Blood Count 12.7 H 4.4-10.8 10^3/uL Red Blood Count 4.65 4.5-5.90 10^6/uL Hemoglobin 12.7 #L 13.5-17.5 g/dL Hematocrit 37.8 #L 41.0-53.0 % Mean Corpuscular Volume 81.3 80.0-100.0 fL Mean Corpuscular Hemoglobin 27.3 L 28.0-32.0 pg Mean Corpuscular Hemoglobin Concent 33.6 32.0-36.0 g/dL Red Cell Distribution Width 16.1 H 11.8-14.3 % Platelet Count 627 H 140-450 10^3/uL Mean Platelet Volume 7.3 6.9-10.8 fL Neutrophils (%) (Auto) 70.6 37.0-80.0 % Lymphocytes (%) (Auto) 20.2 10.0-50.0 % Monocytes (%) (Auto) 7.4 0.0-12.0 % Eosinophils (%) (Auto) 1.1 0.0-7.0 % Basophils (%) (Auto) 0.7 0.0-2.0 % Neutrophils # (Auto) 9.0 H 1.6-8.6 10 ^3/uL Lymphocytes # (Auto) 2.6 0.4-5.4 10 ^3/uL Monocytes # (Auto) 0.9 0-1.3 10 ^3/uL Eosinophils # (Auto) 0.1 0-0.8 10 ^3/uL Basophils # (Auto) 0.1 0-0.2 10 ^3/uL Nucleated Red Blood Cells 0.0 % Sodium Level 137 136-145 mmol/L Potassium Level 4.3 3.5-5.1 mmol/L Chloride Level 98 98-107 mmol/L Carbon Dioxide Level 25 20-31 mmol/L Anion Gap 14 5-15 Blood Urea Nitrogen 23 9-23 mg/dL Creatinine 1.43 H 0.700-1.30 mg/dL Glomerular Filtration Rate Calc 54 >90 mL/min BUN/Creatinine Ratio 16.1 10.0-20.0 Serum Glucose 166 H 74-106 mg/dL Calcium Level 10.3 8.7-10.4 mg/dL B-Type Natriuretic Peptide 27.86 0-100 pg/mL [place] [id number] Ph: [phone] DIAGNOSTIC IMAGING Diagnostic Imaging Report : [id number] Signed PATIENT: OLGA ESPARZA ACCT: [id number] UNIT: [id number] : 1960 LOC: ER ROOM / BED: / AGE / SEX: 64 / M ADM STATUS: REG ER SERVICE 2 ORDERING PHYSICIAN: MAKEDA CURTIS MD PROCEDURE(s): CXRP - CHEST PORTABLE REASON: CP ORDER NUMBER(s): [id number], ACCESSION NUMBER(s): [id number] CHEST RADIOGRAPH Indication: CP Technique: Single frontal view of the chest was obtained Comparison: XY CHEST XRAY 1 VIEW on DOS: 06/22/25. FINDINGS: Lines and Tubes: None Lungs: No focal consolidation. Pleura: No effusion. No pneumothorax. Cardiomediastinal contours: Unremarkable Bones: No acute osseous abnormality. Status post median sternotomy. IMPRESSION: 1. No acute cardiopulmonary disease. ATED BY: RANDI PAIGE MD DICTATED DATE/TIME: 06/27/25841 SIGNED BY: RANDI PAIGE MD SIGNED DATE/TIME: 06/27/25841 CC: Patient alert. Came in because of chest pain. Was recently at this hospital. Vitals stable. Blood sugar elevated. WBC slightly elevated. Saturation pristine on room air. Continues to have chest pain. Explained to the patient. Continue monitoring. Time of 1ST Reevaluation: 08:42 Reevaluation 1ST: Unchanged Patient Education/Counseling: Diagnosis, Treatment, Prognosis Family Education/Counseling: No Family Present SEPSIS Sepsis Screen Date sepsis recognized/suspect: Jun 27, 2025 Time Sepsis recognized/suspect: 736 Recent Procedure: No On Antibiotic Therapy: No Respiratory Rate >20: No Heart Rate >90: Yes Temp<36 C (96.8 F) or >38.3 C: No SBP <90 or MAP <65 mmHG: No New Acute Mental Status Change: No Is the patient on CPAP, BIPAP,: No Physician Orders Chest Portable (06/27/25 07:43) Urinalysis (06/27/25 07:43) Electrocardigram (06/27/25 07:43) Troponin-I Hs (06/27/25 10:43) Electrocardigram (06/27/25 08:43) Electrocardigram (06/27/25 10:43) Vital Signs Date Time Temp Pulse Resp B/P (MAP) Pulse Ox O2 Delivery O2 Flow Rate FiO2 06/27/25 08:42 66 06/27/25 07:44 97.6 115 22 113/73 100 97.6 06/27/25 07:43 114 Laboratory Tests Test 06/27/25 07:59 White Blood Count 12.7 10^3/uL (4.4-10.8) H Departure 1 Departure Time of Disposition: 09:16 Impression: Primary Impression: Chest pain of unknown etiology Additional Impressions: HTN (hypertension) Qualified Codes: I10 - Essential (primary) hypertension Uncontrolled diabetes mellitus Qualified Codes: E13.65 - Other specified diabetes mellitus with hyperglycemia Disposition: ADMITTED INPATIENT Admit to: Med Surg Condition: Guarded Critical Care Note Critical Care Time?: No Stability Stability form required: No Heart Score Heart Score: Heart Score Response (Comments) Value History Highly Suspicious 2 EKG Normal 0 Age >65 2 Risk Factors >3 or Hx ASHD 2 Troponin Normal limit 0 Total 6 I personally scribed for MAKEDA CURTIS MD ([email or web address]) on 06/27/25 at 08:33. Electronically submitted by Pilar Silver ([facility] I personally scribed for MAKEDA CURTIS MD ([email or web address]) on 06/27/25 at 08:42. Electronically submitted by Pilar Silver ([facility]). I personally scribed for MAKEDA CURTIS MD ([email or web address]) on 06/27/25 at 10:34. Electronically submitted by Marco Aragon ([email or web address]). MAKEDA CURTIS MD Jun 27, 2025 08:33
[2025-06-27 08:43] LABS: Chloride 98 mmol/L (98-107); Potassium 4.3 mmol/L (3.5-5.1); Sodium 137 mmol/L (136-145)
[2025-06-27 08:44] LABS: Anion Gap 14 (5-15); Calcium 10.3 mg/dL (8.7-10.4); Carbon Dioxide 25 mmol/L (20-31)
--- NOTE | 2025-06-27 08:44 | DVH ---
CHEST RADIOGRAPH Indication: CP Technique: Single frontal view of the chest was obtained Comparison: XY CHEST XRAY 1 VIEW on DOS: 06/22/25. FINDINGS: Lines and Tubes: None Lungs: No focal consolidation. Pleura: No effusion. No pneumothorax. Cardiomediastinal contours: Unremarkable Bones: No acute osseous abnormality. Status post median sternotomy. IMPRESSION: 1. No acute cardiopulmonary disease.
[2025-06-27 08:49] LABS: BUN/Creatinine Ratio 16.1 (10.0-20.0)
[2025-06-27 08:53] LABS: Blood Urea Nitrogen 23 mg/dL (9-23); Glucose 166 mg/dL (74-106)
[2025-06-27] MEDS ORDERED: MORPHINE SULFATE INJ 2 MG/ml SYRG IV PRN (09:45)
[2025-06-27] MEDS ORDERED: ACETAMINOPHEN 325 MG TAB PO PRN (09:45)
[2025-06-27] MEDS ORDERED: NITROGLYCERIN 0.4 MG SL TAB SL PRN (09:45)
--- NOTE | 2025-06-27 10:29 | DVHHPRES ---
History of Present Illness Resident Creating Document: JUAN BONNER RESIDENT Reason for Visit: Chest pain History of Present Illness This is a 64 years old male with past medical history of hypertension, hyperlipidemia, coronary artery disease status post CABG , PTCA x4, COPD not on home oxygen, osteoarthritis come to emergency department because chest pain. The patient's troponin level is negative. Chest x-ray shows no acute change. The patient has a significant cardiac history including three heart attacks, five stents with the most recent stent placed in [place], and open heart surgery performed in 2014. He also has a history of two back surgeries in 2002 and hypertension. He was recently admitted for pneumonia. Review of Systems Review of Systems CONSTITUTIONAL: Denies weight loss, fever and chills. HEENT: Denies changes in vision and hearing. RESPIRATORY: Denies SOB and cough. CV: Complaint of chest pain radiating to arm GI: Denies abdominal pain, nausea, vomiting and diarrhea. : Denies dysuria and urinary frequency. MSK: Denies myalgia and joint pain. SKIN: Denies rash and pruritus. NEUROLOGICAL: Denies headache Allergies: Coded Allergies: NO KNOWN ALLERGIES (Unverified , 01/24/11) Medications Current Medications Medications Dose Ordered Sig/Terry Route Start Time Stop Time Status Last Admin Dose Admin Sodium Chloride 10 ml Q8HR IV 06/27/25 14:00 Acetaminophen/ Hydrocodone Bitart 1 tab Q4HP PRN PO 06/27/25 09:45 Enoxaparin Sodium 40 mg DAILY SC 06/27/25 10:00 Acetaminophen 650 mg Q6HP PRN PO 06/27/25 09:45 Morphine Sulfate 2 mg Q4HPRN PRN IV 06/27/25 09:45 Nitroglycerin 0.4 mg Q5MINP PRN SL 06/27/25 09:45 Morphine Sulfate 2 mg Q30M PRN IV 06/27/25 09:45 Azithromycin 250 ml @ 125 mls/hr DAILY IV 06/27/25 10:00 Ceftriaxone Sodium 50 ml @ 100 mls/hr DAILY IV 06/28/25 10:00 Exam Vital Signs Vital Signs Date Time Temp Pulse Resp B/P (MAP) Pulse Ox O2 Delivery O2 Flow Rate FiO2 06/27/25 08:42 66 06/27/25 07:44 97.6 22 113/73 100 97.6 Exam General Appearance: Cooperative. Well developed. Well nourished. NAD Head Exam: Normal inspection Neck Exam: Normal inspection. Non-tender. Normal alignment Pulmonary/Respiratory: Chest non-tender. Clear bilateral breath sounds, no crackles, no wheezing. Cardiovascular/Chest: Regular rate and rhythm. No murmurs. No JVD. Peripheral Pulses: 2+ Radial (R). 2+ Radial (L). 2+ Pedal (R). 2+ Pedal (L) Abdominal Exam: Normal bowel sounds. Soft. normal abdomen, no visible veins, Nontender. No hepatospenomegaly. No masses Ankle Exam: Negative ankle edema Lower extremities: Negative lower extremity edema Upper extremities: no tenderness, normal strength, normal ROM Neuro/Mental Status: A&O x4. Coherent. Thoughts/Psych: Normal thought pattern. Appropriate mood and affect. Good judgement and insight Skin Exam: Normal inspection. Normal color. Warm. Dry Labs/Xrays Labs Test 06/27/25 08:48 06/27/25 07:59 Range/Units Troponin I High Sensitivity 8 </=54 ng/L White Blood Count 12.7 H 4.4-10.8 10^3/uL Red Blood Count 4.65 4.5-5.90 10^6/uL Hemoglobin 12.7 #L 13.5-17.5 g/dL Hematocrit 37.8 #L 41.0-53.0 % Mean Corpuscular Volume 81.3 80.0-100.0 fL Mean Corpuscular Hemoglobin 27.3 L 28.0-32.0 pg Mean Corpuscular Hemoglobin Concent 33.6 32.0-36.0 g/dL Red Cell Distribution Width 16.1 H 11.8-14.3 % Platelet Count 627 H 140-450 10^3/uL Mean Platelet Volume 7.3 6.9-10.8 fL Neutrophils (%) (Auto) 70.6 37.0-80.0 % Lymphocytes (%) (Auto) 20.2 10.0-50.0 % Monocytes (%) (Auto) 7.4 0.0-12.0 % Eosinophils (%) (Auto) 1.1 0.0-7.0 % Basophils (%) (Auto) 0.7 0.0-2.0 % Neutrophils # (Auto) 9.0 H 1.6-8.6 10 ^3/uL Lymphocytes # (Auto) 2.6 0.4-5.4 10 ^3/uL Monocytes # (Auto) 0.9 0-1.3 10 ^3/uL Eosinophils # (Auto) 0.1 0-0.8 10 ^3/uL Basophils # (Auto) 0.1 0-0.2 10 ^3/uL Nucleated Red Blood Cells 0.0 % Sodium Level 137 136-145 mmol/L Potassium Level 4.3 3.5-5.1 mmol/L Chloride Level 98 98-107 mmol/L Carbon Dioxide Level 25 20-31 mmol/L Anion Gap 14 5-15 Blood Urea Nitrogen 23 9-23 mg/dL Creatinine 1.43 H 0.700-1.30 mg/dL Glomerular Filtration Rate Calc 54 >90 mL/min BUN/Creatinine Ratio 16.1 10.0-20.0 Serum Glucose 166 H 74-106 mg/dL Calcium Level 10.3 8.7-10.4 mg/dL B-Type Natriuretic Peptide 27.86 0-100 pg/mL SEPSIS Sepsis Screen Date sepsis recognized/suspect: Jun 27, 2025 Time Sepsis recognized/suspect: 07 Recent Procedure: No On Antibiotic Therapy: No Respiratory Rate >20: No Heart Rate >90: Yes Temp<36 C (96.8 F) or >38.3 C: No SBP <90 or MAP <65 mmHG: No New Acute Mental Status Change: No Is the patient on CPAP, BIPAP,: No Physician Orders Chest Portable (06/27/25 07:43) Urinalysis (06/27/25 07:43) Electrocardigram (06/27/25 07:43) Troponin-I Hs (06/27/25 10:43) Electrocardigram (06/27/25 08:43) Electrocardigram (06/27/25 10:43) Admit (06/27/25 09:41) Code Status (06/27/25 09:41) Sodium Chloride Lock (Saline Lock Ns) (06/27/25 14:00) Hydrocodone-Acet 5/325mg Tab ([place] 5/32 (06/27/25 09:45) Enoxaparin Sodium (Lovenox) (06/27/25 10:00) Complete Blood Count (06/28/25 04:00) Comprehensive Metabolic Panel (06/28/25 04:00) Cardiac Diet-2gna,Lofat,Lochol (06/27/25 Lunch) Acetaminophen Tablet (Tylenol Tablet) (06/27/25 09:45) Morphine Sulfate Injection (06/27/25 09:45) Nitroglycerin Sublingual (Ntrostat Subli (06/27/25 09:45) Morphine Sulfate Injection (06/27/25 09:45) Oxygen By Nasal Cannula (06/27/25 09:41) Stat Ekg For Chest Pain (06/27/25 09:41) Notify Of Changes From Base (06/27/25 09:41) Environmental Epidemiologist For 24 Hours (06/27/25 09:41) Emergency Dysrhythmia Protocol (06/27/25 09:41) Rhythm Strips Once Every Shift (06/27/25 09:41) Azithromycin 500mg/ 250ml (Zithromax 50 (06/27/25 10:00) Ceftriaxone 1gm/50ml (Rocephin) (06/28/25 10:00) Drug Screen (06/27/25 10:27) Rapid Influenza A&B (06/27/25 10:27) Covid19 Antigen Evie (06/27/25 ) Vital Signs Date Time Temp Pulse Resp B/P (MAP) Pulse Ox O2 Delivery O2 Flow Rate FiO2 06/27/25 08:42 66 06/27/25 07:44 97.6 115 22 113/73 100 97.6 06/27/25 07:43 114 Laboratory Tests Test 06/27/25 07:59 White Blood Count 12.7 10^3/uL (4.4-10.8) H Assessment/Plan Assessment/Plan # sepsis due pneumonia # Chest pain likely due to pneumonia # possible Gram-positive/negative bacterial pneumonia # rule out ACS - pulse 118, RR 22, WBC 16.6 - Hospital admission - ordered blood culture, lactic acid -continue antibiotic Rocephin IV and azithromycin IV - Cardiac workup to rule out myocardial infarction - Pain medication for symptom management - Hospitalist consultation for ongoing management and disposition planning # Hypertension - Continue current management -monitor blood pressure # EUGENIA secondary to VMN - monitor BMP - avoid nephrotoxic medications #NSTEMI type 2 #Ischemic cardiomyopathy (EF 38%) s/p CABG and 5 stents and recent PCI: #CHF, systolic dysfunction, HFrEF 38%, not under acute exacerbation #hyperlipidemia -last echo done on 05/02/2025 -Atorvastatin 80 mg p.o. daily -losartan /hydrochlorothiazide 100/12.5 mg daily -aspirin 81 mg p.o. daily -Clopidogrel 75 mg p.o. daily Goal of care discussed with patient for 36 minutes: Full code Plan discussed with Dr. Hong Plan discussed with: Patient My Orders Orders - JUAN BONNER RESIDENT Procedure Category Date Status Time Admit ADMIT 06/27/25 Transmitted 09:41 Code Status CODE 06/27/25 Transmitted 09:41 Sodium Chloride Lock PHA 06/27/25 In Process (Saline Lock Ns) 14:00 Hydrocodone-Acet PHA 06/27/25 In Process 5/325mg Tab ([facility] [place] 09:45 Enoxaparin Sodium PHA 06/27/25 In Process (Lovenox) 10:00 Complete Blood Count LAB 06/28/25 Verified 04:00 Comprehensive LAB 06/28/25 Verified Metabolic Panel 04:00 Cardiac DIET 06/27/25 Transmitted Diet-2gna,Lofat,Lochol Lunch Acetaminophen Tablet PHA 06/27/25 In Process (Tylenol Tablet) 09:45 Morphine Sulfate PHA 06/27/25 In Process Injection 09:45 Nitroglycerin PHA 06/27/25 In Process Sublingual (Ntrostat 09:45 Morphine Sulfate PHA 06/27/25 In Process Injection 09:45 Oxygen By Nasal RT 06/27/25 Transmitted Cannula 09:41 Stat Ekg For Chest EVA 06/27/25 In Process Pain 09:41 Notify Of Changes EVA 06/27/25 In Process From Base 09:41 Environmental Epidemiologist For EVA 06/27/25 In Process 24 Hours 09:41 Emergency Dysrhythmia EVA 06/27/25 In Process Protocol 09:41 Rhythm Strips Once EVA 06/27/25 In Process Every Shift 09:41 Azithromycin 500mg/ PHA 06/27/25 In Process 250ml (Zithromax 50 10:00 Ceftriaxone 1gm/50ml PHA 06/28/25 In Process (Rocephin) 10:00 Drug Screen LAB 06/27/25 Logged 10:27 Rapid Influenza A&B LAB 06/27/25 Verified 10:27 Covid19 Antigen Evie LAB 06/27/25 Verified Date of Service: Jun 27, 2025 Billing Provider: DIAMANTE HONG MD Common Visit Codes: 59411-FVHHMRJ INP/OBS CARE (HIGH) Secondary Visit Codes: 43309-[id number] CARE PLAN 30 MINUTES JUAN BONNER RESIDENT Jun 27, 2025 10:29
[2025-06-27] MEDS: ONDANSETRON HCL 4 MG/2 ML VIAL IV ONE (11:06)
[2025-06-27] MEDS: MORPHINE SULFATE 4 MG/ML SYR/VIAL IV ONE (11:07)
[2025-06-27] MEDS: AZITHROMYCIN 500MG/ 250ML 250 ML IV SCH (11:08)
[2025-06-27 11:12] VITALS: PULSE 118; RESP 18; O2SAT 98
[2025-06-27] MEDS: SODIUM CHLOR 0.9% PF (SALINE LOCK) 10ML VIAL/SYR IV SCH (11:16)
[2025-06-27] MEDS: ENOXAPARIN SOD 40 MG/0.4 ML SYRINGE SC SCH (11:19)
[2025-06-27 12:16] LABS: COVID19 ANTIGEN SOFIA FIA NEGATIVE (NEGATIVE)
[2025-06-27 13:00] VITALS: BP 126/91; PULSE 98; RESP 18; TEMP 97.6; O2SAT 98
[2025-06-27 13:26] VITALS: BP 126/91; PULSE 98; PULSE 99; RESP 18; TEMP 97.6; O2SAT 100
--- NOTE | 2025-06-27 13:50 | ECG ---
[facility] Test Date: 2025-06-27 Test Time: 07:43:53 Pat Name: OLGA ESPARZA Department: [facility] ED Room: 0271T A Gender: M Window Tinter: gaby : 1960 Requested By: MAKEDA CURTIS Order Number: [id number] Reading MD: Ezequiel Aburto Measurements Intervals [place] Rate: 114 P: 81 MS: 157 QRS: 50 QRSD: 77 T: -55 QT: 342 QTc: 472 Interpretive Statements Sinus tachycardia Consider right atrial enlargement Consider left ventricular hypertrophy Nonspecific T abnormalities, inferior leads Electronically Signed On 06-30-2025 13:31:09 PST by Ezequiel Aburto Please click the below link to view image of tracing.
[2025-06-27] MEDS: HYDROcodone-ACET 5/325MG TAB PO PRN (14:22)
[2025-06-27 17:00] VITALS: BP 131/94; PULSE 103; RESP 18; TEMP 97.9; O2SAT 98
[2025-06-27] MEDS ORDERED: HYDROcodone-ACET 5/325MG TAB PO PRN (17:15)
[2025-06-27] MEDS: SODIUM CHLORIDE 0.9% 1,000 ML IV SCH (17:56)
[2025-06-27 20:00] VITALS: PULSE 99
[2025-06-27 21:00] VITALS: BP 131/86; PULSE 100; RESP 18; TEMP 97.9; O2SAT 98
[2025-06-27] MEDS: ATORVASTATIN 20 MG TAB PO SCH (21:29)
[2025-06-27 22:06] LABS: Urine Protein, UAD TRACE (Negative)
[2025-06-27 22:22] LABS: Amphetamine Screen, Urine Neg (NEGATIVE); Barbiturate Scree,Urine Neg (NEGATIVE); Benzodiazephine Screen, Urine Neg (NEGATIVE); Cannabinoid Screen, Urine Neg (NEGATIVE); Cocaine Screen, Urine Neg (NEGATIVE); Opiate Scree,Urine Pos (NEGATIVE); Phencyclidine Screen, Urine Neg (NEGATIVE)
[2025-06-28] VITALS (8 sets, daily range): BP systolic 105–127; BP diastolic 76–87; PULSE 77–105; RESP 16–18; TEMP 97.1–98.2; O2SAT 95–99
[2025-06-28 06:39] LABS: Alanine Aminotransferase 19 U/L (7-40); Albumin 3.9 g/dL (3.2-4.8); Alkaline Phosphatase 112 U/L (46-116); Anion Gap 12 (5-15); BUN/Creatinine Ratio 13.0 (10.0-20.0); Bilirubin, Total 0.5 mg/dL (0.2-1.0); Blood Urea Nitrogen 14 mg/dL (9-23); Calcium 9.8 mg/dL (8.7-10.4); Carbon Dioxide 23 mmol/L (20-31); Chloride 102 mmol/L (98-107); Potassium 3.8 mmol/L (3.5-5.1); Sodium 137 mmol/L (136-145); Total Protein 7.8 g/dL (5.7-8.2)
[2025-06-28 07:03] LABS: Glucose 107 mg/dL (74-106)
[2025-06-28 07:10] LABS: Hematocrit 32.4 % (41.0-53.0); Hemoglobin 10.9 g/dL (13.5-17.5); Mean Corpuscular Hemoglobin 27.6 pg (28.0-32.0); Mean Corpuscular Volume 82.0 fL (80.0-100.0); Nucleated Red Blood Cells % 0.1 %
[2025-06-28] MEDS: ASPirin-EC 81 mg tab PO SCH (09:10)
[2025-06-28] MEDS: CLOPIDOGREL BISULFATE 75 MG TAB PO SCH (09:11)
[2025-06-28] MEDS: METOPROLOL TARTRATE 25 MG TAB PO SCH (09:11)
[2025-06-28] MEDS: HYDROCHLOROTHIAZIDE PO SCH (09:12)
[2025-06-28] MEDS: LOSARTAN POTASSIUM PO SCH (09:12)
--- NOTE | 2025-06-28 10:03 | DVHPN2 ---
Subjective 64-year-old male with a history of coronary artery disease status post CABG, status post angioplasty and stent 10 days ago in [place], [place] comes again for chest pain that he describes as pressure in the left side of the chest radiating to the left arm Pain and here the negative EKG did not show acute finding Changes from previous H/P or p: Changes Objective Vitals Vital Signs Date Time Temp Pulse Resp B/P (MAP) Pulse Ox O2 Delivery O2 Flow Rate FiO2 06/28/25 09:11 90 128/90 06/28/25 08:40 97.6 18 97 97.6 06/27/25 20:00 Room Air* 0 21 Intake/Output Intake and Output 06/28/25 07:00 Intake Total 1465 ml Output Total 300 ml Balance 1165 ml Intake Oral 465 ml IV Total 1000 ml Output Urine Total 300 ml # Voids 2 General Appearance: Alert, Oriented X3, Cooperative, No acute distress Lungs: Clear to auscultation Cardiovascular: Regular rate, Normal S1, Normal S2 Abdomen: Normal bowel sounds, Soft, No tenderness Extremities: No edema Medications Current Medications Medications Dose Ordered Sig/Terry Route Start Time Stop Time Status Last Admin Dose Admin Sodium Chloride 10 ml Q8HR IV 06/27/25 14:00 06/28/25 05:24 10 ML Acetaminophen/ Hydrocodone Bitart 1 tab Q4HP PRN PO 06/27/25 09:45 06/28/25 09:12 1 TAB Enoxaparin Sodium 40 mg DAILY SC 06/27/25 10:00 06/28/25 09:11 40 MG Acetaminophen 650 mg Q6HP PRN PO 06/27/25 09:45 Morphine Sulfate 2 mg Q4HPRN PRN IV 06/27/25 09:45 Nitroglycerin 0.4 mg Q5MINP PRN SL 06/27/25 09:45 Morphine Sulfate 2 mg Q30M PRN IV 06/27/25 09:45 Azithromycin 250 ml @ 125 mls/hr DAILY IV 06/27/25 10:00 06/27/25 11:08 125 MLS/HR Ceftriaxone Sodium 50 ml @ 100 mls/hr DAILY IV 06/28/25 10:00 06/28/25 09:10 100 MLS/HR Sodium Chloride 1,000 ml @ 100 mls/hr Q10H IV 06/27/25 17:00 06/28/25 02:05 100 MLS/HR Aspirin 81 mg DAILY PO 06/28/25 10:00 06/28/25 09:10 81 MG Clopidogrel Bisulfate 75 mg DAILY PO 06/28/25 10:00 06/28/25 09:11 75 MG Acetaminophen/ Hydrocodone Bitart 1 tab Q4HP PRN PO 06/27/25 17:15 Metoprolol Tartrate 25 mg DAILY PO 06/28/25 10:00 06/28/25 09:11 25 MG Atorvastatin Calcium 80 mg HS PO 06/27/25 22:00 06/27/25 21:29 80 MG Patient Own Medication 1 tab DAILY PO 06/28/25 10:00 Laboratory Results Laboratory Tests 06/28/25 04:47 Chemistry Test 06/28/25 04:47 Albumin 3.9 g/dL (3.2-4.8) Calcium Level 9.8 mg/dL (8.7-10.4) Total Protein 7.8 g/dL (5.7-8.2) LFT Test 06/28/25 04:47 Alanine Aminotransferase (ALT) 19 U/L (7-40) Alkaline Phosphatase 112 U/L (46-116) Aspartate Amino Transferase (AST) 33 U/L (13-40) Total Bilirubin 0.5 mg/dL (0.2-1.0) Urinalysis Test 06/27/25 21:38 Urine Color Yellow (Yellow) Urine Clarity Clear (Clear) Urine pH 5.0 (5.0-9.0) Urine Specific [place] 1.030 (1.001-1.035) Urine Protein Trace (Negative) H Urine Ketones Trace (Negative) Urine Blood Negative /uL (Negative) Urine Nitrite Negative (Negative) Urine Bilirubin Negative (Negative) Urine Urobilinogen Normal mg/dL (Negative) Urine Leukocyte Esterase Negative /uL (Negative) Urine RBC 2 /hpf (0 - 3) Urine Microscopic WBC 4 /HPF (0-3) H Urine Squamous Epithelial Cells Few /hpf (<5) Urine Bacteria None seen /hpf (None Seen) Urine Hyaline Casts Mod /lpf (0 - 2) Urine Mucus Few (None Seen) Urine Glucose Normal mg/dL (Normal) Assessment/Plan Assessment/Plan Unstable angina Coronary artery disease History of CABG Recent PTCA angioplasty 10 days ago Mixed hyperlipidemia Hypertension Pneumonia with possible g positive and g negative organisms Plan Aspirin Plavix IV antibiotics for possible underlying pneumonia Consult Full code Advance directives discussed for 20 minutes Plan discussed with: Patient Date of Service: Jun 28, 2025 Billing Provider: JL RAGLAND MD Common Visit Codes: [id number] INP/OBS CARE(HIGH) Secondary Visit Codes: [id number] CARE PLAN 30 MINUTES JL RAGLAND MD Jun 28, 2025 10:03
[2025-06-28] MEDS: MORPHINE SULFATE INJ 2 MG/ml SYRG IV PRN (12:48)
--- NOTE | 2025-06-28 13:29 | DVHINCON2 ---
Date Seen: Jun 28, 2025 Referring Physician MD Maxx Reason for Consultation Unstable angina History of Present Illness This is a 64-year-old man who presented to the emergency room with a chief complaint of bilateral arm pain. The patient complains of bilateral upper extremity pain for approximately five days. He denies any recent trauma or heavy lifting. States he missed his cortisol shots during the past weeks. Denies chest pain, palpitations, diaphoresis, SOB, dizziness, or syncopal events. Significant medical history includes severe coronary artery disease status post quadruple vessel coronary artery bypass in 2014 status post PCI with single stent placement approximately two weeks ago in [place] (on DAPT/statin), hypertension, dyslipidemia, and osteoarthritis. Past Medical History Past medical history reviewed. No other significant than mentioned above. Past Surgical History Quadruple vessel coronary artery bypass graft, 2014 PCI with stent placement x1 [facility], 05/2025 Family History: Cardiovascular disease G8 MOTHER Family history: Arthritis G8 FATHER, Onset:50's - 60 Family history: Osteoporosis G8 MOTHER, Onset:50's - 60 Hypertension G8 MOTHER Family History Family history reviewed. Social History Denies the use of illicit drugs, alcohol, or tobacco use. Allergies: Coded Allergies: NO KNOWN ALLERGIES (Unverified , 01/24/11) Home Meds Active Scripts Hydrocodone-Acetaminophen (Hydrocodone Bitartrate/AC 5-325 mg) 1 Tab Tab, 1 TAB PO Q4HP PRN, #30 TAB Prov:VIKAS SERNA MD 06/24/25 Furosemide (Lasix) 40 Mg Tab, 40 MG PO DAILY for 20 Days, #20 TAB Prov:VIKAS SERNA MD 05/04/25 Losartan Potassium & Hydrochlo (Losartan Potassium/Hydroc) 1 Tab Tab, 1 TAB PO DAILY for 90 Days, #90 TAB 2 Refills [Losartan/hydrochlorothiazide 100/12.5 mg] Prov:CECE SANDOVAL DO 01/16/24 Metoprolol Tartrate (Lopressor) 25 Mg Tb, 1 TAB PO DAILY for 90 Days, #90 TAB 2 Refills Prov:CECE SANDOVAL DO 01/16/24 Clopidogrel Bisulfate (Plavix) 75 Mg Tab, 75 MG PO DAILY for 90 Days, #90 TAB 3 Refills Prov:CECE SANDOVAL DO 01/16/24 Atorvastatin Calcium (ATORVASTATIN CALCIUM) 80 Mg Tab, 80 MG PO DAILY for 90 Days, #90 TAB 2 Refills Prov:CECE SANDOVAL DO 01/16/24 Aspirin (Aspirin Low Dose) 81 Mg Tab, 81 MG PO DAILY for 90 Days, #90 TAB 2 Refills Prov:CECE SANDOVAL DO 01/16/24 Home Meds Home medications reviewed. Current Medications Current Medications Medications (Trade) Dose Ordered Sig/Terry Route PRN Reason Start Time Stop Time Status Last Admin Sodium Chloride (Saline Lock Ns) 10 ml Q8HR IV 06/27/25 14:00 06/28/25 05:24 Ceftriaxone Sodium 50 ml @ 100 mls/hr DAILY IV 06/28/25 10:00 06/28/25 09:10 Sodium Chloride 1,000 ml @ 100 mls/hr Q10H IV 06/27/25 17:00 06/28/25 12:48 Aspirin (Ecotrin Enteric Coated Tablet) 81 mg DAILY PO 06/28/25 10:00 06/28/25 09:10 Clopidogrel Bisulfate (Plavix) 75 mg DAILY PO 06/28/25 10:00 06/28/25 09:11 Acetaminophen/ Hydrocodone Bitart ([place] 5/325MG Tab) 1 tab Q4HP PRN PO PAIN SCALE 1 THRU 6 06/27/25 17:15 Metoprolol Tartrate (Lopressor Tablet) 25 mg DAILY PO 06/28/25 10:00 06/28/25 09:11 Atorvastatin Calcium (Lipitor) 80 mg HS PO 06/27/25 22:00 06/27/25 21:29 Patient Own Medication 1 tab DAILY PO 06/28/25 10:00 Review of Systems Constitutional: No symptom reported Ears, Nose, & Throat: No symptom reported Eyes: No symptom reported Neurological: No symptoms reported Pulmonary/Respiratory: No symptom reported Cardiovascular: No symptom reported Gastrointestinal: No symptom reported Genitourinary: No symptom reported Musculoskeletal: Bilateral upper extremity pain Skin: No symptom reported Psychiatric: No symptom reported Endocrine: No symptom reported Hemotologic/Lymphatic: No symptom reported Vital Signs Vital Signs Date Time Temp Pulse Resp B/P (MAP) Pulse Ox O2 Delivery O2 Flow Rate FiO2 06/28/25 12:48 78 20 126/74 06/28/25 08:40 97.6 97 97.6 06/28/25 08:00 Room Air* 0 21 Physical Exam General Appearance: Cooperative. Well developed. Well nourished. In no acute distress Head Exam: Normal inspection Neck Exam: Normal inspection. Non-tender. Normal alignment Pulmonary/Respiratory: Chest non-tender. Clear bilateral breath sounds Cardiovascular/Chest: Regular rate and rhythm. S1, S2. Sinus rhythm with T- wave inversion to inferior leads. No murmurs. No JVD. Peripheral Pulses: 2+ Radial (R). 2+ Radial (L). 2+ Pedal (R). 2+ Pedal (L) Abdominal Exam: Normal bowel sounds. Soft. Nontender. No hepatospenomegaly. No masses Ankle Exam: Negative ankle edema Lower extremities: Negative lower extremity edema Neuro/Mental Status: A&O x4. Coherent Thoughts/Psych: Normal thought pattern. Appropriate mood and affect. Good judgement and insight Appearance: In no acute distress Skin Exam: Normal inspection. Normal color. Warm. Dry Labs/Diagnostic Data Labs Test 06/28/25 04:47 06/27/25 21:38 06/27/25 11:14 06/27/25 10:56 Range/Units White Blood Count 9.8 4.4-10.8 10^3/uL Red Blood Count 3.95 L 4.5-5.90 10^6/uL Hemoglobin 10.9 L 13.5-17.5 g/dL Hematocrit 32.4 #L 41.0-53.0 % Mean Corpuscular Volume 82.0 80.0-100.0 fL Mean Corpuscular Hemoglobin 27.6 L 28.0-32.0 pg Mean Corpuscular Hemoglobin Concent 33.7 32.0-36.0 g/dL Red Cell Distribution Width 16.4 H 11.8-14.3 % Platelet Count 543 H 140-450 10^3/uL Mean Platelet Volume 7.4 6.9-10.8 fL Neutrophils (%) (Auto) 68.4 37.0-80.0 % Lymphocytes (%) (Auto) 20.7 10.0-50.0 % Monocytes (%) (Auto) 8.0 0.0-12.0 % Eosinophils (%) (Auto) 1.8 0.0-7.0 % Basophils (%) (Auto) 1.1 0.0-2.0 % Neutrophils # (Auto) 6.7 1.6-8.6 10 ^3/uL Lymphocytes # (Auto) 2.0 0.4-5.4 10 ^3/uL Monocytes # (Auto) 0.8 0-1.3 10 ^3/uL Eosinophils # (Auto) 0.2 0-0.8 10 ^3/uL Basophils # (Auto) 0.1 0-0.2 10 ^3/uL Nucleated Red Blood Cells 0.1 % Sodium Level 137 136-145 mmol/L Potassium Level 3.8 3.5-5.1 mmol/L Chloride Level 102 98-107 mmol/L Carbon Dioxide Level 23 20-31 mmol/L Anion Gap 12 5-15 Blood Urea Nitrogen 14 9-23 mg/dL Creatinine 1.08 0.700-1.30 mg/dL Glomerular Filtration Rate Calc 76 >90 mL/min BUN/Creatinine Ratio 13.0 10.0-20.0 Serum Glucose 107 H 74-106 mg/dL Lactic Acid Level 1.1 0.4-2.0 mmol/L Calcium Level 9.8 8.7-10.4 mg/dL Total Bilirubin 0.5 0.2-1.0 mg/dL Aspartate Amino Transferase (AST) 33 13-40 U/L Alanine Aminotransferase (ALT) 19 7-40 U/L Alkaline Phosphatase 112 46-116 U/L Total Protein 7.8 5.7-8.2 g/dL Albumin 3.9 3.2-4.8 g/dL Urine Color Yellow Yellow Urine Clarity Clear Clear Urine pH 5.0 5.0-9.0 Urine Specific [place] 1.030 1.001-1.035 Urine Protein Trace H Negative Urine Ketones Trace Negative Urine Blood Negative Negative /uL Urine Nitrite Negative Negative Urine Bilirubin Negative Negative Urine Urobilinogen Normal Negative mg/dL Urine Leukocyte Esterase Negative Negative /uL Urine RBC 2 0 - 3 /hpf Urine Microscopic WBC 4 H 0-3 /HPF Urine Squamous Epithelial Cells Few <5 /hpf Urine Bacteria None seen None Seen /hpf Urine Hyaline Casts Mod 0 - 2 /lpf Urine Mucus Few None Seen Urine Glucose Normal Normal mg/dL Urine Opiates Screen Pos NEGATIVE Urine Fentanyl Screen Neg NEGATIVE Urine Barbiturates Screen Neg NEGATIVE Urine Phencyclidine Screen Neg NEGATIVE Urine Amphetamines Screen Neg NEGATIVE Urine Benzodiazepines Screen Neg NEGATIVE Urine Cocaine Screen Neg NEGATIVE Urine Cannabinoids Screen Neg NEGATIVE Influenza Type A Antigen Negative Negative Influenza Type B Antigen Negative Negative SARS-CoV-2 Antigen (Rapid) Negative NEGATIVE Troponin I High Sensitivity 7 </=54 ng/L Test 06/27/25 07:59 Range/Units B-Type Natriuretic Peptide 27.86 0-100 pg/mL Microbiology Date/Time Source Procedure Growth Status 06/27/25 15:00 Nose MRSA Screen - Final Complete Assessment Severe coronary artery disease status post 4v-CABG status post PCI x1 [place] (on DAPT/statin) Ischemic cardiomyopathy with LVEF <40% Chronic compensated HFrEF Hypertension Dyslipidemia Acute kidney injury Anemia in chronic disease Thrombocytosis Osteoarthritis Plan/Recommendation (Dr. Cox) * Transthoracic echocardiogram from 05/03/2025 revealed LVEF at 38% with dilated/hypokinetic left ventricle. * Twelve lead electrocardiogram revealed a sinus rhythm with T-wave inversion to inferior leads. * Serial troponin levels are negative. Plan: The patient denies any chest pain neither suspected for acute coronary syndrome. Recommendations are for dual-antiplatelet therapy, lipid lowering agent, and initiation of full GDMT for HFrEF to be titrated as tolerated. Cont inue DVT/VTE prophylaxis. Currently on IV fluids, monitor closely given HFrEF. There is no further cardiac workup indicated at this time. Kindly call with any questions or concerns. Thank you for allowing us to participate in this patient's care. This medical document was created using an electronic medical record system with voice recognition software and computerized dictation system. Although this document has been carefully reviewed, there might still be some phonetic and typographical errors. Occasional wrong-word or ``sound-alike substitutions may have occurred due to the inherent limitations of voice recognition software. These areas are purely typographical due to imperfections of the software programs and do not reflect any compromise in the patient's medical care. Please read the chart carefully and recognize, using context, where these substitutions have occurred. Plan discussed with: Patient, Other NYHA Physical activity limitations: Class2(Slight)fatigue,sob (palpitatns, angina w activityv) Date of Service: Jun 28, 2025 Billing Provider: TINO ROSS Cardiology Common Codes: [id number] INP/OBS CARE (High) TINO ROSS BIOENGINEER Jun 28, 2025 13:29
--- NOTE | 2025-06-28 22:28 | DVHINCON2 ---
Date Seen: Jun 28, 2025 Referring Physician MD Maxx Reason for Consultation Unstable angina History of Present Illness This is a 64-year-old male with a past medical history of severe coronary artery disease status post quadruple vessel coronary artery bypass in 2014 status post PCI with single stent placement approximately two weeks ago in [place] (on DAPT/statin), hypertension, dyslipidemia, and osteoarthritis who presented to the emergency room with a chief complaint of bilateral arm pain. The patient complains of bilateral upper extremity pain for approximately five days. He denies any recent trauma or heavy lifting. States he missed his cortisol shots during the past weeks. Denies chest pain, palpitations, diaphoresis, SOB, dizziness, or syncopal events. Chest x-ray shows NAD. Patient was admitted to the hospital. I am asked to consult on this patient. Past Medical History Past medical history reviewed. No other significant than mentioned above. Past Surgical History Quadruple vessel coronary artery bypass graft, 2014 PCI with stent placement x1 [facility], 05/2025 Family History: Cardiovascular disease G8 MOTHER Family history: Arthritis G8 FATHER, Onset:50's - 60 Family history: Osteoporosis G8 MOTHER, Onset:50's - 60 Hypertension G8 MOTHER Allergies: Coded Allergies: NO KNOWN ALLERGIES (Unverified , 01/24/11) Home Meds Active Scripts Hydrocodone-Acetaminophen (Hydrocodone Bitartrate/AC 5-325 mg) 1 Tab Tab, 1 TAB PO Q4HP PRN, #30 TAB Prov:VIKAS SERNA MD 06/24/25 Furosemide (Lasix) 40 Mg Tab, 40 MG PO DAILY for 20 Days, #20 TAB Prov:VIKAS SERNA MD 05/04/25 Losartan Potassium & Hydrochlo (Losartan Potassium/Hydroc) 1 Tab Tab, 1 TAB PO DAILY for 90 Days, #90 TAB 2 Refills [Losartan/hydrochlorothiazide 100/12.5 mg] Prov:CECE SANDOVAL DO 01/16/24 Metoprolol Tartrate (Lopressor) 25 Mg Tb, 1 TAB PO DAILY for 90 Days, #90 TAB 2 Refills Prov:CECE SANDOVAL DO 01/16/24 Clopidogrel Bisulfate (Plavix) 75 Mg Tab, 75 MG PO DAILY for 90 Days, #90 TAB 3 Refills Prov:CECE SANDOVAL DO 5/22/24 Atorvastatin Calcium (ATORVASTATIN CALCIUM) 80 Mg Tab, 80 MG PO DAILY for 90 Days, #90 TAB 2 Refills Prov:CECE SANDOVAL DO 01/16/24 Aspirin (Aspirin Low Dose) 81 Mg Tab, 81 MG PO DAILY for 90 Days, #90 TAB 2 Refills Prov:CECE SANDOVAL DO 01/16/24 Current Medications Current Medications Medications (Trade) Dose Ordered Sig/Terry Route PRN Reason Start Time Stop Time Status Last Admin Ceftriaxone Sodium 50 ml @ 100 mls/hr DAILY IV 06/28/25 10:00 06/28/25 09:10 Sodium Chloride 1,000 ml @ 100 mls/hr Q10H IV 06/27/25 17:00 06/28/25 12:48 Aspirin (Ecotrin Enteric Coated Tablet) 81 mg DAILY PO 06/28/25 10:00 06/28/25 09:10 Clopidogrel Bisulfate (Plavix) 75 mg DAILY PO 06/28/25 10:00 06/28/25 09:11 Acetaminophen/ Hydrocodone Bitart ([place] 5/325MG Tab) 1 tab Q4HP PRN PO PAIN SCALE 1 THRU 6 06/27/25 17:15 Metoprolol Tartrate (Lopressor Tablet) 25 mg DAILY PO 06/28/25 10:00 06/28/25 09:11 Atorvastatin Calcium (Lipitor) 80 mg HS PO 06/27/25 22:00 06/27/25 21:29 Patient Own Medication 1 tab DAILY PO 06/28/25 10:00 Losartan Potassium (Cozaar Tablet) 12.5 mg DAILY PO 06/29/25 10:00 UNV Empaglifozin (Jardiance) 10 mg DAILY PO 06/29/25 10:00 UNV Spironolactone (Aldactone) 12.5 mg DAILY PO 06/29/25 10:00 UNV Review of Systems Constitutional: No symptom reported Ears, Nose, & Throat: No symptom reported Eyes: No symptom reported Neurological: No symptoms reported Pulmonary/Respiratory: No symptom reported Cardiovascular: No symptom reported Gastrointestinal: No symptom reported Genitourinary: No symptom reported Musculoskeletal: Bilateral upper extremity pain Skin: No symptom reported Psychiatric: No symptom reported Endocrine: No symptom reported Hemotologic/Lymphatic: No symptom reported Vital Signs Vital Signs Date Time Temp Pulse Resp B/P (MAP) Pulse Ox O2 Delivery O2 Flow Rate FiO2 06/28/25 13:00 97.1 77 18 105/77 (86) 99 97.1 06/28/25 08:00 Room Air* 0 21 Physical Exam GENERAL: Alert and oriented x 3. No acute distress. EYES: PERRL, EOMI. Anicteric. HENT: Moist mucous membranes. LUNGS: Clear to auscultation bilaterally. CARDIOVASCULAR: Regular rate and rhythm. ABDOMEN: Soft, nontender and nondistended. EXTREMITIES: No edema. NEUROLOGIC: No focal neurological deficits. SKIN: Warm, dry. Labs/Diagnostic Data Labs Test 06/28/25 04:47 06/27/25 21:38 06/27/25 11:14 06/27/25 10:56 Range/Units White Blood Count 9.8 4.4-10.8 10^3/uL Red Blood Count 3.95 L 4.5-5.90 10^6/uL Hemoglobin 10.9 L 13.5-17.5 g/dL Hematocrit 32.4 #L 41.0-53.0 % Mean Corpuscular Volume 82.0 80.0-100.0 fL Mean Corpuscular Hemoglobin 27.6 L 28.0-32.0 pg Mean Corpuscular Hemoglobin Concent 33.7 32.0-36.0 g/dL Red Cell Distribution Width 16.4 H 11.8-14.3 % Platelet Count 543 H 140-450 10^3/uL Mean Platelet Volume 7.4 6.9-10.8 fL Neutrophils (%) (Auto) 68.4 37.0-80.0 % Lymphocytes (%) (Auto) 20.7 10.0-50.0 % Monocytes (%) (Auto) 8.0 0.0-12.0 % Eosinophils (%) (Auto) 1.8 0.0-7.0 % Basophils (%) (Auto) 1.1 0.0-2.0 % Neutrophils # (Auto) 6.7 1.6-8.6 10 ^3/uL Lymphocytes # (Auto) 2.0 0.4-5.4 10 ^3/uL Monocytes # (Auto) 0.8 0-1.3 10 ^3/uL Eosinophils # (Auto) 0.2 0-0.8 10 ^3/uL Basophils # (Auto) 0.1 0-0.2 10 ^3/uL Nucleated Red Blood Cells 0.1 % Sodium Level 137 136-145 mmol/L Potassium Level 3.8 3.5-5.1 mmol/L Chloride Level 102 98-107 mmol/L Carbon Dioxide Level 23 20-31 mmol/L Anion Gap 12 5-15 Blood Urea Nitrogen 14 9-23 mg/dL Creatinine 1.08 0.700-1.30 mg/dL Glomerular Filtration Rate Calc 76 >90 mL/min BUN/Creatinine Ratio 13.0 10.0-20.0 Serum Glucose 107 H 74-106 mg/dL Lactic Acid Level 1.1 0.4-2.0 mmol/L Calcium Level 9.8 8.7-10.4 mg/dL Total Bilirubin 0.5 0.2-1.0 mg/dL Aspartate Amino Transferase (AST) 33 13-40 U/L Alanine Aminotransferase (ALT) 19 7-40 U/L Alkaline Phosphatase 112 46-116 U/L Total Protein 7.8 5.7-8.2 g/dL Albumin 3.9 3.2-4.8 g/dL Urine Color Yellow Yellow Urine Clarity Clear Clear Urine pH 5.0 5.0-9.0 Urine Specific [place] 1.030 1.001-1.035 Urine Protein Trace H Negative Urine Ketones Trace Negative Urine Blood Negative Negative /uL Urine Nitrite Negative Negative Urine Bilirubin Negative Negative Urine Urobilinogen Normal Negative mg/dL Urine Leukocyte Esterase Negative Negative /uL Urine RBC 2 0 - 3 /hpf Urine Microscopic WBC 4 H 0-3 /HPF Urine Squamous Epithelial Cells Few <5 /hpf Urine Bacteria None seen None Seen /hpf Urine Hyaline Casts Mod 0 - 2 /lpf Urine Mucus Few None Seen Urine Glucose Normal Normal mg/dL Urine Opiates Screen Pos NEGATIVE Urine Fentanyl Screen Neg NEGATIVE Urine Barbiturates Screen Neg NEGATIVE Urine Phencyclidine Screen Neg NEGATIVE Urine Amphetamines Screen Neg NEGATIVE Urine Benzodiazepines Screen Neg NEGATIVE Urine Cocaine Screen Neg NEGATIVE Urine Cannabinoids Screen Neg NEGATIVE Influenza Type A Antigen Negative Negative Influenza Type B Antigen Negative Negative SARS-CoV-2 Antigen (Rapid) Negative NEGATIVE Troponin I High Sensitivity 7 </=54 ng/L Test 06/27/25 07:59 Range/Units B-Type Natriuretic Peptide 27.86 0-100 pg/mL Microbiology Date/Time Source Procedure Growth Status 06/27/25 15:00 Nose MRSA Screen - Final Complete Assessment Severe coronary artery disease status post 4v-CABG status post PCI x1 [place] (on DAPT/statin). Ischemic cardiomyopathy with LVEF <40%. Chronic compensated HFrEF. Hypertension. Dyslipidemia. Acute kidney injury. Anemia in chronic disease. Thrombocytosis. Osteoarthritis. Plan/Recommendation I agree with your ongoing assessment and care of plan. Patient has been seen by Kelsi Wood NP on my behalf, her and I discussed the plan with the patient. Transthoracic echocardiogram from 05/03/2025 revealed LVEF at 38% with dilated/hypokinetic left ventricle. Twelve lead electrocardiogram revealed a sinus rhythm with T-wave inversion to inferior leads. Serial troponin levels are negative. The patient denies any chest pain neither suspected for acute coronary syndrome. Recommendations are for dual-antiplatelet therapy, lipid lowering agent, and initiation of full GDMT for HFrEF to be titrated as tolerated. Continue DVT/VTE prophylaxis. Currently on IV fluids, monitor closely given HFrEF. There is no further cardiac workup indicated at this time. Additional plan as per the hospital course. Plan discussed with: Patient NYHA Physical activity limitations: Class2(Slight)fatigue,sob Date of Service: Jun 28, 2025 Billing Provider: PA HILTON MD Cardiology Common Codes: [id number] INP/OBS CARE (High) Cardiology Consultation Codes: [id number] CONSULT <45MIN PA HILTON MD Jun 28, 2025 14:51
[2025-06-29 01:00] VITALS: BP 128/86; PULSE 98; RESP 17; TEMP 98; O2SAT 98
[2025-06-29 05:00] VITALS: BP 106/77; PULSE 97; RESP 17; TEMP 98; O2SAT 98
[2025-06-29 08:00] VITALS: PULSE 97; RESP 18; O2SAT 98
[2025-06-29 08:38] VITALS: BP 127/90; PULSE 105; RESP 18; TEMP 97.4; O2SAT 100
[2025-06-29] MEDS: SPIRONOLACTONE 25 MG TAB PO SCH (09:50)
[2025-06-29] MEDS: EMPAGLIFLOZIN 10 MG TAB PO SCH (09:50)
[2025-06-29] MEDS: LOSARTAN POTASSIUM 25 MG TAB PO SCH (09:51)
[2025-06-29 10:14] LABS: Triglycerides 200 mg/dL (< 150)
[2025-06-29 10:16] LABS: Cholesterol 187 mg/dL (< 200); HDL Cholesterol 58 mg/dL (40-59)
--- NOTE | 2025-06-29 10:39 | DVHDS2 ---
Discharge Summary Date of Admission Jun 27, 2025 at 09:41 Date of Discharge: Jun 29, 2025 Labs/Diagnostic Data: Laboratory Results Test 06/29/25 09:46 06/28/25 04:47 06/27/25 21:38 06/27/25 11:14 Triglycerides Level 200 mg/dL (< 150) Cholesterol Level 187 mg/dL (< 200) LDL Cholesterol 110 mg/dL (< 100) HDL Cholesterol 58 mg/dL (40-59) Thyroid Stimulating Hormone (TSH) 1.00 uIU/mL (0.55-4.78) White Blood Count 9.8 10^3/uL (4.4-10.8) Red Blood Count 3.95 10^6/uL (4.5-5.90) Hemoglobin 10.9 g/dL (13.5-17.5) Hematocrit 32.4 % (41.0-53.0) Mean Corpuscular Volume 82.0 fL (80.0-100.0) Mean Corpuscular Hemoglobin 27.6 pg (28.0-32.0) Mean Corpuscular Hemoglobin Concent 33.7 g/dL (32.0-36.0) Red Cell Distribution Width 16.4 % (11.8-14.3) Platelet Count 543 10^3/uL (140-450) Mean Platelet Volume 7.4 fL (6.9-10.8) Neutrophils (%) (Auto) 68.4 % (37.0-80.0) Lymphocytes (%) (Auto) 20.7 % (10.0-50.0) Monocytes (%) (Auto) 8.0 % (0.0-12.0) Eosinophils (%) (Auto) 1.8 % (0.0-7.0) Basophils (%) (Auto) 1.1 % (0.0-2.0) Neutrophils # (Auto) 6.7 10 ^3/uL (1.6-8.6) Lymphocytes # (Auto) 2.0 10 ^3/uL (0.4-5.4) Monocytes # (Auto) 0.8 10 ^3/uL (0-1.3) Eosinophils # (Auto) 0.2 10 ^3/uL (0-0.8) Basophils # (Auto) 0.1 10 ^3/uL (0-0.2) Nucleated Red Blood Cells 0.1 % Sodium Level 137 mmol/L (136-145) Potassium Level 3.8 mmol/L (3.5-5.1) Chloride Level 102 mmol/L (98-107) Carbon Dioxide Level 23 mmol/L (20-31) Anion Gap 12 (5-15) Blood Urea Nitrogen 14 mg/dL (9-23) Creatinine 1.08 mg/dL (0.700-1.30) Glomerular Filtration Rate Calc 76 mL/min (>90) BUN/Creatinine Ratio 13.0 (10.0-20.0) Serum Glucose 107 mg/dL (74-106) Lactic Acid Level 1.1 mmol/L (0.4-2.0) Calcium Level 9.8 mg/dL (8.7-10.4) Total Bilirubin 0.5 mg/dL (0.2-1.0) Aspartate Amino Transferase (AST) 33 U/L (13-40) Alanine Aminotransferase (ALT) 19 U/L (7-40) Alkaline Phosphatase 112 U/L (46-116) Total Protein 7.8 g/dL (5.7-8.2) Albumin 3.9 g/dL (3.2-4.8) Urine Color Yellow (Yellow) Urine Clarity Clear (Clear) Urine pH 5.0 (5.0-9.0) Urine Specific [place] 1.030 (1.001-1.035) Urine Protein Trace (Negative) Urine Ketones Trace (Negative) Urine Blood Negative /uL (Negative) Urine Nitrite Negative (Negative) Urine Bilirubin Negative (Negative) Urine Urobilinogen Normal mg/dL (Negative) Urine Leukocyte Esterase Negative /uL (Negative) Urine RBC 2 /hpf (0 - 3) Urine Microscopic WBC 4 /HPF (0-3) Urine Squamous Epithelial Cells Few /hpf (<5) Urine Bacteria None seen /hpf (None Seen) Urine Hyaline Casts Mod /lpf (0 - 2) Urine Mucus Few (None Seen) Urine Glucose Normal mg/dL (Normal) Urine Opiates Screen Pos (NEGATIVE) Urine Fentanyl Screen Neg (NEGATIVE) Urine Barbiturates Screen Neg (NEGATIVE) Urine Phencyclidine Screen Neg (NEGATIVE) Urine Amphetamines Screen Neg (NEGATIVE) Urine Benzodiazepines Screen Neg (NEGATIVE) Urine Cocaine Screen Neg (NEGATIVE) Urine Cannabinoids Screen Neg (NEGATIVE) Influenza Type A Antigen Negative (Negative) Influenza Type B Antigen Negative (Negative) SARS-CoV-2 Antigen (Rapid) Negative (NEGATIVE) Test 06/27/25 10:56 06/27/25 07:59 Troponin I High Sensitivity 7 ng/L (</=54) B-Type Natriuretic Peptide 27.86 pg/mL (0-100) Other Laboratory Tests 06/28/25 04:47 Brief Hx & Hospital Course: Final diagnoses: CAD status post 4v-CABG status post PCI x1 COOKIE (on DAPT/statin) Ischemic cardiomyopathy with LVEF <40% Chronic compensated HFrEF Hypertension Dyslipidemia Acute kidney injury Anemia in chronic disease Thrombocytosis Osteoarthritis 64-year-old male who was admitted for chest pain He has a history of coronary artery disease status post PCI but 10 days ago in [place] He was evaluated here by Cardiology Echocardiogram showed ejection fraction less than 40% [place] was ruled out He was advised to stay on guideline directed medical therapy with aspirin and Plavix and statin and Jardiance and losartan and metoprolol and Aldactone Discharged home Stable for discharge Follow up with his primary care physician as soon as possible Aspirin Plavix Lipitor Losartan Aldactone Jardiance Metoprolol [place] p.r.n. Condition at Discharge: Stable Final Diagnosis/Problems List CAD status post 4v-CABG status post PCI x1 COOKIE (on DAPT/statin) Ischemic cardiomyopathy with LVEF <40% Chronic compensated HFrEF Hypertension Dyslipidemia Acute kidney injury Anemia in chronic disease Thrombocytosis Osteoarthritis Discharge Disposition: Home SNF Discharge Will this Physician continue t: No Discharge Instruct/Medications Diet: Cardiac 2g Na,low cholest Activity: No Restrictions, As Tolerated Follow Up/Referral: PCP [facility] Medications: Same home meds Scheduled Aspirin (Aspirin Low Dose), 81 MG PO DAILY Atorvastatin Calcium (Atorvastatin Calcium), 1 TAB PO DAILY, (Reported) Atorvastatin Calcium (Lipitor), 1 TAB PO DAILY Clopidogrel Bisulfate (Plavix), 75 MG PO DAILY Clopidogrel Bisulfate (Plavix), 1 TAB PO DAILY Empagliflozin (Jardiance), 10 MG PO DAILY Furosemide (Lasix), 40 MG PO DAILY Losartan Potassium (Losartan Potassium), 12.5 MG GT DAILY Losartan Potassium & Hydrochlo (Losartan Potassium/Hydroc), 1 TAB PO DAILY Metoprolol Succinate (Toprol Xl), 1 TAB PO DAILY Metoprolol Tartrate (Lopressor), 1 TAB PO DAILY Spironolactone (Aldactone), 12.5 MG PO DAILY Scheduled PRN Hydrocodone-Acetaminophen (Hydrocodone Bitartrate/AC 5-325 mg), 1 TAB PO Q4HP PRN Discharge Statement: "Patient was advised to return to the ER or call 911 if any headaches, dizziness, shortness of breath, chest pain, abdominal pain, bleeding, fevers, or worsening of medical condition. Patient was counseled about treatment plan, medications, possible side effects, patientverbalized understanding. All questions were answered to the best of my ability. This discharge took greater then 30 minutes in planning, reviewing documentation, counseling the patient, and discussing with other team members." ASSESSMENT ASSESSMENT Assessment CAD status post 4v-CABG status post PCI x1 COOKIE (on DAPT/statin) Ischemic cardiomyopathy with LVEF <40% Chronic compensated HFrEF Hypertension Dyslipidemia Acute kidney injury Anemia in chronic disease Thrombocytosis Osteoarthritis Date of Service: Jun 29, 2025 Billing Provider: JL RAGLAND MD Common Visit Codes: 91398-NCS/OBS DISCH DAY >30min JL RAGLAND MD Jun 29, 2025 10:39
[2025-06-29] MEDS ORDERED: LOS25T GT (10:45)
[2025-06-29] MEDS ORDERED: METO25TA36 PO (10:45)
[2025-06-29] MEDS ORDERED: EMPA1TAB PO (10:45)
[2025-06-29] MEDS ORDERED: HYDR-4902 PO (10:45)
[2025-06-29] MEDS ORDERED: CLOP75TA28 PO (10:45)
[2025-06-29] MEDS ORDERED: SPIR25TA PO (10:45)
[2025-06-29] MEDS ORDERED: ATOR80TA PO (10:45)
[2025-06-29 11:13] VITALS: BP 128/89; PULSE 99; RESP 18; TEMP 98.2; O2SAT 98
--- NOTE | 2025-06-29 11:56 | ECG ---
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
--- NOTE | 2025-06-30 01:18 | DVHPN2 ---
Progress Note - Dictate Date Seen: Jun 29, 2025 Medical Necessity Reason Pt with a Central, PICC or Fol: No Subjective Patient was seen and evaluated in follow up. No overnight events. Patient reports feeling well. He denies any cardiac symptoms. Trig 200, LDL 110. TSH is WNL. Patient is cardiac stable for discharge. Telemetry reviewed. vital signs Vital Sign Date Time Temp Pulse Resp B/P (MAP) Pulse Ox O2 Delivery O2 Flow Rate FiO2 06/29/25 11:13 98.2 99 18 98 06/29/25 10:51 120/89 06/29/25 08:00 Room Air* 0 21 Total Intake and Output 06/29/25 06/29/25 06/30/25 15:00 23:00 07:00 Intake Total 50 ml Balance 50 ml objective GENERAL: Alert and oriented x 3. No acute distress. EYES: PERRL, EOMI. Anicteric. HENT: Moist mucous membranes. LUNGS: Clear to auscultation bilaterally. CARDIOVASCULAR: Regular rate and rhythm. ABDOMEN: Soft, nontender and nondistended. EXTREMITIES: No edema. NEUROLOGIC: No focal neurological deficits. SKIN: Warm, dry. laboratory and microbiology Laboratory Tests 06/28/25 04:47 Test 06/28/25 04:47 Range/Units Serum Glucose 107 H 74-106 mg/dL Problem List Severe coronary artery disease status post 4v-CABG status post PCI x1 COOKIE (on DAPT/statin). Ischemic cardiomyopathy with LVEF <40%. Chronic compensated HFrEF. Hypertension. Dyslipidemia. Acute kidney injury. Anemia in chronic disease. Thrombocytosis. Osteoarthritis. Assessment/Plan Continued all current supportive medical care. Transthoracic echocardiogram from 05/03/2025 revealed LVEF at 38% with dilated/hypokinetic left ventricle. Twelve lead electrocardiogram revealed a sinus rhythm with T-wave inversion to inferior leads. Serial troponin levels are negative. The patient denies any chest pain neither suspected for acute coronary syndrome. Recommendations are for dual-antiplatelet therapy, lipid lowering agent, and initiation of full GDMT for HFrEF to be titrated as tolerated. Continue DVT/VTE prophylaxis. Currently on IV fluids, monitor closely given HFrEF. Additional plan as per the hospital course. Plan discussed with: Patient PA HILTON MD Jun 30, 2025 01:18
== END 2025-06-29 12:10 | disposition home or self-care (01) | DRG 871 ==
LOC: EDBD 07:38 → ER 07:38 → OVERFLOW 09:41 → TELE-WESTW 13:02
PROVIDERS: ADMIT Internal Medicine Geriatric Medicine; ATTEND Internal Medicine Geriatric Medicine
DX: A41.50 Gram-negative sepsis, unspecified (principal); I21.A1 Myocardial infarction type 2; J15.69 Pneumonia due to other Gram-negative bacteria; N17.0 Acute kidney failure with tubular necrosis; J44.0 Chronic obstructive pulmonary disease with (acute) lower respiratory infection; I50.22 Chronic systolic (congestive) heart failure; I25.110 Atherosclerotic heart disease of native coronary artery with unstable angina pectoris; I11.0 Hypertensive heart disease with heart failure; I25.5 Ischemic cardiomyopathy; Z20.822 Contact with and (suspected) exposure to COVID-19; D63.8 Anemia in other chronic diseases classified elsewhere; D75.839 Thrombocytosis, unspecified; E78.2 Mixed hyperlipidemia; Z95.1 Presence of aortocoronary bypass graft; Z95.5 Presence of coronary angioplasty implant and graft; Z82.49 Family history of ischemic heart disease and other diseases of the circulatory system; Z82.62 Family history of osteoporosis; Z82.61 Family history of arthritis; Z79.82 Long term (current) use of aspirin
CPT/HCPCS: 36415; 71045; 80048; 80053; 80061; 80307; 81001; 83605; 83880; 84443; 84484; 85025; 87040; 87081; 87426; 87804; 93005; 96361; 96365; 96367; 96372; 96375; G0378; J2405